=== PATIENT | male | born 1965 | race Hispanic/Latino ===

== ENCOUNTER 2016-12-08 10:55 | Inpatient (IN) | payer OTHER ==
[2016-12-08] MEDS ORDERED: Albuterol-Ipratrop 3 mg / 0.5 (3 ml) UD ONE (11:01)
[2016-12-08] MEDS ORDERED: Albuterol-Ipratrop 3 mg / 0.5 (3 ml) UD IH STA (11:03)
[2016-12-08] MEDS ORDERED: cefTRIAXone 1 gm 100 ML IV STA (11:04)
[2016-12-08] MEDS ORDERED: Azithromycin 500MG/NS 250ml 250 ML IV STA (11:04)
--- NOTE | 2016-12-08 11:08 | ED PDOC ---
Arrival/HPI - General Chief Complaint: Shortness Of Breath Time Seen by Provider: 12/08/16 10:56 Historian: Patient - History of Present Illness Narrative History of Present Illness (Text): 12/08/16 11:07 51 year old male with a past medical history that includes COPD, atrial fibrillation on Coumadin, sleep apnea, and obesity presents to the emergency department with fevers, chills, and cough since . Denies chest pain, nausea, vomiting, or other complaints. Time/Duration: < week Symptom Onset: Gradual Symptom Course: Unchanged Modifying Factors (Text): None Associated Symptoms (Text): None Past Medical History - Provider Review Nursing Documentation Reviewed: Yes - Past History Past History: No Previous - Infectious Disease Hx of Infectious Diseases: None - Tetanus Immunization Tetanus Immunization: Unknown - Past Medical History Past Medical History: No Previous - Cardiac Hx Atrial Fibrillation: Yes Hx Congestive Heart Failure: Yes Hx Hypertension: Yes - Pulmonary Hx Respiratory Disorders: Yes (SOB [id number]) Hx Bronchitis: Yes Hx Chronic Obstructive Pulmonary Disease (COPD): Yes Hx Pneumonia: Yes - Neurological HX Cerebrovascular Accident: No - HEENT Hx HEENT Disorder: No Hx Blind: No Hx Cataracts: No Hx Deafness: No Hx Difficulty Chewing: No Hx Epistaxis: No Hx Glaucoma: No Hx Macular Degeneration: No - Renal Hx Renal Failure: No - Endocrine/Metabolic Hx Diabetes Mellitus Type 2: Yes - Hematological/Oncological Hx Unexplained Bleeding: No - Integumentary Hx Dermatological Disorder: No Hx Basal Cell Carcinoma: No Hx Eczema: No Hx Melanoma: No Hx Psoriasis: No Hx Squamous Cell Carcinoma: No - Musculoskeletal/Rheumatological Hx Falls: No - Gastrointestinal Hx Gastrointestinal Disorders: Yes Other/Comment: umbilical hernia repair more then five years ago - Genitourinary/Gynecological Hx Hematuria: Yes Hx Urinary Tract Infection: Yes - Psychiatric Hx Anxiety: Yes Hx Substance Use: No - Surgical History Other/Comment: umbilical hernia sx - Anesthesia Hx Anesthesia Reactions: No Hx Malignant Hyperthermia: No - Suicidal Assessment Feels Threatened In Home Enviroment: No Family/Social History - Physician Review Nursing Documentation Reviewed: Yes Family/Social History: Unknown Family HX Smoking Status: Former Smoker Hx Alcohol Use: No Amount per day: 2 Hx Substance Use: No Hx Substance Use Treatment: No Allergies/Home Meds Allergies/Adverse Reactions: Allergies cat dander Allergy (Uncoded 12/08/16 11:01) SHORTNESS OF BREATH Home Medications: Home Meds Medication Instructions Recorded Confirmed Allopurinol [Zyloprim] 100 mg PO DAILY 01/01/16 05/22/16 Benzonatate 100 mg PO TID 01/01/16 05/22/16 Furosemide [Lasix] 40 mg PO DAILY 01/01/16 05/22/16 Albuterol HFA [Ventolin HFA 90 2 puff IH [id number] PRN 02/14/16 05/22/16 mcg/actuation (8 g)] Review of Systems - Physician Review All systems were reviewed & negative as marked: Yes Physical Exam - Physical Exam Narrative Physical Exam (Text): - Review of Systems Constitutional: Fevers, Chills. absent: Fatigue, Weight Change Eyes: Normal ENT: Normal Respiratory: Cough absent: Sputum Cardiovascular: Normal absent: Chest pain, Palpitations, Syncope Gastrointestinal: Normal absent: Abdominal pain, Diarrhea, Nausea, Vomiting Genitourinary: Normal. absent: Dysuria, Frequency, Hematuria Musculoskeletal: Normal. absent: Arthralgias, Back Pain, Neck Pain Skin: Normal Neurological: Normal absent: Focal Weakness Endocrine: Normal Hemo/Lymphatic: Normal Psychiatric: Normal - Physical exam Patient appears age appropriate, speaking full sentences without difficulty - Systems Exam Head: Present: Atraumatic, Normocephalic Pupils: Present: PERRL Extraocular Muscles: Present: EOMI Conjunctiva: Present: Normal Mouth: Present: Moist Mucous Membranes Neck: Present: Normal Range of Motion. No: MIDLINE TENDERNESS, Paraspinal Tenderness Respiratory/Chest: Present: Expiratory wheezing in all lung gilliam, Good Air Exchange. No: Respiratory Distress, Accessory Muscle Use, Tachypneic Cardiovascular: Present: Regular Rate and Rhythm, Normal S1, S2, Peripheral Pulses Present. No: Murmurs Abdomen: Present: Normal Bowel Sounds, No: Tenderness, Peritoneal Signs, Rebound, Guarding, Distention Back: Present: Normal Inspection. No: Midline Tenderness, Paraspinal Tenderness Upper Extremity: Present: Normal Inspection. No: Cyanosis, Edema Lower Extremity: Present: Normal Inspection. No: Edema Neurological: Present: GCS=15, Speech Normal, cranial nerves II through XII fully intact with no cerebellar abnormality, neuro-sensory fully intact. No focal neurological deficits. Skin: Present: Warm, Dry, Normal Color. No: Rashes Lymphatic: Present: OX3, NI, NC Psychiatric: Present: Alert, Oriented x 3, Normal Insight, Normal Concentration Medical Decision Making ED Course and Treatment: Impression: 51 year old male presents with fever, chills, and cough for the past two days. On physical exam, patient has expiratory wheeze in all lung gilliam. Differential Diagnosis include but are not limited to: COPD exacerbation, PNA Plan: -- EKG, Chest X-ray -- Aspirin, Duoneb, Solu-Medrol, Rocephin, Azithromycin, Magnesium Sulfate -- Labs -- Reassess and disposition Prior Visits: Notes and results from previous visits were reviewed. Patient was last discharged discharged on 05/25/16 for acute exacerbation of COPD. Patient has a history of atrial fibrillation on Coumadin, sleep apnea, obesity, and COPD. Progress Notes: EKG shows NSR at 75 BPM with frequent PVC's, no ST segment elevations. Interpreted by me. Chest X-ray Charter Coordinator: Jad Degroot MD IMPRESSION: No active disease 12/08/16 11:[address] Shell in detail, agrees with tele obs, Dr. Ratliff on consult pt states he feels much better, but is still symptomatic. Wheezing improved aware of and agrees with plan as well - Critical Care Critical Care Minutes: 30 minutes - Lab Interpretations Lab Results: 12/08/16 11:00 12/08/16 11:00 Lab Results 12/08/16 11:00: WBC 20.9 H, RBC 4.63, Hgb 14.8, Hct 45.0, MCV 97.2, MCH 32.0, MCHC 32.9, RDW 15.1 H, Plt Count 277, MPV 10.1, Gran % 84.6 H, Lymph % (Auto) 9.7 L, [place] % (Auto) 4.3, Eos % (Auto) 1.2 L, Baso % (Auto) 0.2, Gran # 17.67 H , Lymph # 2.0, [place] # 0.9 H, Eos # 0.2, Baso # 0.04, PT 23.8 H, INR 2.20 H, APTT 34.8 H, Sodium 137, Potassium 3.7, Chloride 86 L, Carbon Dioxide 44 H, Anion Gap 11, BUN 19, Creatinine 0.8, Est GFR ( Amer) > 60, Est GFR (Non- Af Amer) > 60, Random Glucose 153 H, Calcium 9.4, Phosphorus 3.6, Magnesium 1.4 L, Total Bilirubin 0.9, AST 32, ALT 45, Alkaline Phosphatase 65, Lactate Dehydrogenase 616, Total Creatine Kinase 104, Troponin I 0.03, NT-Pro-B Natriuret Pep 548 H, Total Protein 7.9, Albumin 4.0, Globulin 3.9, Albumin/ Globulin Ratio 1.0 L - RAD Interpretation Radiology Orders: 12/08/16 11:04 CHEST PORTABLE [RAD] Stat - EKG Interpretation Interpreted by ED Physician: Yes Type: 12 lead EKG - Medication Orders Current Medication Orders: Azithromycin (Zithromax 500mg In Ns) 250 mls @ 166.667 mls/hr IV STAT STA PRN Reason: Protocol Stop: 12/08/16 12:33 Magnesium Sulfate/Dextrose (Magnesium Sulfate 1 Gm/100 Ml D5w) 100 mls @ 100 mls/hr IVPB ONCE ONE Stop: 12/08/16 12:03 Last Admin: 12/08/16 11:35 Dose: 100 MLS/HR eMAR Start Stop Document 12/08/16 11:35 JOL (Rec: 12/08/16 11:36 JOL [id number]) Intravenous Solution Start Date 12/08/16 Start Time 11:35 End Date 12/08/16 End time 12:35 Total Infusion Time 60 Discontinued Medications Albuterol/Ipratropium (Duoneb 3 Mg/0.5 Mg (3 Ml) Ud) Confirm Administered Dose 9 ml .ROUTE .STK-MED ONE Stop: 12/08/16 11:02 Last Admin: 12/08/16 11:35 Dose: 9 ML Albuterol/Ipratropium (Duoneb 3 Mg/0.5 Mg (3 Ml) Ud) 3 ml IH STAT STA Stop: 12/08/16 11:04 Last Admin: 12/08/16 11:35 Dose: 3 ML Aspirin (Aspirin Chewable) 324 mg PO STAT STA Stop: 12/08/16 11:04 Last Admin: 12/08/16 11:35 Dose: 324 MG Ceftriaxone Sodium (Rocephin 1 Gram Ivpb) 100 mls @ 200 mls/hr IV STAT STA PRN Reason: Protocol Stop: 12/08/16 11:33 Methylprednisolone (Solu-Medrol) 125 mg IVP STAT STA Stop: 12/08/16 11:04 Last Admin: 12/08/16 11:35 Dose: 125 MG IVP Administration Document 12/08/16 11:35 MAGGIE (Rec: 12/08/16 11:35 MAGGIE [id number]) Charges for Administration # of IVP Administrations 1 - Scribe Statement The provider has reviewed the documentation as recorded by the Petrona Keller Provider Scribe Attestation: All medical record entries made by the Elishaibe were at my direction and personally dictated by me. I have reviewed the chart and agree that the record accurately reflects my personal performance of the history, physical exam, medical decision making, and the department course for this patient. I have also personally directed, reviewed, and agree with the discharge instructions and disposition. Disposition/Present on Arrival - Present on Arrival Any Indicators Present on Arrival: No History of DVT/PE: No History of Uncontrolled Diabetes: No Urinary Catheter: No History of Decub. Ulcer: No History Surgical Site Infection Following: None - Disposition Have Diagnosis and Disposition been Completed?: Yes Diagnosis: Acute exacerbation of chronic obstructive pulmonary disease (COPD) Disposition: HOSPITALIZED Disposition Time: 11:56 Patient Plan: Observation Patient Problems: Current Active Problems Problem Status Diagnosed Acute exacerbation of chronic obstructive pulmonary disease (COPD) Acute Bradycardia Acute Condition: FAIR
[2016-12-08 11:12] LABS: ADD MANUAL DIFF? NO
[2016-12-08 11:14] LABS: BASO # 0.04 K/mm3 (0.0-2.0); BASO % 0.2 % (0.0-3.0); EOS # 0.2 (0.0-0.7); EOS % 1.2 % (1.5-5.0); GRAN # 17.67 (1.4-6.5); GRAN % 84.6 % (50.0-68.0); LYMPH % 9.7 % (22.0-35.0); MEAN CELL VOLUME 97.2 fL (80.0-105.0); MEAN CORPUSCULAR HGB CONC 32.9 g/dl (31.0-37.0); MEAN PLATELET VOLUME 10.1 fl (7.0-11.0); MONO # 0.9 (0.1-0.6); MONO % 4.3 % (1.0-6.0); PLATELET COUNT 277 10^3/uL (120.0-450.0); RED CELL DISTRIBUTION WIDTH 15.1 % (11.5-14.5); WHITE BLOOD COUNT 20.9 10^3/ul (4.5-11.0)
[2016-12-08 11:25] LABS: INR 2.2 (0.93-1.08); PARTIAL THROMBOPLASTIN TIME 34.8 Seconds (23.7-30.8)
--- NOTE | 2016-12-08 11:25 | RAD ---
HISTORY: cough COMPARISON: No prior. FINDINGS: LUNGS: No active pulmonary disease. PLEURA: No significant pleural effusion identified, no pneumothorax apparent. CARDIOVASCULAR: Normal. OSSEOUS STRUCTURES: No significant abnormalities. VISUALIZED UPPER ABDOMEN: Normal. OTHER FINDINGS: None. IMPRESSION: No active disease.
[2016-12-08 11:27] LABS: ALKALINE PHOSPHATASE 65 U/L (38-133); ALT/SGPT 45 U/L (7-56); AST/SGOT 32 U/L (15-59); BILIRUBIN,TOTAL 0.9 mg/dL (0.2-1.3); BLOOD UREA NITROGEN 19 mg/dL (7-21); CALCIUM 9.4 mg/dL (8.4-10.5); CHLORIDE 86 mmol/L (98-107); GFR AFRICAN-AMERICAN > 60; GLUCOSE,RANDOM 153 mg/dL (70-110); MAGNESIUM 1.4 mg/dL (1.7-2.2); PHOSPHOROUS 3.6 mg/dL (2.5-4.5); POTASSIUM 3.7 mmol/L (3.6-5.0); SODIUM 137 mmol/L (132-148); TOTAL PROTEIN 7.9 g/dL (5.8-8.3)
[2016-12-08 11:37] LABS: CARBON DIOXIDE 44 mmol/L (21-33)
[2016-12-08 11:39] LABS: TROPONIN I 0.03 ng/mL
[2016-12-08] MEDS ORDERED: Albuterol 0.083% Inhal Sol (2.5 mg/3 mL) UD IH PRN (11:57)
[2016-12-08] MEDS ORDERED: Albuterol-Ipratrop 3 mg / 0.5 (3 ml) UD IH PRN (11:57)
[2016-12-08] MEDS: MethylPREDNISolone 40 mg Vial IVP SCH ×3 (12:46→23:28)
[2016-12-08] MEDS: Omega-3-Acid Ethyl Esters 1 GM Cap PO SCH ×2 (13:08→18:01)
[2016-12-08] MEDS: Pantoprazole 40 mg EC Tab PO SCH (13:08)
[2016-12-08] MEDS: Levalbuterol 0.63 MG/3 ML Inhal Soln UD IH SCH ×2 (14:44→19:08)
--- NOTE | 2016-12-08 14:44 | CARD ---
APPROVED REPORT EKG Measurement Heart [id number] <Conclusion> Sinus rhythm with occasional premature ventricular complexes Nonspecific ST and T wave abnormality Abnormal ECG
[2016-12-08] MEDS: Levalbuterol 0.63 MG/3 ML Inhal Soln UD IH PRN ×2 (15:03→23:30)
[2016-12-08 15:21] LABS: CHOLESTEROL 127 mg/dL (130-200)
[2016-12-08] MEDS: Digoxin 125 mcg (0.125 mg) Tab PO SCH (15:34)
[2016-12-08] MEDS: Magnesium Oxide 400 mg Tab UD PO SCH ×2 (15:35→18:02)
[2016-12-08 16:01] VITALS: BMI 34.4
[2016-12-08] MEDS ORDERED: Pneumococcal 23-Valent Vaccine IM ONE (16:02)
[2016-12-08] MEDS: Thiamine 100 mg/ml Inj IV SCH (16:40)
[2016-12-08 16:49] LABS: ARTERIAL BLOOD GAS HCO3 38.4 mmol/L (21-28); ARTERIAL BLOOD GAS O2 CAPACITY 19.2 mL/dl (16-24); ARTERIAL BLOOD GAS O2 CONTENT 18.7 ML/dl (15-23); ARTERIAL BLOOD HGB O2 SAT 93.7 % (95.0-98.0); CARBOXYHEMOGLOBIN 3.1 % (0.5-1.5); HHB 2.7 % (0-5); METHEMOGLOBIN 0.5 % (0.0-3.0)
[2016-12-08 17:04] LABS: TROPONIN I 0.03 ng/mL
--- NOTE | 2016-12-08 17:57 | HP ---
HISTORY OF PRESENT ILLNESS: The patient is a 51-year-old morbidly obese male with poor compliance came to the office with increasing shortness of breath, wheezing, difficulty with breathing and shortness of breath, dyspnea on exertion. The patient missed his last office appointment. The patient ____ that the symptoms are getting worse for the last 3 days. The patient came to the office, then the patient was sent to the Emergency Room because of respiratory compromise. The patient was brought to the Emergency Room by [facility] ambulance. The patient also complained of fever, chills, cough. A 13-system review was done. Pertinent positive and negative dictated above. CODE STATUS: Full code. ALLERGIES: CAT DANDER. Height is 5 feet 7 inches. WEIGHT: 220. BMI: 35. HOME MEDICATIONS: As per the office records reviewed. The patient is on DuoNeb nebulizer treatment, allopurinol 300 mg daily, Altace 2.5 mg daily which is stopped. The patient is on Amaryl 4 mg once or twice a day. The patient is ____ 62.5, 25. Coreg 12.5 mg twice a day, Coumadin 2 mg daily, Cymbalta 30 mg daily, digoxin 125 mcg daily, Drisdol 50,000 weekly, Folic acid 1 mg daily. Lasix 40 mg twice a day to either 3 times a day or q.i.d. p.r.n., Lipitor 60 mg daily, gemfibrozil or Lovaza, magnesium oxide 2 tablets twice a day 400. The patient is on MiraLax 3 times a day, prednisone 10, Protonix 40 mg, thiamine 100 mg, verapamil 40 mg 3 times a day, vitamin D3, 2000 units daily, Singulair 10 mg daily, Ultram 50 mg 3 times a day, Tessalon Perles 200 three times a day, Lasix 40 mg twice a day around the clock and t.i.d. and q.i.d. p.r.n., Lipitor 20 mg daily, Lovaza 2 capsules twice a day, Xopenex nebulizer. SOCIAL HISTORY: Positive for smoking. Positive for alcohol use. Denies communicable transmissible diseases. PAST MEDICAL AND SURGICAL HISTORY: End-stage chronic oxygen and steroid dependent chronic obstructive pulmonary disease, history of sleep apnea, history of morbid obesity, history of poor compliance, history of noninsulin- requiring diabetes mellitus, history of paroxysmal atrial fibrillation, history of dilated cardiomyopathy, history of systolic congestive heart failure, history of diabetic neuropathy, history of dyslipidemia, hyperlipidemia, hypertriglyceridemia, history of hypomagnesemia, history of hypercholesterolemia. The patient's past medical history is significant for multiple exacerbations of COPD with bronchospasm, history of severe advanced obstructive sleep apnea, respiratory failure, history ____, respiratory failure , history of morbid obesity, history of hypovitaminosis D, history of left bundle branch block, history of hypoxemia, metabolic alkalosis, history of systemic inflammatory response syndrome, history of noncompliance, history of acute on chronic systolic congestive heart failure. The patient's past medical history is also significant for congestive heart failure, atrial fibrillation, history of hyperuricemia, history of anxiety, history of pneumonia, history of umbilical hernia surgery, history of sleep apnea. PHYSICAL EXAMINATION: GENERAL: The patient is seen in stretcher #7 in the Emergency Room. VITAL SIGNS: T-max 98.4, heart rate 78-98, blood pressure 105/80. Respirations 24-26, O2 sat on nasal canula 95%. HEAD: Normocephalic, atraumatic. HEENT: Shows a short neck decreased oropharyngeal space. NECK: No neck rigidity. Questionable jugular venous distension. CHEST: Kyphosis. LUNGS: Shows decreased air entry. Positive wheezing, positive rhonchi. CARDIOVASCULAR: Shows S1, S2, regular rhythm. Questionable soft systolic murmur right second intercostal space, left sternal border, left second intercostal space. ABDOMEN: Morbidly obese, protuberant. GENITALIA: Male. RECTAL: Deferred. EXTREMITIES: surprisingly does not show pitting edema, trace swelling. No calf tenderness. No Homans sign. NEUROLOGIC: The patient is alert, awake, oriented x 3. Cranial nerves II-XII limited. Gait examination not tested. VASCULAR: Palpable pulses. MUSCULOSKELETAL: Shows a body mass index of greater than 34. DIAGNOSTICS: WBC 21,000, hemoglobin and hematocrit 14.8 and 45 platelet 277, granulocytes 85%. PT 23.8, INR 2.2. Sodium 137, potassium 3.7, chloride 86, CO2 of 24, anion gap 11, BUN 19, creatinine 0.8, GFR greater than 60, glucose 153, calcium 9.4, phosphorus 3.6, magnesium 1.4, troponin 0.03. BNP 548. Chest x-ray was done in the Emergency Room, shows some increased lung markings. EKG done in the Emergency Room shows sinus rhythm, baseline artifact. TREATMENT IN THE EMERGENCY ROOM: The patient was given Zithromax 500 IV, Solu- Medrol 125 was given. The patient was given magnesium sulfate 1 gram, DuoNeb nebulizer was given, aspirin 324 was given. The patient was advised to be admitted. Initially, the patient wanted to be discharged, but the patient then agreed to be admitted. Also noted to be mentioned that when patient came to the office today in the morning, the patient refused to go to the Emergency Room , but later on changed his mind and the patient's next of kin brought the patient to the Emergency Room by [email or web address] ambulance. IMPRESSION AND PLAN: 1. Acute exacerbation of chronic obstructive pulmonary disease with bronchospasm and respiratory insufficiency and Respiratory Failure with hypercarbia.. 2. Leukocytosis with granulocytosis. 3. Coumadin dependent atrial fibrillation. 4. Metabolic alkalosis. 5. Type 2 non-insulin requiring diabetes mellitus. 6. Hypomagnesemia. 7. History of acute on chronic recurrent systolic congestive heart failure. 8. Morbid obesity. 9. Poor compliance. 10. History of systolic congestive heart failure. 11. History of nicotine dependence. 12. History of hyperuricemia. 13. History of Coumadin dependent atrial fibrillation. 14. Hypovitaminosis D. 15. History of dyslipidemia, history of hypomagnesemia, history of constipation. PLAN: At this time, the patient is to be placed on telemetry observation. The patient has been ordered serial labs, serial cardiac enzymes. Blood cultures ordered. Pulmonary, cardiology consultations ordered. The patient has been ordered Calan 40 mg 3 times a day, Coreg 12.5 twice a day, Coumadin 2 mg daily, Cymbalta 30 mg daily. The patient is started on Diamox 250 twice a day, Vibramycin 100 mg IV q. 12. The patient received multiple DuoNeb treatments. The patient is on folic acid, Humalog high dose sliding scale coverage, digoxin 0.125 daily, Lipitor 20 mg daily, Lovaza 2 capsules twice a day, magnesium oxide 400 mg 3 times a day. The patient was given magnesium sulfate rider, Protonix 40 daily, Rocephin 1 gram IV daily. Solu-Medrol was given 125. The patient will be continued on Solu-Medrol 40 mg IV q. 6, Singulair 10 mg at bedtime, Tessalon Perles 100 mg 3 times a day, Ultram 50 mg b.i.d. p.r.n., thiamine 100 mg daily, Xopenex nebulizer 163 mg q. 6 hours, allopurinol 100 mg daily, Amaryl 4 mg at breakfast. The patient has a repeat EKG ordered. Consistent carbohydrate heart healthy diet ordered. The patient is to be continued on the above therapeutic intervention until further evaluation and recommendations by cardiology and pulmonary. All diagnostic data, therapeutic intervention reviewed. Orders reviewed. The patient's condition explained to the patient and the patient's girlfriend and the daughter ____ at length. I have explained to them that the patient's prognosis is guarded to poor because of noncompliance and because of his multiple complications with underlying comorbidity, which they acknowledged and understand. The patient's further management will be dependent on the patient's clinical condition, hemodynamic status, and as per patient response to therapeutic intervention, as per patient's diagnostic test results and as per recommendation by all physicians involved in the care of the patient. Dictated and electronically signed, not read. Cedrick Shell MD cc: [id number] TT: 12/08/2016 17:56:31 jn MTDD
[2016-12-08] MEDS: Insulin Lispro (HUMAlog) HIGH Coverage SC SCH ×2 (18:00→21:47)
--- NOTE | 2016-12-08 19:39 | CON ---
DATE: 12/08/2016 REFERRING PHYSICIAN: Dr. Shell. REASON FOR CONSULT: Exacerbation of chronic obstructive lung disease, respiratory failure, noncompli ant. HISTORY OF PRESENT ILLNESS: This is a 51-year-old gentleman with severe obstructive lung disease, hy poventilation syndrome, may have a sleep apnea syndrome, never had a sleep study done, noncompliant, history of atrial fibrillation, who comes into the Emergency Room with fever, chills, cough, shortnes s of breath. Received IV and inhaled bronchodilator with some benefit of persistent symptoms h im to be admitted. PAST MEDICAL HISTORY: Atrial fibrillation, diastolic heart failure, hypertension, chronic obstructiv e lung disease, history of pneumonia, history of diabetes. FAMILY HISTORY: No significant cardiopulmonary disease reported. SOCIAL HISTORY: Former smoker, denied any alcohol use. ALLERGIES: TO NO MEDICATION, BUT HE IS ALLERGIC TO CAT DANDER. MEDICATIONS: He is on Amaryl 4 mg ACB, Calan 40 mg 3 times a day, Coreg 12.5 mg twice a day, Coumadi n 2 mg daily, Cymbalta 30 mg daily, Diamox 250 mg twice a day, doxycycline 100 mg twice a day, folic acid 1 mg daily, insulin coverage, Klonopin 0.25 mg twice a day, digoxin 0.125 mg daily, Lipitor 20 m g daily, Lovaza 2 grams twice a day, mag oxide 400 mg 3 times a day, Nicoderm patch daily, Protonix 4 0 mg daily, Rocephin 1 gram daily, Singulair 10 mg daily, Solu-Medrol 40 mg q.6 hours, Tessalon Perle s 3 times a day, vitamin B 100 mg daily, Xopenex 0.63 q.2 hours p.r.n. and q.6 hours around the clock , allopurinol 100 mg daily. REVIEW OF SYSTEMS: No headache. Has some rhinitis, postnasal drip, cough and shortness of breath. No chest pain, no nausea, no vomiting, no diarrhea. No dysuria. or leg swelling. PHYSICAL EXAMINATION: GENERAL: Sitting side of the bed, [id number] distress secondary to cough and shortness of dequan th. VITAL SIGNS: Temp is 98, heart rate is 77, respiratory rate is 26, blood pressure 170/80, pulse ox i s 90% on nasal cannula. HEENT: Moist mucous membranes. Crowded airway. Mallampati score is 4. NECK: Supple. No JVD. LUNGS: Diffuse expiratory wheezing, poor airflow. HEART: S1, S2 tachycardic. ABDOMEN: Soft, nontender. No organomegaly. EXTREMITIES: Has trace edema. NEUROLOGIC: Awake, alert, follows simple commands. LABORATORY DATA: Shows hemoglobin 14.8, hematocrit 45.0, WBC 20.9, and platelet is 277. INR is 2.20 , PTT is 34. Blood gases shows pH 7.40, pCO2 62, O2 of 103; this is on 40% oxygen. Sodium 137, pota ssium 3.7, chloride 86, bicarbonate 44, BUN 19, creatinine 0.8, glucose 153, calcium , phosphoru s 3.6, magnesium 1.4, AST 32, ALT 45, alkaline phosphatase is 65. Troponin is less than 0.03, proBNP 548, albumin 4.0, triglycerides 146, HDL cholesterol is 40. IMPRESSION AND PLAN: Respiratory failure with CO2 retention and hypoxemia, chronic obstructive lung disease, history of atrial fibrillation, may have a sleep apnea syndrome, diabetes, hypertension. Ca se discussed with the nursing staff. The patient was placed on BiPAP 14/8 with 40% oxygen while slee ping and respiratory distress. Continue IV and inhaled bronchodilator. Gastric prophylaxis. Antico agulation. Deep venous thrombosis prophylaxis. Fall precaution. Avoid sedation. Thank you and will follow with you. Ron Ratliff MD cc: [id number] TT: 12/08/2016 19:38:56 Confirmation # [id number] Dictation # [id number] ulises
[2016-12-08 20:47] LABS: TROPONIN I 0.02 ng/mL
[2016-12-09] MEDS: Levalbuterol 0.63 MG/3 ML Inhal Soln UD IH SCH ×4 (02:25→20:09)
[2016-12-09] MEDS: MethylPREDNISolone 40 mg Vial IVP SCH ×3 (05:18→17:33)
[2016-12-09 07:24] LABS: INR 1.58 (0.93-1.08)
[2016-12-09 07:25] LABS: MEAN CELL VOLUME 96.9 fL (80.0-105.0); MEAN CORPUSCULAR HEMOGLOBIN 31.3 pg (25.0-35.0); MEAN CORPUSCULAR HGB CONC 32.3 g/dl (31.0-37.0); MEAN PLATELET VOLUME 10.2 fl (7.0-11.0); PLATELET COUNT 272 10^3/uL (120.0-450.0); RED CELL DISTRIBUTION WIDTH 15.2 % (11.5-14.5)
[2016-12-09 07:27] LABS: ADD MANUAL DIFF? YES; WHITE BLOOD COUNT 27.5 10^3/ul (4.5-11.0)
[2016-12-09 07:29] LABS: ALKALINE PHOSPHATASE 72 U/L (38-133); ALT/SGPT 42 U/L (7-56); AST/SGOT 30 U/L (15-59); BILIRUBIN,DIRECT 0.5 mg/dL (0.0-0.4); BILIRUBIN,TOTAL 0.6 mg/dL (0.2-1.3); BLOOD UREA NITROGEN 22 mg/dL (7-21); CALCIUM 9.6 mg/dL (8.4-10.5); CARBON DIOXIDE 38 mmol/L (21-33); CHLORIDE 92 mmol/L (98-107); GFR AFRICAN-AMERICAN > 60; GLUCOSE,RANDOM 167 mg/dL (70-110); SODIUM 139 mmol/L (132-148); TOTAL PROTEIN 8.2 g/dL (5.8-8.3)
[2016-12-09] MEDS: Insulin Lispro (HUMAlog) HIGH Coverage SC SCH ×4 (08:01→21:48)
[2016-12-09 08:37] LABS: BAND 1 % (0-2); NEUTROPHIL 94 % (50.0-70.0)
[2016-12-09] MEDS ORDERED: cefTRIAXone 1 gm 100 ML IVPB SCH (10:00)
[2016-12-09] MEDS: Magnesium Oxide 400 mg Tab UD PO SCH ×3 (10:18→17:30)
[2016-12-09] MEDS: Pantoprazole 40 mg EC Tab PO SCH (10:19)
[2016-12-09] MEDS: Thiamine 100 mg/ml Inj IV SCH (10:19)
[2016-12-09] MEDS: Omega-3-Acid Ethyl Esters 1 GM Cap PO SCH ×2 (10:25→17:30)
--- NOTE | 2016-12-09 11:47 | CP.PCM.CON ---
History of Present Illness - History of Present Illness History of Present Illness: 51 year old male with PMH of COPD with a history of heavy smoking, systolic CHF with Ejection fraction 10-15%, HTN, S/P umbilical hernia surgery, obesity with BMI 34 came in to [facility] complaining of cough associated with SOB and chills but denies fever, for the past 3 days. He denies chest pain, no clear phlegm, no headache or dizziness, no rhinorrhea, no sore throat, no body aches. He also denies nausea or vomiting, no abdominal pain, no diarrhea, no dysuria, no dysphagia. In the ED, the patient is noted to have leukocytosis and Infectious Diseases consult is requested to further evaluate and manage. The patient denies recent travel outside of [place] in the past 3 months, denies animal contacts, has not been hospitalized in the past 3 months. He does not recall being on antibiotics in the past 3 months but has been treated for COPD exacerbation in the past 3 months but not hospitalized. Review of Systems - Review of Systems All systems: reviewed and no additional remarkable complaints except (as per HPI ) Past Patient History - Infectious Disease Hx of Infectious Diseases: None - Tetanus Immunizations Tetanus Immunization: Unknown - Past Medical History & Family History Past Medical History?: Yes Past Family History: Reviewed and not pertinent - Past Social History Smoking Status: Heavy Smoker > 10 Cigarettes Daily Alcohol: Occasional Drugs: Denies Home Situation {Lives}: With Family - CARDIAC Hx Cardia Arrhythmia: Yes (a fib) Hx Congestive Heart Failure: Yes Hx Hypertension: Yes - PULMONARY Hx Respiratory Disorders: Yes (SOB [id number]/15) Hx Bronchitis: Yes Hx Chronic Obstructive Pulmonary Disease (COPD): Yes Hx Pneumonia: Yes Hx Sleep Apnea: Yes Other/Comment: has home o2 and nebulizer machine - NEUROLOGICAL HX Cerebrovascular Accident: No - HEENT Hx HEENT Problems: No Hx Blind: No Hx Cataracts: No Hx Deafness: No Hx Difficulty Chewing: No Hx Epistaxis: No Hx Glaucoma: No Hx Macular Degeneration: No - RENAL Hx Renal Failure: No - ENDOCRINE/METABOLIC Hx Diabetes Mellitus Type 2: Yes - HEMATOLOGICAL/ONCOLOGICAL Hx Unexplained Bleeding: No - INTEGUMENTARY Other/Comment: multiple skin discolorations to ble - MUSCULOSKELETAL/RHEUMATOLOGICAL Hx Falls: No - GASTROINTESTINAL Hx Gastrointestinal Disorders: Yes (obese) Other/Comment: umbilical hernia repair more then five years ago - GENITOURINARY/GYNECOLOGICAL Hx Hematuria: Yes Hx Urinary Tract Infection: Yes - PSYCHIATRIC Hx Substance Use: No - SURGICAL HISTORY Other/Comment: umbilical hernia sx - ANESTHESIA Hx Anesthesia Reactions: No Hx Malignant Hyperthermia: No Meds Allergies/Adverse Reactions: Allergies Allergy/AdvReac Type Severity Reaction Status Date / Time cat dander Allergy SHORTNESS Uncoded 12/08/16 11:01 OF BREATH - Medications Medications: Current Medications Acetazolamide (Diamox 250 Mg Tab) 250 mg PO BID [facility] Last Admin: 12/08/16 18:00 Dose: 250 mg Allopurinol (Zyloprim) 100 mg PO DAILY [facility] Last Admin: 12/08/16 13:08 Dose: 100 mg Atorvastatin Calcium (Lipitor) 20 mg PO DIN [facility] Last Admin: 12/08/16 18:01 Dose: 20 mg Benzonatate (Tessalon Perles) 100 mg PO TID [facility] Last Admin: 12/08/16 18:02 Dose: 100 mg Carvedilol (Coreg) 12.5 mg PO BID [facility] Last Admin: 12/08/16 18:00 Dose: 12.5 mg Clonazepam (Klonopin) 0.25 mg PO BID [facility] PRN Reason: Protocol Last Admin: 12/08/16 18:01 Dose: 0.25 mg Digoxin (Lanoxin) 0.125 mg PO 1400 [facility] Last Admin: 12/08/16 15:34 Dose: 0.125 mg Duloxetine HCl (Cymbalta) 30 mg PO DAILY [facility] Last Admin: 12/08/16 13:07 Dose: 30 mg Folic Acid (Folic Acid) 1 mg PO DAILY [facility] Last Admin: 12/08/16 13:07 Dose: 1 mg Glimepiride (Amaryl) 4 mg PO ACB [facility] Last Admin: 12/08/16 12:48 Dose: Not Given Ceftriaxone Sodium (Rocephin 1 Gram Ivpb) 100 mls @ 100 mls/hr IVPB DAILY [facility] PRN Reason: Protocol Stop: 12/18/16 10:59 Doxycycline Hyclate 100 mg/ (Sodium Chloride) 100 mls @ 100 mls/hr IVPB Q12 [facility] PRN Reason: Protocol Stop: 12/16/16 12:16 Insulin Human Lispro (Humalog High) 0 units SC ACHS [facility] Last Admin: 12/08/16 21:47 Dose: Not Given Levalbuterol HCl (Xopenex) 0.63 mg IH [id number] [facility] Last Admin: 12/08/16 19:08 Dose: 0.63 mg Levalbuterol HCl (Xopenex) 0.63 mg IH Q2H PRN PRN Reason: Shortness of Breath Last Admin: 12/08/16 15:03 Dose: 0.63 mg Magnesium Oxide (Mag-Ox) 400 mg PO TID [facility] Last Admin: 12/08/16 18:02 Dose: 400 mg Methylprednisolone (Solu-Medrol) 40 mg IVP Q6H [facility] Last Admin: 12/08/16 18:02 Dose: 40 mg Montelukast Sodium (Singulair) 10 mg PO HS [facility] Last Admin: 12/08/16 21:56 Dose: 10 mg Nicotine (Nicoderm Cq) 1 patch TD DAILY [facility] Last Admin: 12/08/16 18:27 Dose: Not Given [id number] Ethyl Esters (Lovaza) 2 gm PO BID [facility] Last Admin: 12/08/16 18:01 Dose: Not Given Pantoprazole Sodium (Protonix Ec Tab) 40 mg PO DAILY [facility] Last Admin: 12/08/16 13:08 Dose: 40 mg Thiamine HCl (Vitamin B1 Inj) 100 mg IV DAILY [facility] Stop: 12/11/16 16:30 Last Admin: 12/08/16 16:40 Dose: Not Given Tramadol HCl (Ultram) 50 mg PO TID PRN PRN Reason: Pain, moderate (4-7) Verapamil HCl (Calan Tab) 40 mg PO TID [facility] Last Admin: 12/08/16 17:59 Dose: 40 mg Warfarin Sodium (Coumadin) 2 mg PO 1800 [facility] PRN Reason: Protocol Last Admin: 12/08/16 18:00 Dose: 2 mg Physical Exam - Constitutional Appears: Non-toxic, No Acute Distress - Head Exam Head Exam: NORMAL INSPECTION - ENT Exam ENT Exam: Mucous Membranes Moist - Neck Exam Neck exam: Negative for: Lymphadenopathy, Meningismus - Respiratory Exam Respiratory Exam: Decreased Breath Sounds - Cardiovascular Exam Cardiovascular Exam: +S1, +S2 - GI/Abdominal Exam GI & Abdominal Exam: Soft. absent: Tenderness Results - Vital Signs Recent Vital Signs: Last Vital Signs Temp 98.1 F 12/08/16 18:00 Pulse 78 12/08/16 22:00 Resp 18 12/08/16 18:00 BP 133/71 12/08/16 18:00 Pulse Ox 95 12/08/16 11:58 - Labs Result Diagrams: 12/09/16 07:04 12/09/16 07:04 Labs: Laboratory Results - last 24 hr 12/08/16 12/08/16 12/08/16 16:10 16:40 18:35 pCO2 62 H pO2 103.0 H HCO3 38.4 H ABG pH 7.40 ABG Total CO2 40.3 H ABG O2 Saturation 97.2 ABG O2 Content 18.7 ABG Base Excess 10.9 H ABG Hemoglobin 14.1 ABG Carboxyhemoglobin 3.1 H POC ABG HHb (Measured) 2.7 ABG Methemoglobin 0.5 ABG O2 Capacity 19.2 Hgb O2 Saturation 93.7 L FiO2 40.0 POC Glucose (mg/dL) Total Creatine Kinase 96 Troponin I 0.03 Urine Opiates Screen Negative Urine Methadone Screen Negative Ur Barbiturates Screen Negative Ur Phencyclidine Scrn Negative Ur Amphetamines Screen Negative U Benzodiazepines Scrn Negative U Oth Cocaine Metabols Negative U Cannabinoids Screen Negative 12/08/16 12/08/16 20:00 21:35 pCO2 pO2 HCO3 ABG pH ABG Total CO2 ABG O2 Saturation ABG O2 Content ABG Base Excess ABG Hemoglobin ABG Carboxyhemoglobin POC ABG HHb (Measured) ABG Methemoglobin ABG O2 Capacity Hgb O2 Saturation FiO2 POC Glucose (mg/dL) 174 H Total Creatine Kinase 111 Troponin I 0.02 D Urine Opiates Screen Urine Methadone Screen Ur Barbiturates Screen Ur Phencyclidine Scrn Ur Amphetamines Screen U Benzodiazepines Scrn U Oth Cocaine Metabols U Cannabinoids Screen Assessment & Plan - Assessment and Plan (Free Text) Plan: Assessment Systemic Inflammatory Response Syndrome, R/O sepsis source to be determined; patient is presenting with acute exacerabtion of COPD history of Ventilator-dependent respiratory failure with shock - from HCAP history of ESBL E. coli HCAP in 2014 CHF with EF 25% COPD history of ESBL E. coli pneumonia in 04/2015 history of recent NSTEMI Afib DM history of alcohol abuse Plan started patient on Cefepime and Doxycycline pending blood, sputum cx, PCT; CXR reviewed which did not show infiltrates Will monitor clinically
[2016-12-09] MEDS: Cefepime 1gm in NS 100ml 100 ML IVPB SCH ×2 (12:11→21:46)
--- NOTE | 2016-12-09 12:14 | CARD ---
APPROVED REPORT EKG Measurement Heart [id number] <Conclusion> Normal sinus rhythm Nonspecific intraventricular block Abnormal ECG
[2016-12-09] MEDS: Digoxin 125 mcg (0.125 mg) Tab PO SCH (14:06)
--- NOTE | 2016-12-09 15:51 | PN ---
DATE: 12/09/2016 The patient is seen sitting up in the bed in room 261, bed 1. The patient states that his breathing is significantly better. The patient does not complain of any chest pain or shortness of breath today. The patient stated that his breathing is significantly better, almost back to normal. PHYSICAL EXAMINATION: VITAL SIGNS: T-max 98.3, pulse 78, blood pressure 135/75-124/77, respirations 20, O2 sat is 99%. Intake/output noted. HEAD: Normocephalic, atraumatic. HEENT: Shows pink conjunctivae, anicteric sclerae. No oropharyngeal lesion. NECK: No neck rigidity. CHEST: Kyphosis. LUNGS: Shows decreased breath sounds. Positive rhonchi. CARDIOVASCULAR: S1, S2, regular rhythm. ABDOMEN: Protuberant, obese. GENITALIA: Male. RECTAL: Deferred. EXTREMITIES: Shows no pitting edema, no calf tenderness, no Homans signs. ABDOMEN: Protuberant, obese. MUSCULOSKELETAL: Shows a body mass index of 35. NEUROLOGIC: Cranial nerves II-XII limited. GAIT: Not tested. VASCULAR: Palpable pulses. PSYCHIATRIC: Negative. DIAGNOSTICS: WBCs 27.5, granulocytes 94%. PT 17.1. Chemistry: Chloride 92, CO2 is down to 38 from 48, BUN 22 from 19. Fingerstick blood sugar 147, 182, 167, 164. Magnesium 2.0. LFTs are normal. Troponin is negative. Procalcitonin level is 0.12. Cholesterol is 127, LDL 53, HDL 40. Urine drug screen is negative. Blood cultures no growth. EKG done today shows sinus rhythm, questionable left axis deviation. IMPRESSION AND PLAN: 1. Respiratory failure with hypercarbia and hypoxemia. 2. Systemic inflammatory response syndrome. 3. Hypertension. 4. History of Coumadin dependent atrial fibrillation. 5. Leukocytosis with granulocytosis. 6. Coumadin-dependent atrial fibrillation. 7. Hypercarbia. 8. Metabolic alkalosis. 9. Hypomagnesemia. 10. Noninsulin requiring diabetes mellitus. 11. Hypochloremic metabolic alkalosis. 12. Hypomagnesemia. 13. Questionable left axis deviation. 14. Acute exacerbation of chronic obstructive pulmonary disease with bronchospasm and respiratory failure. 15. Morbid obesity with elevated body mass index of 35. 16. Morbid obesity. 17. Hypertension. 18. Leukocytosis with granulocytosis. 19. Diabetic neuropathy. 20. History of systolic congestive heart failure. 21. Hypomagnesemia. 22. History of nicotine and alcohol abuse. 23. History of hyperuricemia. 1. Acute exacerbation of chronic obstructive pulmonary disease with bronchospasm and respiratory insufficiency and Respiratory Failure with hypercarbia.. 2. Leukocytosis with granulocytosis. 3. Coumadin dependent atrial fibrillation. 4. Metabolic alkalosis. 5. Type 2 non-insulin requiring diabetes mellitus. 6. Hypomagnesemia. 7. History of acute on chronic recurrent systolic congestive heart failure. 8. Morbid obesity. 9. Poor compliance. 10. History of systolic congestive heart failure. 11. History of nicotine dependence. 12. History of hyperuricemia. 13. History of Coumadin dependent atrial fibrillation. 14. Hypovitaminosis D. 15. History of dyslipidemia, history of hypomagnesemia, history of constipation. PLAN: At this time, patient is to be continued on therapeutic interventions as per the MAR with serial labs. CURRENT CONSULTATIONS: 1. Cardiology. 2. Infectious disease. 3. Pulmonary. CURRENT MEDICATIONS: 1. Calan 40 mg 3 times a day. 2. Coreg 12.5 twice a day. 3. Coumadin 2 mg daily. 4. Cymbalta 30 mg daily. 5. Diamox 250 twice a day. 6. Vibramycin 100 mg IV q. 12. 7. Folic acid 1 mg daily. 8. Humalog high dose sliding scale coverage before meals and at bedtime. 9. Klonopin 0.25 twice a day, which was started yesterday for upper extremity tremors. 10. Digoxin 0.125 11. Lasix 40 mg p.o. daily ordered by cardiology. 12. Lipitor 20 mg daily. 13. Lovaza 2 grams twice a day. 14. Magnesium oxide 400 mg 3 times a day. 15. Cefepime 1 g IV q. 8. 16. Nicotine patch 21 mg daily. 17. Protonix 40 mg daily. 18. Solu-Medrol 40 mg IV q. 6. 19. Singulair 10 mg at bedtime. 20. Tessalon Perles 100 three times a day. 21. Ultram 50 mg t.i.d. p.r.n. 22. Thiamine 100 mg IV daily. 23. Xopenex 0.63 mg q. 2 hours p.r.n. and q. 6 hours around the clock. 24. Allopurinol 300 mg daily. 25. Amaryl 4 mg with breakfast. The patient is also ordered BiPAP setting /, FiO2 40%. The patient has been ordered out of bed. The patient will be continued on the above therapeutic intervention. The patient updated about his condition. The patient was counseled about cessation of smoking and alcohol. The patient was counseled about weight loss, etc. All details discussed and explained to the patient at length and all questions and concerns answered. Dictated and electronically signed, not read. Cedrick Shell MD cc: [id number] TT: 12/09/2016 15:50:11 Confirmation # [id number] Dictation # [id number] en MTDD
--- NOTE | 2016-12-09 16:43 | PN ---
DATE: 12/09/2016 REFERRING PHYSICIAN: Dr. Shell SUBJECTIVE: He is lying in the bed, feels better, tolerated noninvasive ventilation in the last nigh t, still coughing, shortness of breath and wheezing. No nausea, no vomiting, no diarrhea. Decreased leg swelling. OBJECTIVE: GENERAL: No acute distress. VITAL SIGNS: Temperature is 98, heart rate is 78, respiratory rate is 20, blood pressure 135/75, pul se ox 94% on BiPAP. HEENT: Moist mucous membrane. Crowded airway. Mallampati score is 4. NECK: Supple. No JVD. LUNGS: Has a prolonged expiratory phase with wheezing. HEART: S1, S2. ABDOMEN: Soft, nontender. No organomegaly. EXTREMITIES: No edema. NEUROLOGIC: Sleepy, arousable, follows simple command. MEDICATIONS: He is on Amaryl 4 mg, 40 mg 3 times a day, Coreg 12.5 mg twice a day, Coumadin is 4 mg that will be given tonight, Cymbalta 30 mg daily, Diamox 250 mg twice a day, doxycycline 100 mg twice a day, folic acid 1 mg daily, insulin coverage, Klonopin 0.25 mg twice a day, digoxin 0.125 mg daily, Lasix 40 mg daily, Lipitor 20 mg daily, Lovaza 2 g q. 12 hours, magnesium oxide 400 mg 3 time s a day, cefepime 1 g q. 8 hours, Nicoderm patch daily, Protonix 40 mg daily, Singulair 10 mg daily, Solu-Medrol 40 mg IV q. 6 hours, Tessalon Perles 100 mg 3 times a day, Ultram 50 mg 3 times a day p.r .n., vitamin B 100 mg daily, Xopenex inhaled q. 12 hours p.r.n. and q. 6 hours around the clock, al lopurinol 100 mg daily. LABORATORY DATA: Shows hemoglobin 14.2, hematocrit 44.0, WBC 28,000, and platelet is 272. INR 1.58. Sodium 139, potassium 4.0, chloride 92, bicarbonate 38, BUN 22, creatinine 0.8, glucose 147, calciu m is 9.6, magnesium 2.0. AST 30, ALT 42, alkaline phosphatase is 72, albumin is 4.1. Procalcitonin 0.12. MICROBIOLOGY: Blood culture has been negative. IMPRESSION AND PLAN: Respiratory failure with CO2 retention and hypoxemia requiring noninvasive vent ilation, chronic obstructive lung disease, atrial fibrillation, may have a sleep apnea syndrome, diab etes, hypertension, a little improved since yesterday. We will continue to encourage BiPAP use at ni ghttime, and daytime if he is sleepy, tired and short of breath. Continue bronchodilator, anti biotics as per infectious diseases. Gastric prophylaxis, anticoagulation. The patient will need out patient sleep study. We will follow with you. Ron Ratliff MD cc: [id number] TT: 12/09/2016 16:43:17 Confirmation # [id number] Dictation # [id number] ln
[2016-12-10] MEDS: MethylPREDNISolone 40 mg Vial IVP SCH ×4 (00:29→18:34)
[2016-12-10] MEDS: Levalbuterol 0.63 MG/3 ML Inhal Soln UD IH SCH ×4 (02:50→19:43)
[2016-12-10] MEDS: Cefepime 1gm in NS 100ml 100 ML IVPB SCH ×2 (05:22→22:00)
[2016-12-10 06:58] LABS: ADD MANUAL DIFF? NO
[2016-12-10 07:11] LABS: INR 1.68 (0.93-1.08)
[2016-12-10 07:15] LABS: BASO # 0.01 K/mm3 (0.0-2.0); GRAN # 22.39 (1.4-6.5); GRAN % 93.4 % (50.0-68.0); HEMATOCRIT 42.2 % (42.0-52.0); LYMPH # 0.8 (1.2-3.4); LYMPH % 3.3 % (22.0-35.0); MEAN CELL VOLUME 96.8 fL (80.0-105.0); MEAN PLATELET VOLUME 10.2 fl (7.0-11.0); MONO # 0.8 (0.1-0.6); MONO % 3.3 % (1.0-6.0); PLATELET COUNT 264 10^3/uL (120.0-450.0); RED CELL DISTRIBUTION WIDTH 15.1 % (11.5-14.5)
[2016-12-10 07:39] LABS: ALKALINE PHOSPHATASE 60 U/L (38-133); ALT/SGPT 38 U/L (7-56); AST/SGOT 31 U/L (15-59); BILIRUBIN,DIRECT 0.7 mg/dL (0.0-0.4); BILIRUBIN,TOTAL 0.7 mg/dL (0.2-1.3); BLOOD UREA NITROGEN 33 mg/dL (7-21); CALCIUM 9.5 mg/dL (8.4-10.5); CARBON DIOXIDE 34 mmol/L (21-33); CHLORIDE 96 mmol/L (98-107); GFR AFRICAN-AMERICAN > 60; GLUCOSE,RANDOM 161 mg/dL (70-110); SODIUM 139 mmol/L (132-148); TOTAL PROTEIN 7.8 g/dL (5.8-8.3)
[2016-12-10 07:51] LABS: POTASSIUM 3.8 mmol/L (3.6-5.0)
--- NOTE | 2016-12-10 08:56 | CON ---
DATE: 12/09/2016 CONSULT SERVICE: Cardiology. REASON FOR CONSULTATION AND FOLLOWUP: Shortness of breath, possible acute exacerbation of chronic ob structive pulmonary disease, paroxysmal atrial fibrillation, nonobstructive coronary artery disease. BRIEF CLINICAL HISTORY: This is a 51-year-old obese male with a past medical history significant for obesity, body mass index 33.7 kg/m2, admitted with cough, shortness of breath on CPAP. Denies any c hest pain, shortness of breath or any palpitations. PAST MEDICAL HISTORY: Significant for alcohol abuse, tobacco abuse, nonischemic cardiomyopathy, paro xysmal atrial fibrillation, status post cardiac catheterization, normal coronaries, morbid obesity, h ypertension, hyperlipidemia. PREVIOUS CARDIAC WORKUP: As follows: The patient had a cardiac catheterization 05/23/2015 that show s nonobstructive coronary artery disease . There is no focal stenosis. Ejection fraction 30%. EDP was in the range of 30. Repeat echo was done that shows 4-chamber dilatation, moderate global h ypokinesis, moderate tricuspid regurgitation, mild mitral regurgitation. When compared from 04/18/20 14 no significant change in echo noted. Last echo as mentioned dated 06/05/2015 shows 4-chamber dila tation, global hypokinesis and moderate TR, mild MR, no changes from before 04/18/2015, history of pa roxysmal atrial fibrillation. SOCIAL HISTORY: Active tobacco abuse, active alcohol abuse. CURRENT MEDICATIONS: The patient is at home taking tramadol, warfarin, prednisone, verapamil, thiami ne, glyburide, gemfibrozil, folic acid, digoxin, carvedilol. REVIEW OF SYSTEMS: As per HPI. PHYSICAL EXAMINATION: VITAL SIGNS: Temperature afebrile, heart rate 70, blood pressure 135/75. HEENT: PERRLA. Extraocular muscles intact. NECK: Supple. No carotid bruits. No thyromegaly. CHEST: Clear to auscultation. HEART: S1, S2 regular. ABDOMEN: Soft. EXTREMITIES: Clubbing and cyanosis negative. LABORATORY DATA: Blood workup as follows: WBC 27.5, hemoglobin , hematocrit 44.0, platelet cou nt 272. Chemistry shows sodium 130, potassium 4, chloride 90, carbon dioxide 38, anion gap of 13, BU N 22, creatinine 0.8. IMPRESSION: Acute exacerbation of chronic obstructive pulmonary disease, obesity, body mass index 35 kg/m2, diabetes, hypertension, hyperlipidemia, noncompliance with medication, active tobacco abuse, active alcohol abuse. He is status post cardiac catheterization, normal coronaries, decreased left v entricular function. Last echo 08/11/2015 shows a decreased 4-chamber dilatation, decreased left blayne tricular function, mild mitral regurgitation, mild tricuspid regurgitation. When compared to previou s, no significant change noted. RECOMMENDATION: Continue aggressive treatment of COPD. Continue diuretics. Continue Coreg. Contin ue Coumadin. Continue carvedilol. Continue digoxin. Antibiotic is started. We will get gentle diu retics. Keep negative fluid balance and monitor electrolytes. Will repeat echo to assess LV functio n. INR is 1.58 today. The patient is 2 mg of Coumadin at home, and verapamil 40. Will try to resume to prevent going into atrial fibrillation with a rapid ventricular rate. Admitting EKG normal sinus an d also an electrocardiogram today dated 12/09/2016, showed normal sinus. We will follow with you. Thank you, Dr. Shell, for providing us the opportunity in taking care of your patient. Ron Lawler MD cc: [id number] TT: 12/09/2016 18:46:38 Confirmation # [id number] Dictation # [id number] ulises
[2016-12-10] MEDS: Pantoprazole 40 mg EC Tab PO SCH (09:31)
[2016-12-10] MEDS: Omega-3-Acid Ethyl Esters 1 GM Cap PO SCH (09:31)
[2016-12-10] MEDS: Magnesium Oxide 400 mg Tab UD PO SCH ×3 (09:33→18:30)
[2016-12-10] MEDS: Insulin Lispro (HUMAlog) HIGH Coverage SC SCH ×4 (09:34→22:44)
[2016-12-10] MEDS: Thiamine 100 mg/ml Inj IV SCH (09:35)
--- NOTE | 2016-12-10 10:00 | CARD ---
APPROVED REPORT EKG Measurement Heart [id number] <Conclusion> Sinus bradycardia Nonspecific intraventricular conduction delay PRWP Leftward axis NSSTW changes No change
--- NOTE | 2016-12-10 11:42 | PN ---
DATE: 12/10/2016 The patient is seen in room 261, bed 1. The patient is sitting up in the bed. The patient stated that he is feeling much better. The patient denies shortness of breath. REVIEW OF SYSTEMS: A 13-system review was done. Pertinent positives and negatives dictated above. Telemetry shows sinus rhythm. The patient is seen sitting up in the bed. The patient is alert, awake, responsive. Telemetry shows sinus rhythm. PHYSICAL EXAMINATION: VITAL SIGNS: T-max is 98.5. Telemetry: Sinus rhythm. Heart rate 60s, 70s, and 80s. Blood pressure 132/60, 131/69, respirations 18, O2 sat 95%. INTAKE/OUTPUT: Output is 600. HEENT: Normocephalic, atraumatic. Shows pink conjunctivae, anicteric sclerae. No oropharyngeal lesion. NECK: No neck rigidity. CHEST: Kyphosis. LUNGS: Show rhonchi, but no wheezing. Decreased breath sounds. CARDIOVASCULAR: Shows S1, S2, regular rhythm. Questionable soft systolic murmur, right second intercostal space, left sternal border. ABDOMEN: Protuberant, obese. GENITALIA: Male. RECTAL: Deferred. EXTREMITIES: Shows no pitting edema, no calf tenderness, no Homans' sign. MUSCULOSKELETAL: Shows a body mass index of greater than 35. NEUROLOGIC: Cranial nerves II-XII intact. GAIT: Not tested. VASCULAR: Palpable pulses. PSYCHIATRIC: Positive for anxiety. DIAGNOSTICS: 12/10, WBC down to 24,000, hemoglobin and hematocrit 13.5 and 42.2 , platelet 264. PT 18.1. Sodium 139, potassium 3.8, chloride 96, CO2 of 34, anion gap 13, BUN 33, creatinine 0.9. GFR greater than 60. Glucose 161, fingerstick blood sugar 192, 173, 147. Magnesium 2.0. LFTs are normal. Microbiology: Blood cultures no growth. Sputum cultures pending. EKG shows sinus rhythm, sinus bradycardia from today, intraventricular conduction delay, left axis deviation. EKG from yesterday shows sinus rhythm, nonspecific intraventricular conduction delay, and left bundle branch block. IMPRESSION AND PLAN: 1. Respiratory insufficiency with respiratory failure with hypercarbia, hypoxemia. 2. Systemic inflammatory response syndrome. 3. Acute exacerbation of chronic obstructive pulmonary disease with bronchospasm and respiratory insufficiency. 4. Hypertension. 5. Morbid obesity with elevated body mass index of greater than 35. 6. Leukocytosis with granulocytosis. 7. Coumadin-dependent atrial fibrillation. 8. Hypercarbic respiratory failure. 9. Metabolic alkalosis. 10. Noninsulin-requiring type 2 diabetes mellitus. 11. History of dyslipidemia. 12. Active nicotine addiction and dependence. 13. Sinus bradycardia with possible and questionable left bundle-branch block versus nonspecific intraventricular conduction delay. 14. Left axis deviation. 15. Sinus bradycardia. 16. Left axis deviation. 17. Questionable left bundle-branch block versus intraventricular conduction delay. 18. History of sleep apnea. 19. Morbid obesity. 20. Possible intention tremors versus anxiety. 21. History of hyperuricemia. 22. History of type 2 diabetes mellitus. 23. History of nicotine and alcohol dependence. 24. History of diabetic neuropathy. 25. Hypomagnesemia. 26. Morbid obesity with deconditioning. 1. Respiratory failure with hypercarbia and hypoxemia. 2. Systemic inflammatory response syndrome. 3. Hypertension. 4. History of Coumadin dependent atrial fibrillation. 5. Leukocytosis with granulocytosis. 6. Coumadin-dependent atrial fibrillation. 7. Hypercarbia. 8. Metabolic alkalosis. 9. Hypomagnesemia. 10. Noninsulin requiring diabetes mellitus. 11. Hypochloremic metabolic alkalosis. 12. Hypomagnesemia. 13. Questionable left axis deviation. 14. Acute exacerbation of chronic obstructive pulmonary disease with bronchospasm and respiratory failure. 15. Morbid obesity with elevated body mass index of 35. 16. Morbid obesity. 17. Hypertension. 18. Leukocytosis with granulocytosis. 19. Diabetic neuropathy. 20. History of systolic congestive heart failure. 21. Hypomagnesemia. 22. History of nicotine and alcohol abuse. 23. History of hyperuricemia. 1. Acute exacerbation of chronic obstructive pulmonary disease with bronchospasm and respiratory insufficiency and Respiratory Failure with hypercarbia.. 2. Leukocytosis with granulocytosis. 3. Coumadin dependent atrial fibrillation. 4. Metabolic alkalosis. 5. Type 2 non-insulin requiring diabetes mellitus. 6. Hypomagnesemia. 7. History of acute on chronic recurrent systolic congestive heart failure. 8. Morbid obesity. 9. Poor compliance. 10. History of systolic congestive heart failure. 11. History of nicotine dependence. 12. History of hyperuricemia. 13. History of Coumadin dependent atrial fibrillation. 14. Hypovitaminosis D. 15. History of dyslipidemia, history of hypomagnesemia, history of constipation. PLAN: 1. At this time, serial labs are ordered. We are awaiting sputum cultures. 2. Consultation cardiology. 3. Infectious disease. 4. Pulmonary. 5. The patient's Lovaza will be discontinued because the patient's triglyceride is very much within normal limits. We will recheck digoxin levels today and daily. CURRENT MEDICATIONS: 1. The patient is on Calan 40 mg 3 times a day. The patient's Coreg is adjusted to 6.25 mg twice a day secondary to bradycardia. The patient is on Coumadin 2 mg daily, Cymbalta 30 mg daily, Diamox 250 mg twice a day, Vibramycin 100 mg IV q. 12. folic acid 1 mg daily, Humalog high-dose sliding scale coverage, Klonopin 0.25 mg twice a day, digoxin 0.125 daily, Lasix 40 mg p.o. daily. 2. Lipitor 20 mg daily, Lovaza 2 g twice a day. 3. Magnesium oxide 400 mg 3 times a day, cefepime 1 g IV q. 8, Nicotine patch 21 mg daily, Protonix 40 mg daily. The patient's Solu-Medrol is decreased to 30 mg IV q. 6. Singulair 10 mg daily, Tessalon Perles 200 mg 3 times a day. 4. Ultram 50 mg 3 times a day. 5. Thiamine 100 mg IV daily, Xopenex nebulizer 0.63 mg q. 6 hours, Zyloprim 100 mg daily, Amaryl 4 mg a.c. breakfast. The patient has been updated about his condition. The patient has been updated about continuation of IV antibiotic, IV steroids. The patient was updated about the recommendation from all physicians involved in the care of the patient. The patient was updated for need to continue IV antibiotics, IV steroids with IV steroid tapering, which the patient acknowledges and understands. Dictated and electronically signed, not read. Cedrick Shell MD cc: [id number] TT: 12/10/2016 11:41:49 Confirmation # [id number] Dictation # [id number] josephine VEGA
--- NOTE | 2016-12-10 13:56 | PN ---
DATE: 12/10/2016 The patient is admitted. The patient is seen earlier in 261, bed 1. No fevers, no chills, no nausea , no vomiting. PHYSICAL EXAMINATION: VITAL SIGNS: Temperature is 97, blood pressure is 140/80, respiratory rate of 18. HEENT: Unremarkable. NECK: Supple. LUNGS: Have decreased breath sounds. HEART: Normal S1, S2. ABDOMEN: Soft, nontender. LABORATORY EXAMINATION: Reveals a white count of 24,000, hemoglobin of 13, platelets of 264. Chemis tries reveals a BUN of 33, creatinine of 0.9. Toxicology is noted. Microbiology reveals the blood c ultures are negative. Urine cultures are pending. Sputum cultures are pending. Review of orders reveals the patient to be on doxycycline IV and the patient is also on cefepime. Th e patient is also on Solu-Medrol. ASSESSMENT AND PLAN: A 51-year-old male with end-stage chronic obstructive pulmonary disease, heavy smoker, systolic congestive heart failure with a reduced ejection fraction of 10%-15%, hypertension, who is with chronic obstructive pulmonary disease and a history of congestive heart failure, ejection fraction is 25%, who was admitted with systemic inflammatory response syndrome with negative blood c ultures. Awaiting for urine and sputum culture currently with a procalcitonin of 0.12 and urinalysis and urine culture will be ordered again. We will also order p.o. doxycycline and discontinue the IV doxycycline and will review the chest x-ray. We will make further recommendations. Sukhjinder Bah MD cc: [id number] TT: 12/10/2016 13:45:54 Confirmation # [id number] Dictation # [id number] en
[2016-12-10] MEDS: Digoxin 125 mcg (0.125 mg) Tab PO SCH (14:31)
[2016-12-10 14:32] VITALS: PULSE 1
--- NOTE | 2016-12-10 15:18 | PN ---
DATE: 12/10/2016 REASON FOR CONSULTATION AND FOLLOWUP: Shortness of breath, acute exacerbation of COPD as well as dec ompensated congestive heart failure, paroxysmal atrial fibrillation, nonobstructive coronary disease. BRIEF CLINICAL HISTORY: This is a 51-year-old obese male with a past medical history significant for obesity, body mass index 33.7 kg/meters squared cough, shortness of breath, COPD exacerbation. Denies any chest pain or palpitation. PHYSICAL EXAMINATION: VITAL SIGNS: Temperature afebrile, heart rate , blood pressure 130/75. HEENT: PERRLA. Extraocular muscles intact. NECK: Supple. No carotid bruit, no thyromegaly. CHEST: Clear to auscultation. HEART: S1, S2 regular. ABDOMEN: Soft. EXTREMITIES: Clubbing, cyanosis negative. BLOOD WORKUP: WBC 24.0, hemoglobin , hematocrit 42.2, platelet count 264. Chemistries show sod ium , potassium 3.7, chloride 86, carbon dioxide 44, anion gap of 11, BUN 19, creatinine 0.8. T roponin 0.02. IMPRESSION: Decompensated congestive heart failure, acute on chronic, secondary to systolic dysfunct ion, obesity, body mass index 35.2 kg per meter squared, chronic obstructive pulmonary disease, obstr uctive sleep apnea, acute exacerbation of chronic obstructive pulmonary disease, diabetes, hypertensi on, hyperlipidemia, paroxysmal atrial fibrillation, noncompliance with medication, alcohol abuse, tob acco abuse in the past. RECOMMENDATION: Aggressive treatment for chronic obstructive pulmonary disease. We will get echo to assess left ventricular function. Continue verapamil. Continue Coreg. Continue anticoagulation. Goal is to keep INR between 2-2.5 and now the INR is subtherapeutic, but is on the way up. As a brid ge, we will use Lovenox. Since the patient is in normal sinus, we will wait until the Coumadin gets to the therapeutic level. We will not give the bridge. We will give 4 mg of Coumadin today again an d 2 mg from tomorrow. We will follow with you. Thank you, Dr. Shell, for providing us the opportunity in taking care of the patient. Ron Lawler MD cc: [facility] TT: 12/10/2016 15:18:24 Confirmation # [id number] Dictation # [id number] en
--- NOTE | 2016-12-10 17:57 | CARD ---
APPROVED REPORT EXAM: Two-dimensional and M-mode echocardiogram with Doppler and color Doppler. INDICATION Cardiomyopathy M-Mode DIMENSIONS Aortic Root2.40 (2.2-3.7cm)Aortic Cusp Exc.1.40 (1.5-2.0cm) Aortic Valve AoV Peak Szysnzwf481.0cm/Whitney Peak GR.8mmHg Mitral Valve E/A ratio0.0 TDI E/Lateral E'0.0E/Medial E'0.0 Pulmonary Valve PV Peak Knjfljdx97.0cm/sPV Peak Grad.1mmHg Tricuspid Valve TR Peak [id number]/sRAP [id number] Peak Gr.12mmHg [id number] LEFT VENTRICLE The Left Ventricle is moderately dilated. There is normal left ventricular wall thickness. The systolic function is severely impaired.EF-15-20% There is normal LV segmental wall motion. Transmitral Doppler flow pattern is Grade II-pseudonormal filling dynamics. No left ventricle thrombus noted on this study. There is no ventricular septal defect visualized. There is no left ventricular aneurysm. There is no mass noted in the left ventricle. RIGHT VENTRICLE The right ventricle is moderately to severely dilated. There is normal right ventricular wall thickness. Systolic function is moderately to severely reduced. ATRIA The left atrium is moderately dilated. The right atrium is moderately dilated. The interatrial septum is intact with no evidence for an atrial septal defect. AORTIC VALVE The aortic valve is thickened but opens well. No aortic regurgitation is present. There is no aortic valvular stenosis. There is no aortic valvular vegetation. MITRAL VALVE The mitral valve is thickened but opens well. Mitral regurgitation is trace to mild. There is no mitral valve stenosis. There is no evidence of mitral valve prolapse. TRICUSPID VALVE The tricuspid valve leaflets are thickened , but open well. There is trace to mild tricuspid regurgitation.RVSP-22 mmof Hg. There is no tricuspid valve stenosis. There is no tricuspid valve prolapse or vegetation. PULMONIC VALVE The pulmonic valve is not well visualized. GREAT VESSELS The aortic root is normal in size. The ascending aorta is normal in size. The pulmonary artery is normal. The IVC is dilated. PERICARDIAL EFFUSION There is no pleural effusion. There is no pericardial effusion. <Conclusion> Four chamber dilatation,C/W CMP. EF-15-20%. Trace to Mild MR/TR.RVSP-22 mmof Hg. TDS: Suggest MUGA Scan.
[2016-12-10 19:55] LABS: URINE BILIRUBIN NEGATIVE (NEGATIVE); URINE BLOOD NEGATIVE (NEGATIVE); URINE GLUCOSE (UA) NEGATIVE (NEGATIVE); URINE KETONE NEGATIVE (NEGATIVE); URINE LEUKOCYTE ESTERASE NEGATIVE Leu/uL (NEGATIVE); URINE PROTEIN NEGATIVE mg/dL (<30 mg/dL); URINE UROBILINOGEN 0.2 E.U./dL (<1 E.U./dL)
[2016-12-10 20:00] LABS: URINE APPEARANCE CLEAR (CLEAR); URINE COLOR YELLOW (YELLOW)
--- NOTE | 2016-12-10 20:24 | PN ---
DATE: 12/10/2016 REFERRING PHYSICIAN: Dr. Shell. SUBJECTIVE: The patient is seen and examined in echo room. Night was unremarkable. Tolerated BiPAP well. Still having cough and shortness of breath, audible wheezing, but overall feels better. No n ausea, no vomiting or diarrhea. No leg pain or leg swelling. OBJECTIVE: GENERAL: No acute distress. VITAL SIGNS: Temperature is 98, heart rate is 58, respiratory rate is 20, blood pressure 146/94, pul se ox 96% on nasal cannula. HEENT: Moist mucous membrane. Small oral cavity. Crowded airway. NECK: Short, thick neck. LUNGS: Bilateral expiratory wheezing. HEART: S1, S2. ABDOMEN: Soft, nontender. No organomegaly. EXTREMITIES: There is not much edema. NEUROLOGIC: Awake, alert, follows simple commands. MEDICATIONS: He is on Amaryl 4 mg ACB, Calan 40 mg 3 times a day, Coreg 6.25 mg twice a day, Coumadi n 2 mg daily basis has been given, Cymbalta 30 mg daily, Diamox 250 mg twice a day, doxycycline 100 m g twice a day, folic acid 1 mg daily, insulin coverage, Klonopin 0.25 mg twice a day, digoxin 0.125 m g daily, Lasix 40 mg daily, Lipitor 20 mg daily, mag oxide 400 mg twice a day, cefepime 1 g IV q. 8 h ours, Nicoderm patch daily, Protonix 40 mg daily, Singulair 10 mg daily, Solu-Medrol 30 mg q. 6 hours , Tessalon Perles 100 mg 3 times a day, Ultram 50 mg 3 times a day, vitamin B 100 mg IV daily, Xopene x inhaled q. 2 hours p.r.n. and q. 6 hours around the clock. LABORATORY DATA: Shows hemoglobin 13.5, hematocrit 42.2, WBC 24,000, platelet is 264. INR 1.68. So dium 139, potassium 3.8, chloride 96, bicarbonate 34, BUN 33, creatinine 0.9, glucose 161, calcium is 9.5, magnesium 2.0. AST 31, ALT 38, alkaline phosphatase is 60, albumin is 3.8. MICROBIOLOGY: Blood culture and sputum culture: There is no growth. IMPRESSION AND PLAN: Respiratory failure with carbon dioxide retention and hypoxemic requiring nonin vasive ventilation, chronic obstructive lung disease, atrial fibrillation, pulmonary hypertension, hi story of cor pulmonale, diabetes, hypertension. Will continue BiPAP while sleeping and while short o f breath. IV and inhaled bronchodilator. Gastric prophylaxis. DVT prophylaxis. Anticoagulation. Diuretics. Follow up labs in the morning. Thank you, and will follow with you. Ron Ratliff MD cc: [id number] TT: 12/10/2016 20:23:15 Confirmation # [id number] Dictation # [id number] mn
[2016-12-11] MEDS: MethylPREDNISolone 40 mg Vial IVP SCH ×2 (00:37→07:14)
[2016-12-11] MEDS: Levalbuterol 0.63 MG/3 ML Inhal Soln UD IH SCH ×2 (01:45→08:35)
[2016-12-11] MEDS: Cefepime 1gm in NS 100ml 100 ML IVPB SCH (05:21)
[2016-12-11 08:00] LABS: INR 2.92 (0.93-1.08)
[2016-12-11 08:03] LABS: BASO # 0.01 K/mm3 (0.0-2.0); GRAN % 94.3 % (50.0-68.0); HEMATOCRIT 43.3 % (42.0-52.0); LYMPH # 0.6 (1.2-3.4); LYMPH % 2.7 % (22.0-35.0); MEAN CELL VOLUME 96.4 fL (80.0-105.0); MEAN CORPUSCULAR HEMOGLOBIN 31.2 pg (25.0-35.0); MEAN CORPUSCULAR HGB CONC 32.3 g/dl (31.0-37.0); MEAN PLATELET VOLUME 10.2 fl (7.0-11.0); MONO # 0.7 (0.1-0.6); PLATELET COUNT 280 10^3/uL (120.0-450.0); RED CELL DISTRIBUTION WIDTH 15.2 % (11.5-14.5); WHITE BLOOD COUNT 21.7 10^3/ul (4.5-11.0)
[2016-12-11 08:05] LABS: ADD MANUAL DIFF? NO
[2016-12-11 08:23] LABS: ALKALINE PHOSPHATASE 65 U/L (38-133); ALT/SGPT 36 U/L (7-56); AST/SGOT 31 U/L (15-59); BILIRUBIN,DIRECT 0.5 mg/dL (0.0-0.4); BILIRUBIN,TOTAL 0.5 mg/dL (0.2-1.3); BLOOD UREA NITROGEN 34 mg/dL (7-21); CALCIUM 9.5 mg/dL (8.4-10.5); CARBON DIOXIDE 35 mmol/L (21-33); CHLORIDE 95 mmol/L (98-107); GFR AFRICAN-AMERICAN > 60; GLUCOSE,RANDOM 175 mg/dL (70-110); MAGNESIUM 1.9 mg/dL (1.7-2.2); SODIUM 139 mmol/L (132-148); TOTAL PROTEIN 7.9 g/dL (5.8-8.3)
[2016-12-11] MEDS: Insulin Lispro (HUMAlog) HIGH Coverage SC SCH (08:25)
--- NOTE | 2016-12-11 09:43 | CARD ---
APPROVED REPORT EKG Measurement Heart [id number] <Conclusion> Sinus rhythm with marked sinus arrhythmia PRWP LAD IVCD STTW changes c/w ischemia
[2016-12-11 09:57] VITALS: BP 120/75; PULSE 80; RESP 18; TEMP 96.5; O2SAT 95
[2016-12-11] MEDS: Magnesium Oxide 400 mg Tab UD PO SCH (10:13)
[2016-12-11] MEDS: Pantoprazole 40 mg EC Tab PO SCH (10:14)
[2016-12-11] MEDS: Thiamine 100 mg/ml Inj IV SCH (10:14)
--- NOTE | 2016-12-11 11:34 | DS ---
The patient signed out against medical advice on 12/11. The patient was seen in room 375, bed 2. The patient was found walking around on the floor. According to the patient's nurses on the floor, the patient was found to be smoking in the bathroom. The patient wants to be discharged today, but I told the patient that he is not medically ready for discharge because of his cardiopulmonary status. The patient...According to the patient's nurse, Cindy, the patient was found last night smoking in the bathroom. I have counseled the patient against smoking in the healthcare facility, and the patient is requesting to be discharged to go home because he is feeling good. The patient signed out against medical advice. AMA form...AMA prerequisite and were...and forms were completed; witnessed by me...the patient...and completed by me. The patient and the nurse witnessed. VITAL SIGNS: T-max 96...97.8, pulse 80, blood 127/75...120/75, respirations 18 , O2 sat 95%. O2 sat 95%. Intake/output...Output is 750 mL. HEAD EXAMINATION: Normocephalic, atraumatic. HENT EXAMINATION: Shows pink conjunctivae, anicteric sclerae. No oropharyngeal lesion. No neck rigidity. CHEST EXAMINATION: Kyphosis. LUNG EXAMINATION: Shows occasional wheezing, positive rhonchi, decreased breath sounds, decreased air entry bilaterally. CARDIOVASCULAR EXAMINATION: S1, S2, regular rhythm. Positive systolic murmur right 2nd intercostal space, left sternal border, left second intercostal space. ABDOMEN: Morbidly obese, protuberant. GENITALIA: Male. RECTAL EXAMINATION: Deferred. EXTREMITIES: Shows no pitting edema, no calf tenderness, no Homans' sign. NEUROLOGICALLY: The patient is alert, awake, oriented x 3. Cranial nerves II- XII intact. MUSCULOSKELETAL EXAMINATION: Shows a body mass index of greater than 35. PSYCHIATRIC EXAMINATION: Negative for anxiety, negative for depression. Negative for auditory or visual hallucination. Negative for suicidal or homicidal ideation. DIAGNOSTICS 12/11: WBC count is down to 21,700, hemoglobin and hematocrit 14 and 43, platelet 280. Granulocytes 94%. PT is 31.5, INR 2.9. Sodium 139, potassium 4.0, chloride 95, CO2 of 35, anion gap 13, BUN 34, creatinine 1.0, GFR greater than 60, glucose 175. Point of contact glucose 243, 245, 239, 161. Uric acid 6.0. LFTs are normal. Digoxin level 0.6. Urine drug screen negative. BLOOD AND SPUTUM CULTURES: Blood cultures no growth. Sputum cultures pending. The patient's EKG from today shows normal sinus rhythm with PACs, left axis deviation, questionable left bundle branch block versus intraventricular conduction delay with...with ST-T changes. FINAL IMPRESSION, PLAN, AND DISCHARGE DIAGNOSES: FINAL IMPRESSION, PLAN, AND DISCHARGE DIAGNOSES: 1. Hypercarbic respiratory failure with CO2 retention and hypercarbia. 2. Acute exacerbation of chronic obstructive pulmonary disease. 3. Active nicotine addiction. 4. Atrial fibrillation. 5. Episodic transient bradycardia. 6. Hypertension. 7. Noncompliance. 8. Morbid obesity with elevated body mass index of 35. 9. Leukocytosis with granulocytosis. 10. Coumadin-dependent atrial fibrillation. 11. Metabolic alkalosis. 12. Noninsulin requiring type 2 diabetes mellitus. 13. Left axis deviation. 14. Possible incomplete left bundle branch block versus intraventricular conduction delay. 15. Dilated cardiomyopathy with left ventricular ejection fraction of 15-20%. 16. Severely impaired left ventricular systolic function with ejection fraction of 15-20%. 17. Severely dilated right ventricle with severely reduced right ventricular systolic function. 18. Moderately dilated left atrium and moderately dilated right atrium. 19. Thickened aortic valve. 20. Thickened mitral valve with mild mitral regurgitation. 21. Mild tricuspid regurgitation. 22. Severe cardiomyopathy with ejection fraction of 15-20%. 23. Poor compliance. 24. Active nicotine addiction and dependence. 25. Decompensated systolic congestive heart failure and acute on chronic systolic heart failure. 26. History of obstructive sleep apnea. 27. Type 2 non-insulin requiring diabetes mellitus. 28. Diabetic neuropathy. 29. Questionable essential versus intention tremors of the upper extremity ( resolved). 30. Dyslipidemia. 31. Hypomagnesemia. 32. Bronchospasm. 33. Hyperuricemia. 34. Nicotine withdrawal. 1. Respiratory insufficiency with respiratory failure with hypercarbia, hypoxemia. 2. Systemic inflammatory response syndrome. 3. Acute exacerbation of chronic obstructive pulmonary disease with bronchospasm and respiratory insufficiency. 4. Hypertension. 5. Morbid obesity with elevated body mass index of greater than 35. 6. Leukocytosis with granulocytosis. 7. Coumadin-dependent atrial fibrillation. 8. Hypercarbic respiratory failure. 9. Metabolic alkalosis. 10. Noninsulin-requiring type 2 diabetes mellitus. 11. History of dyslipidemia. 12. Active nicotine addiction and dependence. 13. Sinus bradycardia with possible and questionable left bundle-branch block versus nonspecific intraventricular conduction delay. 14. Left axis deviation. 15. Sinus bradycardia. 16. Left axis deviation. 17. Questionable left bundle-branch block versus intraventricular conduction delay. 18. History of sleep apnea. 19. Morbid obesity. 20. Possible intention tremors versus anxiety. 21. History of hyperuricemia. 22. History of type 2 diabetes mellitus. 23. History of nicotine and alcohol dependence. 24. History of diabetic neuropathy. 25. Hypomagnesemia. 26. Morbid obesity with deconditioning. 1. Respiratory failure with hypercarbia and hypoxemia. 2. Systemic inflammatory response syndrome. 3. Hypertension. 4. History of Coumadin dependent atrial fibrillation. 5. Leukocytosis with granulocytosis. 6. Coumadin-dependent atrial fibrillation. 7. Hypercarbia. 8. Metabolic alkalosis. 9. Hypomagnesemia. 10. Noninsulin requiring diabetes mellitus. 11. Hypochloremic metabolic alkalosis. 12. Hypomagnesemia. 13. Questionable left axis deviation. 14. Acute exacerbation of chronic obstructive pulmonary disease with bronchospasm and respiratory failure. 15. Morbid obesity with elevated body mass index of 35. 16. Morbid obesity. 17. Hypertension. 18. Leukocytosis with granulocytosis. 19. Diabetic neuropathy. 20. History of systolic congestive heart failure. 21. Hypomagnesemia. 22. History of nicotine and alcohol abuse. 23. History of hyperuricemia. 1. Acute exacerbation of chronic obstructive pulmonary disease with bronchospasm and respiratory insufficiency and Respiratory Failure with hypercarbia.. 2. Leukocytosis with granulocytosis. 3. Coumadin dependent atrial fibrillation. 4. Metabolic alkalosis. 5. Type 2 non-insulin requiring diabetes mellitus. 6. Hypomagnesemia. 7. History of acute on chronic recurrent systolic congestive heart failure. 8. Morbid obesity. 9. Poor compliance. 10. History of systolic congestive heart failure. 11. History of nicotine dependence. 12. History of hyperuricemia. 13. History of Coumadin dependent atrial fibrillation. 14. Hypovitaminosis D. 15. History of dyslipidemia, history of hypomagnesemia, history of constipation. THE PATIENT'S CURRENT MEDICATIONS ARE: 1. Amaryl 4 mg once a day. 2. Verapamil or Calan 40 mg 3 times a day. 3. Coreg is decreased to 6.25 twice a day. 4. Coumadin 2 mg daily. 5. Cymbalta 30 mg daily. 6. Diamox 250 mg twice a day. 7. Doxycycline 100 mg p.o. q. 12. 8. Folic acid 1 mg daily. 9. Humalog high dose sliding scale coverage a.c. and at bedtime. 10. Klonopin 0.25 mg twice a day. 11. Digoxin 0.125 mg daily. 12. Lasix 40 mg p.o. daily. 13. Lipitor 20 mg daily. 14. Magnesium oxide 400 mg 3 times a day. 15. Cefepime 1 g IV q. 8. 16. Nicotine patch 21 mg daily. 17. Protonix 40 mg daily. 18. Singulair 10 mg at bedtime. 19. Solu-Medrol 30 mg IV q. 6. 20. Tessalon Perles 200 mg...100 mg 3 times a day. 21. Tramadol 50 mg t.i.d. p.r.n. 22. Thiamine 100 mg p.o. or IV daily. 23. Xopenex nebulizer 0.63 mg q. 2 hours p.r.n. and q. 6 hours around the clock. 24. Allopurinol 100 mg daily. The patient has signed out against medical advice. The patient is advised to follow up in the office as soon as possible at his convenience. The patient is advised to resume all medications...home medications at home, including the nebulizer medications and p.o. prednisone, and the patient was advised to contact the office for antibiotic prescription. The patient was also counseled about cessation of smoking. The patient was also counseled about compliance with diet, medications, activity, weight loss. TIME SPENT IN THE ENTIRE PROCESS AND COMPLETING THE AMA FORMALITIES: More than 45 minutes. Dictated and electronically signed, not read. Dictated and electronically signed, not read. Cedrick Shell MD cc: [id number] TT: 12/11/2016 11:33:21 [email or web address] VEGA
--- NOTE | 2016-12-11 13:09 | PN ---
DATE: 12/11/2016 REASON FOR CONSULTATION AND FOLLOWUP: Shortness of breath, acute exacerbation of COPD, decompensated congestive heart failure, acute on chronic systolic dysfunction, paroxysmal atrial fibrillation, non obstructive coronary artery disease. BRIEF CLINICAL HISTORY: This is a 51-year-old male with past medical history significant for morbid obesity, increased body mass 33.7 kg/m2, admitted with cough, COPD exacerbation. The patient was lance ated with noninvasive ventilator, improved. The patient underwent echocardiogram that shows signific antly decreased LV function. PHYSICAL EXAMINATION: VITAL SIGNS: Temperature afebrile, heart rate 80, blood pressure 120/75. HEENT: PERRLA. Extraocular muscles intact. NECK: Supple. No carotid bruits. No thyromegaly. CHEST: Clear to auscultation. HEART: S1, S2 regular. ABDOMEN: Soft. EXTREMITIES: Clubbing and cyanosis negative. LABORATORY DATA: WBC 21.7, hemoglobin 14, hematocrit 43.3, platelet count 280. Chemistry shows sodi um 130, potassium 4, chloride 95, carbon dioxide 35, anion gap of 13, BUN 34, creatinine 1.0. The patient underwent echocardiography yesterday that revealed significantly decreased LV function, e jection fraction 15-20%, 4-chamber dilatation, trace to mild mitral regurgitation, trace to mild tric uspid regurgitation, RV systolic pressure of 22. Suggest a MUGA scan. IMPRESSION: Decompensated congestive heart failure, acute on chronic, secondary to systolic dysfunct ion; 4-chamber dilatation, trace to mild mitral regurgitation, trace to mild tricuspid regurgitation, morbid obesity, chronic obstructive pulmonary disease, pulmonary disease, status post nonobstructive coronary artery disease, noncompliance with medication. RECOMMENDATION: Aggressive medical treatment for chronic COPD. Suggest a MUGA scan to assess LV fun ction. Continue Coumadin. Goal is to keep INR between 2 to 2.5 for paroxysmal atrial fibrillation. Continue atorvastatin. Continue diuretic. Continue Coreg. Digoxin 0.125 mg. Will follow with you . Continue verapamil 40 mg 3 times a day to keep him from going into AFib. Continue diuretics. Thank you, Dr. Shell, for providing this opportunity in taking care of the patient. Will follow with you. Ron Lawler MD cc: [id number] TT: 12/11/2016 13:08:27 Confirmation # [id number] Dictation # [id number] mn
--- NOTE | 2016-12-11 13:25 | PN ---
DATE: 12/11/2016 The patient seen earlier this morning in room 375, bed 2. No fevers, no chills. No nausea, no vomit ing. PHYSICAL EXAMINATION: VITAL SIGNS: Temperature is 96, blood pressure is 120/70, respiratory rate 16. HEENT: Unremarkable. NECK: Supple. LUNGS: Decreased breath sounds. HEART: Normal S1, S2. ABDOMEN: Soft, nontender. LABORATORY EXAMINATION: Reveals a white count of 21,000; hemoglobin of 14, platelets of 280. Chemis tries reveal the BUN of 34, creatinine of 1.0 and procalcitonin of 0.12. Urinalysis is noted. Micro biology is noted. Blood cultures are negative. Sputum cultures are normal christopher. ASSESSMENT AND PLAN: A 51-year-old male seen earlier this morning with end-stage chronic obstructive lung disease, heavy smoker, systolic congestive heart failure, reduced ejection fraction, hypertensi on with chronic obstructive lung disease, history of congestive heart failure, ejection of 25%, admit nasir with systemic inflammatory response syndrome with cultures negative, normal procalcitonin and com plete with p.o. doxycycline. The patient requesting to be discharged today. Sukhjinder Bah MD cc: [id number] TT: 12/11/2016 13:25:08 Confirmation # [id number] Dictation # [id number]
== END 2016-12-11 10:28 | disposition left against medical advice (07) | DRG 541 ==
LOC: ED 10:55 → ERH 12:04 → 2RNO 14:49 → OBSVTOIN 12-09 09:00 → 3RSO 12-10 13:56
PROVIDERS: ADMIT Internal Medicine; ATTEND Internal Medicine
PROC: 5A09457 Assistance with Respiratory Ventilation, 24-96 Consecutive Hours, Continuous Positive Airway Pressure (ICD-10-PCS; principal; 2016-12-08)
DX: J44.1 Chronic obstructive pulmonary disease with (acute) exacerbation (principal); J96.91 Respiratory failure, unspecified with hypoxia; R65.10 Systemic inflammatory response syndrome (SIRS) of non-infectious origin without acute organ dysfunction; I50.23 Acute on chronic systolic (congestive) heart failure; I11.0 Hypertensive heart disease with heart failure; E87.4 Mixed disorder of acid-base balance; I42.0 Dilated cardiomyopathy; E11.40 Type 2 diabetes mellitus with diabetic neuropathy, unspecified; I08.1 Rheumatic disorders of both mitral and tricuspid valves; F17.203 Nicotine dependence unspecified, with withdrawal; E83.42 Hypomagnesemia; I48.0 Paroxysmal atrial fibrillation; I44.7 Left bundle-branch block, unspecified; G47.33 Obstructive sleep apnea (adult) (pediatric); E78.5 Hyperlipidemia, unspecified; E66.01 Morbid (severe) obesity due to excess calories; E55.9 Vitamin D deficiency, unspecified; K59.00 Constipation, unspecified; I25.10 Atherosclerotic heart disease of native coronary artery without angina pectoris; Z99.81 Dependence on supplemental oxygen; Z91.14 Patient's other noncompliance with medication regimen; Z68.35 Body mass index [BMI] 35.0-35.9, adult; Z91.19 Patient's noncompliance with other medical treatment and regimen; Z79.84 Long term (current) use of oral hypoglycemic drugs; Z79.52 Long term (current) use of systemic steroids; Z79.01 Long term (current) use of anticoagulants

== ENCOUNTER 2017-02-21 13:40 | Emergency (ER) | payer OTHER ==
[2017-02-21 13:41] VITALS: PULSE 1; BMI 34.4
[2017-02-21 14:26] VITALS: TEMP 98.9
--- NOTE | 2017-02-21 15:24 | ED PDOC ---
Arrival/HPI - General Chief Complaint: Abnormal Labs Time Seen by Provider: 02/21/17 14:42 Historian: Patient - History of Present Illness Narrative History of Present Illness (Text): 02/21/17 14:46 A 51 year old male, whose past medical history includes coronary artery disease , diabetes mellitus, hypertension, congestive heart failure and on Coumadin, who presents to the emergency department for evaluation of abnormal lab work. Patient PMD suggested patient come to the emergency department for further evaluation of an elevated INR count. Patient is asymptomatic and denies bloody stool, bloody urine, or any other symptoms at this time. PMD: Dr. Shell Time/Duration: Prior to Arrival Symptom Onset: Other Symptom Course: Unchanged Activities at Onset: Rest Context: Home Past Medical History - Provider Review Nursing Documentation Reviewed: Yes - Past History Past History: No Previous - Infectious Disease Hx of Infectious Diseases: None - Tetanus Immunization Tetanus Immunization: Unknown - Past Medical History Past Medical History: No Previous - Cardiac Hx Cardiac Arrhythmia: Yes (a fib) Hx Congestive Heart Failure: Yes Hx Hypertension: Yes - Pulmonary Hx Respiratory Disorders: Yes (SOB [id number]/15) Hx Bronchitis: Yes Hx Chronic Obstructive Pulmonary Disease (COPD): Yes Hx Pneumonia: Yes Hx Sleep Apnea: Yes - Neurological HX Cerebrovascular Accident: No - HEENT Hx HEENT Disorder: No Hx Blind: No Hx Cataracts: No Hx Deafness: No Hx Difficulty Chewing: No Hx Epistaxis: No Hx Glaucoma: No Hx Macular Degeneration: No - Renal Hx Renal Failure: No - Endocrine/Metabolic Hx Diabetes Mellitus Type 2: Yes - Hematological/Oncological Hx Unexplained Bleeding: No - Integumentary Other/Comment: multiple skin discolorations to ble - Musculoskeletal/Rheumatological Hx Falls: No - Gastrointestinal Hx Gastrointestinal Disorders: Yes (obese) Other/Comment: umbilical hernia repair - Genitourinary/Gynecological Hx Hematuria: Yes Hx Urinary Tract Infection: Yes - Psychiatric Hx Anxiety: Yes Hx Substance Use: No - Surgical History Other/Comment: umbilical hernia sx - Anesthesia Hx Anesthesia Reactions: No Hx Malignant Hyperthermia: No - Suicidal Assessment Feels Threatened In Home Enviroment: No Family/Social History - Physician Review Nursing Documentation Reviewed: Yes Family/Social History: Unknown Family HX Smoking Status: Heavy Smoker > 10 Cigarettes Daily Hx Alcohol Use: No Amount per day: 2 Hx Substance Use: No Hx Substance Use Treatment: No Allergies/Home Meds Allergies/Adverse Reactions: Allergies cat dander Allergy (Uncoded 12/08/16 11:01) SHORTNESS OF BREATH Home Medications: Home Meds Medication Instructions Recorded Confirmed Allopurinol [Zyloprim] 300 mg PO DAILY 01/01/16 02/21/17 Benzonatate 100 mg PO TID PRN 01/01/16 02/21/17 Furosemide [Lasix] 40 mg PO TID 01/01/16 02/21/17 Albuterol HFA [Ventolin HFA 90 2 puff IH [id number] PRN 02/14/16 02/21/17 mcg/actuation (8 g)] Albuterol 0.083% [Albuterol 1 vial IH QID 12/08/16 02/21/17 Sulfate 3 Ml] Cholecalciferol (Vitamin D3) 2,000 unit PO DAILY 12/08/16 02/21/17 [Vitamin D3] Gemfibrozil [Lopid] 600 mg PO BID 12/08/16 02/21/17 Magnesium Oxide [Magox 400] 2 tab PO BID 12/08/16 02/21/17 Umeclidinium Brm/Vilanterol Tr 1 puff IH DAILY 12/08/16 02/21/17 [Anoro Ellipta] predniSONE [Prednisone] 10 mg PO DAILY 12/08/16 02/21/17 Review of Systems - Physician Review All systems were reviewed & negative as marked: Yes - Review of Systems Constitutional: absent: Fevers Respiratory: absent: SOB Cardiovascular: absent: Chest Pain Gastrointestinal: absent: Other (Bloody stool) Genitourinary Male: absent: Other (urine in blood ) Physical Exam Vital Signs Reviewed: Yes Vital Signs Temp Pulse Resp BP Pulse Ox 02/21/17 16:41 63 18 108/63 99 02/21/17 14:20 98.9 F 66 21 112/63 91 L Temperature: Afebrile Blood Pressure: Normal Pulse: Regular Respiratory Rate: Normal Appearance: Positive for: Well-Appearing, Non-Toxic, Comfortable Pain Distress: None Mental Status: Positive for: Alert and Oriented X 3 - Systems Exam Head: Present: Atraumatic, Normocephalic Pupils: Present: PERRL Extroacular Muscles: Present: EOMI Conjunctiva: Present: Normal Mouth: Present: Moist Mucous Membranes Neck: Present: Normal Range of Motion Respiratory/Chest: Present: Clear to Auscultation, Good Air Exchange. No: Respiratory Distress, Accessory Muscle Use Cardiovascular: Present: Regular Rate and Rhythm, Normal S1, S2. No: Murmurs Abdomen: Present: Normal Bowel Sounds. No: Tenderness, Distention, Peritoneal Signs Upper Extremity: Present: Normal Inspection. No: Cyanosis, Edema Lower Extremity: Present: Normal Inspection. No: Edema Neurological: Present: GCS=15, CN II-XII Intact, Speech Normal, Motor Func Grossly Intact, Normal Sensory Function Skin: Present: Warm, Dry, Normal Color. No: Rashes Psychiatric: Present: Alert, Oriented x 3, Normal Insight, Normal Concentration Medical Decision Making ED Course and Treatment: 02/21/17 14:46 Impression: A 51 year old male with elevated INR. Differential Diagnosis included but are not limited to: elevated INR r/o Coumadin toxicity vs. lab error Plan: -- Labs -- Reassess and disposition Prior Visits: Notes and results from previous visits were reviewed. Patient was last seen in the Emergency department on 12/08/16 for fever/chills/ cough and was admitted to the hospital. Progress Notes: INR at 5. Dr. Shell notified. We agree to discontinue coumadin for 2 days and he will f/u with Dr. Shell for repeat INR. Patient denies any bleeding. No headache or any other concern on reevaluation. 02/21/17 16:36 On re-evaluation, the patient feels better and is in no acute distress. 99% on NC which he uses at home. 95% on RA. I have discussed the results and plan with the patient, who expresses understanding. Patient in agreement with plan to discharged home. Patient is stable for discharge. Patient was instructed to follow up with physician/clinic in 1-2 days or return if symptoms worsen or new concerning symptoms arise. - Lab Interpretations Lab Results: Lab Results 02/21/17 15:15: PT 59.6 H*, INR 5.52 H*, APTT 56.5 H I have reviewed the lab results: Yes - Scribe Statement The provider has reviewed the documentation as recorded by the Elishaibe Valdo Simmons Provider Scribe Attestation: All medical record entries made by the Scribe were at my direction and personally dictated by me. I have reviewed the chart and agree that the record accurately reflects my personal performance of the history, physical exam, medical decision making, and the department course for this patient. I have also personally directed, reviewed, and agree with the discharge instructions and disposition. Disposition/Present on Arrival - Present on Arrival Any Indicators Present on Arrival: No History of DVT/PE: No History of Uncontrolled Diabetes: No Urinary Catheter: No History of Decub. Ulcer: No History Surgical Site Infection Following: None - Disposition Have Diagnosis and Disposition been Completed?: Yes Diagnosis: Elevated INR Disposition: HOME/ ROUTINE Disposition Time: 16:36 Patient Plan: Discharge Condition: IMPROVED Discharge Instructions (ExitCare): Elevated INR (ED) Additional Instructions: Mr Vargas, thank you for letting us take care of you today. Your provider was Dr. Ramirez You were treated for Elevated INR. The emergency medical care you received today was directed at your acute symptoms. If you were prescribed any medication, please fill it and take as directed. It may take several days for your symptoms to resolve. Return to the Emergency Department if your symptoms worsen, do not improve, or if you have any other problems. Please contact your doctor or call one of the physicians/clinics you have been referred to that are listed on the Patient Visit Information form that is included in your discharge packet. Bring any paperwork you were given at discharge with you along with any medications you are taking to your follow up visit. Our treatment cannot replace ongoing medical care by a primary care provider (PCP) outside of the emergency department. Please stop taking coumadin for 2 days and follow up with Dr. Shell. Thank you for allowing the [facility] team to be part of your care today. If you had an X-Ray or CT scan: A Radiologist will review the ED reading if any change in treatment is needed we will contact you. If you had a blood, urine, or wound culture: It will take several days for the results, if any change in treatment is needed we will contact you. If you had an STI test: It will take 48 hours for the results. Please call after 1 week if you have not heard back. Referrals: Cedrick Shell MD [Primary Care Provider] - Follow up with primary Forms: [employer] (Slovenian)
[2017-02-21 15:57] LABS: PARTIAL THROMBOPLASTIN TIME 56.5 Seconds (23.7-30.8)
[2017-02-21 16:07] LABS: INR 5.52 (0.93-1.08)
[2017-02-21 16:41] VITALS: BP 108/63; PULSE 63; RESP 18; O2SAT 99
== END 2017-02-21 16:42 | disposition home or self-care (01) ==
LOC: ED 13:40
DX: R79.1 Abnormal coagulation profile (principal); I50.9 Heart failure, unspecified; Z79.01 Long term (current) use of anticoagulants; E11.9 Type 2 diabetes mellitus without complications; I10 Essential (primary) hypertension

== ENCOUNTER 2017-07-12 03:28 | Inpatient (IN) | payer OTHER ==
[2017-07-12] MEDS ORDERED: Succinylcholine 200 mg/10 ml Inj IV ONE (03:35)
[2017-07-12] MEDS ORDERED: Etomidate 20 mg/10ml Inj IVP STA (03:35)
[2017-07-12] MEDS ORDERED: Propofol 10 mg/ml 1,000 MG/100 ML VIAL IV PRN ×2 (03:50→05:34)
--- NOTE | 2017-07-12 03:52 | ED PDOC ---
Arrival/HPI - General Chief Complaint: Respiratory Distress Time Seen by Provider: 07/12/17 03:45 Historian: Patient - Critical Care Critical Care Minutes: 30 minutes - History of Present Illness Narrative History of Present Illness (Text): 07/12/17 03:45 Ross Vargas is a 52 year old male, whose past medical history includes COPD, CHF, A Fib (on coumadin), diabetes, and morbid obesity, who presents to the emergency department in respiratory distress which began prior to arrival. According to EMS, Patient called for severe difficulty breathing. Upon arrival , patient was speaking in full sentences. En route to the emergency department, patient continued to have difficulty breathing with low saturations and started speaking less. In Emergency department, patient is in acute respiratory distress , appears to be tiring out and is no longer verbal. PMD: Dr. Shell Time/Duration: Prior to Arrival Symptom Course: Unchanged Activities at Onset: Light Context: Home Past Medical History - Provider Review Nursing Documentation Reviewed: Yes - Past History Past History: No Previous - Infectious Disease Hx of Infectious Diseases: None - Tetanus Immunization Tetanus Immunization: Unknown - Past Medical History Past Medical History: No Previous - Cardiac Hx Cardiac Arrhythmia: Yes (a fib) Hx Congestive Heart Failure: Yes Hx Hypertension: Yes - Pulmonary Hx Respiratory Disorders: Yes (SOB [id number]) Hx Bronchitis: Yes Hx Chronic Obstructive Pulmonary Disease (COPD): Yes Hx Pneumonia: Yes Hx Sleep Apnea: Yes - Neurological HX Cerebrovascular Accident: No - HEENT Hx HEENT Disorder: No Hx Blind: No Hx Cataracts: No Hx Deafness: No Hx Difficulty Chewing: No Hx Epistaxis: No Hx Glaucoma: No Hx Macular Degeneration: No - Renal Hx Renal Failure: No - Endocrine/Metabolic Hx Diabetes Mellitus Type 2: Yes - Hematological/Oncological Hx Unexplained Bleeding: No - Integumentary Other/Comment: multiple skin discolorations to ble - Musculoskeletal/Rheumatological Hx Falls: No - Gastrointestinal Hx Gastrointestinal Disorders: Yes (obese) Other/Comment: umbilical hernia repair - Genitourinary/Gynecological Hx Hematuria: Yes Hx Urinary Tract Infection: Yes - Psychiatric Hx Anxiety: Yes Hx Substance Use: No - Surgical History Other/Comment: umbilical hernia sx - Anesthesia Hx Anesthesia Reactions: No Hx Malignant Hyperthermia: No - Suicidal Assessment Feels Threatened In Home Enviroment: No Family/Social History - Physician Review Nursing Documentation Reviewed: Yes Family/Social History: No Known Family HX Smoking Status: Heavy Smoker > 10 Cigarettes Daily Hx Alcohol Use: No Amount per day: 2 Hx Substance Use: No Hx Substance Use Treatment: No Allergies/Home Meds Allergies/Adverse Reactions: Allergies cat dander Allergy (Uncoded 07/12/17 04:25) SHORTNESS OF BREATH Home Medications: Home Meds Medication Instructions Recorded Confirmed Allopurinol [Zyloprim] 300 mg PO DAILY 01/01/16 07/12/17 Furosemide [Lasix] 40 mg PO TID 01/01/16 07/12/17 Albuterol HFA [Ventolin HFA 90 2 puff IH [id number] PRN 02/14/16 07/12/17 mcg/actuation (8 g)] Albuterol 0.083% [Albuterol 1 vial IH QID 12/08/16 07/12/17 Sulfate 3 Ml] Cholecalciferol (Vitamin D3) 2,000 unit PO DAILY 12/08/16 07/12/17 [Vitamin D3] Gemfibrozil [Lopid] 600 mg PO BID 12/08/16 07/12/17 Magnesium Oxide [Magox 400] 2 tab PO BID 12/08/16 07/12/17 predniSONE [Prednisone] 10 mg PO DAILY 12/08/16 07/12/17 Glimepiride [Amaryl] 2 mg PO ACB 07/12/17 07/12/17 Warfarin [Coumadin] 2 mg PO QOTHERDAY 07/12/17 07/12/17 Review of Systems - Review of Systems Systems not reviewed;Unavailable: Acuity of Condition Respiratory: SOB Physical Exam Vital Signs Reviewed: Yes Vital Signs Temp Pulse Resp BP Pulse Ox 07/12/17 05:35 82 20 126/83 07/12/17 04:23 99.5 F 07/12/17 03:52 111 H 18 157/93 H 99 07/12/17 03:44 100 H 30 H 143/82 100 07/12/17 03:40 108/91 H 07/12/17 03:34 110 H 32 H 91 L 07/12/17 03:30 32 H 91 L Temperature: Afebrile Blood Pressure: Normal Pulse: Tachycardic Respiratory Rate: Tachypneic Appearance: Positive for: Ill-Appearing, Other (morbidly obese; pt in respiratory distress) Pain Distress: None Mental Status: Positive for: other (Patient tiring out and becoming confused and not answering questions) - Systems Exam Head: Present: Atraumatic, Normocephalic Pupils: Present: PERRL Conjunctiva: Present: Normal Mouth: Present: Moist Mucous Membranes Pharnyx: Present: Normal. No: ERYTHEMA, EXUDATE Neck: Present: Normal Range of Motion Respiratory/Chest: Present: Respiratory Distress, Decreased Breath Sounds, Rhonchi, Other (bilateral crackles R>L with prolonged expiratory phase) Cardiovascular: Present: Normal S1, S2, Tachycardic. No: Murmurs Abdomen: Present: Normal Bowel Sounds, Other (obese, mildly distended) Back: Present: Normal Inspection Upper Extremity: Present: Normal Inspection. No: Cyanosis, Edema Lower Extremity: Present: Normal Inspection. No: Edema Skin: Present: Warm, Dry, Normal Color. No: Rashes Medical Decision Making ED Course and Treatment: 07/12/17 04:47 Impression: 52 year old male brought in by EMS presents with respiratory distress that began prior to arrival Differential Diagnosis included but are not limited to: COPD vs pneumonia vs CHF vs PE Plan: -- EKG -- Chest X-ray -- Urinalysis -- Blood Culture -- Urine Culture -- Labs -- Maxipime, Atrovent, Xopenex, Diprivan, and Vancomycin -- Reassess and disposition Prior Visits: Notes and results from previous visits were reviewed. Patient was last seen in the emergency department on 04/23/17 for evaluation of abnormal lab work. Patient was discharged home. Progress Notes: 07/12/17 03:35 Patient intubated via glide scope, one attempt vocal cords were visualized. 7.5 ET tube past through cords with stylete. ET tube was placed at 23 cm at the lip. There was color change by CO2 capnometer and breath sounds were equal bilaterally, post-intubation. CXR showing good ET tube position. Patient was given etomidate and succinyl choline prior intubation procedure. 07/12/17 05:49 Patient in noted respiratory distress, given solumedrol of 125mg in the field and nebs by EMS, brought in on NRB with O2 sats in the 80s. Patient here in the ED arrived in severe distress and unable to speak and tiring out, needing endotracheal intubation, done using [place] Scope as noted with good ET tube position. Labs with leukocytosis of 26K with CXR showing RUL infiltrate; started on IV antibiotics. Lactic acid is less than 2, not a code sepsis protocol. ABG showing hypercapnea. Case was discussed with Dr. Shell for admission to his service. Case was discussed with Dr. San, ICU attending for ICU admission. - Lab Interpretations Lab Results: 07/12/17 03:35 07/12/17 03:35 Lab Results 07/12/17 03:35: Alcohol, Quantitative < 10 07/12/17 03:35: Sodium 138, Potassium 4.2, Chloride 83 L, Carbon Dioxide 44 H D , Anion Gap 15, BUN 23 H, Creatinine 1.1, Est GFR ( Amer) > 60, Est GFR ( Non-Af Amer) > 60, Random Glucose 275 H, Calcium 11.4 H, Phosphorus 6.9 H, Magnesium 3.0 H, Total Bilirubin 0.9, Direct Bilirubin 0.5 H, AST 39, ALT 29, Alkaline Phosphatase 122, Lactate Dehydrogenase 555, Total Creatine Kinase 74, Troponin I 0.04 D, NT-Pro-B Natriuret Pep 392, Total Protein 9.3 H, Albumin 4.5 , Globulin 4.8, Albumin/Globulin Ratio 0.9 L, Lipase 158 07/12/17 03:35: PT 20.5 H, INR 1.86 H, APTT 38.3 H 07/12/17 03:35: WBC 26.5 H* D, RBC 5.17, Hgb 15.2, Hct 49.5, MCV 95.7, MCH 29.4 , MCHC 30.7 L, RDW 16.0 H, Plt Count 324, MPV 10.3, Gran % 72.0 H, Lymph % (Auto ) 16.4 L, [place] % (Auto) 10.0 H, Eos % (Auto) 1.2 L, Baso % (Auto) 0.4, Gran # 19.06 H, Lymph # 4.4 H, [place] # 2.7 H, Eos # 0.3, Baso # 0.11 I have reviewed the lab results: Yes - RAD Interpretation Radiology Orders: 07/12/17 03:38 CHEST PORTABLE [RAD] Stat - EKG Interpretation EKG Interpretation (Text): 07/12/17 05:54 NSR @ 89 with LBBB; QRS is 144 Interpreted by ED Physician: Yes Type: 12 lead EKG Comparison: Similar to previous EKG - Medication Orders Current Medication Orders: Albuterol/Ipratropium (Duoneb 3 Mg/0.5 Mg (3 Ml) Ud) 3 ml IH Q4H RENE Stop: 07/12/17 13:31 Atorvastatin Calcium (Lipitor) 20 mg PO DIN RENE Carvedilol (Coreg) 12.5 mg PO BID RENE Digoxin (Lanoxin) 0.125 mg PO 1400 RENE Duloxetine HCl (Cymbalta) 30 mg PO DAILY RENE Gemfibrozil (Lopid) 600 mg PO BID RENE Heparin Sodium (Porcine) (Heparin) 5,000 units SC Q8H RENE PRN Reason: Protocol Cefepime HCl (Maxipime 1gm) 1 gm in 100 mls @ 100 mls/hr IVPB Q12 RENE PRN Reason: Protocol Azithromycin (Zithromax 500mg In Ns) 500 mg in 250 mls @ 167 mls/hr IVPB STAT STA PRN Reason: Protocol Stop: 07/12/17 06:53 Azithromycin 250 mg/ Sodium (Chloride) 250 mls @ 167 mls/hr IVPB DAILY RENE PRN Reason: Protocol Stop: 07/17/17 10:01 Propofol (Diprivan) 1,000 mg in 100 mls @ 3.119 mls/hr IV .Q24H PRN; Protocol; 5 MCG/KG/MIN PRN Reason: TITRATE PER MD ORDER Methylprednisolone (Solu-Medrol) 40 mg IVP Q8 RENE Montelukast Sodium (Singulair) 10 mg PO DAILY RENE Pantoprazole Sodium (Protonix Ec Tab) 40 mg PO 0600 RENE Verapamil HCl ([place] Tab) 40 mg PO TID RENE Warfarin Sodium (Coumadin) 2 mg PO QOTHERDAY RENE PRN Reason: Protocol Discontinued Medications Propofol (Diprivan) 1,000 mg in 100 mls @ 3.119 mls/hr IV .Q24H PRN; Protocol; 5 MCG/KG/MIN PRN Reason: TITRATE PER MD ORDER Last Admin: 07/12/17 03:55 Dose: 5 mcg/kg/min, 3.119 mls/hr eMAR Start Stop Document 07/12/17 03:55 RD (Rec: 07/12/17 04:38 RD [id number]) Intravenous Solution Start Date 07/12/17 Start Time 04:38 Titration Intervention Document 07/12/17 03:55 RD (Rec: 07/12/17 04:38 RD [id number]) Titration Intake Waste Amount 0 Container Volume 100 Titration Dosing Titration Dose 5 IV Rate 3.119 Intake/Decrease Started Vancomycin HCl (Vancomycin 1gm) 1 gm in 250 mls @ 167 mls/hr IVPB STAT STA PRN Reason: Protocol Stop: 07/12/17 05:42 Cefepime HCl (Maxipime 1gm) 1 gm in 100 mls @ 100 mls/hr IVPB STAT STA Stop: 07/12/17 05:22 Last Admin: 07/12/17 04:36 Dose: 100 mls/hr eMAR Start Stop Document 07/12/17 04:36 RD (Rec: 07/12/17 04:36 RD [id number]) Intravenous Solution Start Date 07/12/17 Start Time 04:25 End Date 07/12/17 End time 05:25 Total Infusion Time 60 Ipratropium [place] (Atrovent) 0.5 mg IH STAT STA Stop: 07/12/17 04:05 Last Admin: 07/12/17 04:36 Dose: 0.5 mg Ipratropium [place] (Atrovent) 0.5 mg IH STAT STA Stop: 07/12/17 04:05 Last Admin: 07/12/17 05:09 Dose: 0.5 mg Levalbuterol HCl (Xopenex) 1.25 mg IH STAT STA Stop: 07/12/17 04:05 Last Admin: 07/12/17 04:36 Dose: 1.25 mg Levalbuterol HCl (Xopenex) 1.25 mg IH STAT STA Stop: 07/12/17 04:05 Last Admin: 07/12/17 05:09 Dose: 1.25 mg Midazolam HCl (Versed Inj) 2 mg IVP STAT STA Stop: 07/12/17 04:50 Last Admin: 07/12/17 04:53 Dose: 2 mg IVP Administration Document 07/12/17 04:53 RD (Rec: 07/12/17 04:53 RD [id number]) Charges for Administration # of IVP Administrations 1 - Scribe Statement The provider has reviewed the documentation as recorded by the Petrona Tripp Provider Scribe Attestation: All medical record entries made by the Scribe were at my direction and personally dictated by me. I have reviewed the chart and agree that the record accurately reflects my personal performance of the history, physical exam, medical decision making, and the department course for this patient. I have also personally directed, reviewed, and agree with the discharge instructions and disposition. Disposition/Present on Arrival - Present on Arrival Any Indicators Present on Arrival: No History of DVT/PE: No History of Uncontrolled Diabetes: No Urinary Catheter: No History of Decub. Ulcer: No History Surgical Site Infection Following: None - Disposition Have Diagnosis and Disposition been Completed?: Yes Diagnosis: Pneumonia, Respiratory distress, Leukocytosis Disposition: HOSPITALIZED Disposition Time: 03:50 Patient Plan: Admission, ICU Condition: CRITICAL
[2017-07-12 03:57] LABS: HEMATOCRIT 49.5 % (42.0-52.0); MEAN CELL VOLUME 95.7 fl (80.0-105.0); MEAN CORPUSCULAR HEMOGLOBIN 29.4 pg (25.0-35.0); MEAN CORPUSCULAR HGB CONC 30.7 g/dl (31.0-37.0); MEAN PLATELET VOLUME 10.3 fl (7.0-11.0)
[2017-07-12 03:58] LABS: BASO # 0.11 K/mm3 (0.0-2.0); BASO % 0.4 % (0.0-3.0); EOS # 0.3 (0.0-0.7); EOS % 1.2 % (1.5-5.0); GRAN # 19.06 (1.4-6.5); LYMPH # 4.4 (1.2-3.4); LYMPH % 16.4 % (22.0-35.0); MONO # 2.7 (0.1-0.6)
[2017-07-12 04:04] LABS: WHITE BLOOD COUNT 26.5 10^3/ul (4.5-11.0)
[2017-07-12] MEDS ORDERED: Ipratropium 0.02% Inhal Soln (0.5 mg/2.5 ml) UD IH STA ×2 (04:04)
[2017-07-12] MEDS ORDERED: Levalbuterol 1.25 MG/3 ML Inhal Soln UD IH STA ×2 (04:04)
[2017-07-12 04:07] LABS: ALB/GLOB RATIO 0.9 (1.1-1.8); ALKALINE PHOSPHATASE 122 U/L (38-126); ALT/SGPT 29 U/L (7-56); AST/SGOT 39 U/L (17-59); BILIRUBIN,DIRECT 0.5 mg/dL (0.0-0.4); BILIRUBIN,TOTAL 0.9 mg/dL (0.2-1.3); BLOOD UREA NITROGEN 23 mg/dL (7-21); CALCIUM 11.4 mg/dL (8.4-10.5); CHLORIDE 83 mmol/L (98-107); GFR AFRICAN-AMERICAN > 60; GLUCOSE,RANDOM 275 mg/dL (70-110); LIPASE 158 U/L (23-300); PHOSPHOROUS 6.9 mg/dL (2.5-4.5); POTASSIUM 4.2 mmol/L (3.6-5.0); SODIUM 138 mmol/L (132-148); TOTAL PROTEIN 9.3 g/dL (5.8-8.3)
[2017-07-12] MEDS ORDERED: Vancomycin 1gm in NS 250ml 1 GM/250 ML BAG IVPB STA (04:13)
[2017-07-12 04:15] LABS: INR 1.86 (0.93-1.08); PARTIAL THROMBOPLASTIN TIME 38.3 Seconds (25.1-36.5)
[2017-07-12] MEDS ORDERED: Cefepime (Maxipime) 1 g Inj IVPB STA (04:16)
[2017-07-12 04:19] LABS: TROPONIN I 0.04 ng/mL
[2017-07-12 04:22] LABS: ABG MECHANICAL RATE 16; ARTERIAL BLOOD GAS PH 7.31 (7.35-7.45); ATERIAL BLOOD GAS PEEP 5
[2017-07-12] MEDS ORDERED: Cefepime 1gm in NS 100ml 1 GM/100 ML BAG IVPB STA (04:23)
[2017-07-12 04:39] LABS: CARBON DIOXIDE 44 mmol/L (21-33)
[2017-07-12 04:41] LABS: ARTERIAL BLOOD GAS HCO3 41.8 mmol/L (21-28)
[2017-07-12] MEDS ORDERED: Midazolam 2 MG/2 ML VIAL IVP STA (04:49)
[2017-07-12] MEDS ORDERED: Midazolam 2 MG/2 ML VIAL ONE (04:51)
[2017-07-12] MEDS ORDERED: Azithromycin 500MG/NS 250ml 500 MG/250 ML BAG IVPB STA (05:24)
--- NOTE | 2017-07-12 05:27 | CP.PCM.HP ---
<Yeimi Carrasco - Last Filed: 07/12/17 06:56> History of Present Illness - History of Present Illness History of Present Illness: CC: "I can't breathe" HPI: Patient is a 52 year old male with past medical history of COPD, systolic CHF (EF 15-20%), Afib on coumadin, CAD, HTN, HLD, DM presents to the ED for shortness of breath and productive cough x 3 days. History was obtained from the girlfriend at the bedside as patient is currently intubated and sedated. States that patient has been feeling short of breath for a few days with cough and clear sputum production. At baseline patient uses 3L of O2 at home. Patient had been using nebulizer treatments with minimal improvement in respiratory status. Patient called EMS for severe difficulty breathing. While in the ambulance, patient was having low saturations. Was given duonebs, magnesium sulfate, solu-medrol. ROS obtained by girlfriend. Admits to chills, feeling clammy. Denies fevers, headaches, dizziness, cp, palpitations, abdominal pain, urinary symptoms, changes in bowel habits. ED course: Upon arrival patient was unable to speak in complete sentences, in acute respiratory distress, using accessory muscles, and was subsequently intubated for respiratory failure. PMD: Dr Shell Allergies: NKDA, Cat dander Medications: Lipitor 20mg, Albuterol, Singulair 10mg, Coumadin 2mg qod, Folic acid, cymbalta 30mg, Thiamine, Allopurinol 300mg, Digoxin 0.125mg, Vitamin D3, Verapamil 40mg TID, Protonix, Coreg 12.5mg BID, Lasix 40mg TID, Glimeperide 2mg , Gemfibrizol 600mg BID, Prednisone 10mg Medical Hx: COPD, CHF, Afib on coumadin, CAD, HTN, DM Surgical Hx: umbilical hernia repair Social Hx: Smokes 1/2-1ppd x 20 years, denies alcohol, drug use; lives with girlfriend Family Hx: Denies Present on Admission - Present on Admission Any Indicators Present on Admission: No Review of Systems - Review of Systems Systems not reviewed;Unavailable: Intubated (Intubated and sedated) Past Patient History - Infectious Disease Hx of Infectious Diseases: None - Tetanus Immunizations Tetanus Immunization: Unknown - Past Medical History & Family History Past Medical History?: Yes - Past Social History Smoking Status: Heavy Smoker > 10 Cigarettes Daily - CARDIAC Hx Cardia Arrhythmia: Yes (a fib) Hx Congestive Heart Failure: Yes Hx Hypertension: Yes - PULMONARY Hx Respiratory Disorders: Yes (SOB [id number]) Hx Bronchitis: Yes Hx Chronic Obstructive Pulmonary Disease (COPD): Yes Hx Pneumonia: Yes Hx Sleep Apnea: Yes - NEUROLOGICAL HX Cerebrovascular Accident: No - HEENT Hx HEENT Problems: No Hx Blind: No Hx Cataracts: No Hx Deafness: No Hx Difficulty Chewing: No Hx Epistaxis: No Hx Glaucoma: No Hx Macular Degeneration: No - RENAL Hx Renal Failure: No - ENDOCRINE/METABOLIC Hx Diabetes Mellitus Type 2: Yes - HEMATOLOGICAL/ONCOLOGICAL Hx Unexplained Bleeding: No - INTEGUMENTARY Other/Comment: multiple skin discolorations to ble - MUSCULOSKELETAL/RHEUMATOLOGICAL Hx Falls: No - GASTROINTESTINAL Hx Gastrointestinal Disorders: Yes (obese) Other/Comment: umbilical hernia repair - GENITOURINARY/GYNECOLOGICAL Hx Hematuria: Yes Hx Urinary Tract Infection: Yes - PSYCHIATRIC Hx Anxiety: Yes Hx Substance Use: No - SURGICAL HISTORY Other/Comment: umbilical hernia sx - ANESTHESIA Hx Anesthesia Reactions: No Hx Malignant Hyperthermia: No Meds Allergies/Adverse Reactions: Allergies Allergy/AdvReac Type Severity Reaction Status Date / Time cat dander Allergy SHORTNESS Uncoded 07/12/17 04:25 OF BREATH Physical Exam - Constitutional Additional comments: Intubated and sedated - Head Exam Head Exam: ATRAUMATIC, NORMAL INSPECTION - Eye Exam Eye Exam: Normal appearance, PERRL Pupil Exam: NORMAL ACCOMODATION - ENT Exam ENT Exam: Mucous Membranes Moist - Neck Exam Neck exam: Positive for: Full Rom - Respiratory Exam Respiratory Exam: Rhonchi, Wheezes Additional comments: +Ventilator breath sounds - Cardiovascular Exam Cardiovascular Exam: Tachycardia, +S1, +S2. absent: Systolic Murmur - GI/Abdominal Exam GI & Abdominal Exam: Distended, Normal Bowel Sounds, Soft. absent: Guarding, Rebound, Rigid, Tenderness - Extremities Exam Extremities exam: Positive for: normal inspection, pedal pulses present. Negative for: calf tenderness, pedal edema - Back Exam Back exam: NORMAL INSPECTION - Neurological Exam Additional comments: Intubated and sedated - Skin Skin Exam: Dry, Normal Color, Warm Results - Vital Signs Recent Vital Signs: Last Vital Signs Temp 99.5 F 07/12/17 04:23 Pulse 111 H 07/12/17 03:52 Resp 18 07/12/17 03:52 BP 157/93 H 07/12/17 03:52 Pulse Ox 99 07/12/17 03:52 - Labs Result Diagrams: 07/12/17 03:35 07/12/17 03:35 Labs: Laboratory Results - last 24 hr 07/12/17 07/12/17 04:20 04:30 pCO2 83 H* pO2 467.0 H HCO3 41.8 H* ABG pH 7.31 L ABG Total CO2 44.3 H ABG O2 Saturation 99.7 H ABG Base Excess 11.8 H ABG Potassium 3.8 Sodium 134.0 Chloride 92.0 L Glucose 271 H Lactate 1.5 Mechanical Rate 16 FiO2 100.0 Tidal Volume 500 PEEP 5 POC Glucose (mg/dL) 225 H Arterial Blood Potassium 3.8 Assessment & Plan - Assessment and Plan (Free Text) Assessment: 52 year old male with past medical history of COPD, CHF, Afib on coumadin, CAD, HTN, DM presents to the ED for shortness of breath and productive cough x 3 days. Patient was intubated and admitted to the ICU for respiratory failure 2/2 COPD exacerbation. Plan: Neurology -Intubated and sedated with propofol -Responds to verbal/tactile stimuli -UTOX negative Pulmonary -Admit to ICU for acute hypercapnic respiratory failure 2/2 COPD exacerbation -Currently intubated and sedated with propofol -Mechanical Vent settings: TV 450, FiO2 40, PEEP 5, RR 20 -F/U CXR official read -Soulmedrol 40mg Q8H -Duonebs q4H -Continue antibiotics: Azitromycin, Cefepime -Serial ABGs, CXRs -Daily SBT trails -Continue pulmonary toilet -HOB > 30 degrees Cardiovascular -Currently Hemodynamically stable -History of HTN, HLD, afib on coumadin, systolic CHF (EF 15-20%) -EKG showing sinus tachycardia with occasional PVC -INR 1.86 subtherapeutic -Continue Coreg 12.5mg BID, Verapamil 40mg TID -Continue Digoxin 0.125mg, f/u Dig level -Continue Coumadin 2mg QOD -Continue Lipitor 20mg, Gemfibrizol 600mg BID -Daily weights, Strict I/Os -Target MAP > 65 GI -Diet: NPO -GI ppx: Protonix 40mg Renal -Renal function stable at this time -Strict I/Os -Continue to monitor BUN/Cr -Supplement and replete electrolytes as needed Endocrine -History of DM on Glimeperide -Target blood sugars 140-180 -Low dose ISS -Accuchecks Infectious Disease -Sepsis, etiology unclear -No apparent source of infection at this time -Leukocytosis 26.5 on admission -F/U CXR official read -F/U blood culture, sputum cx, urine cx, procal -Abx: Cefepime 1gm Q12H, Azithromycin 250mg daily GI/DVT ppx -Protonix -Heparin 5000U Q8H Plan discussed with Dr San <Cristo San Q - Last Filed: 07/15/17 23:30> Results - Vital Signs Recent Vital Signs: Last Vital Signs Temp 98.3 F 07/15/17 17:51 Pulse 98 H 07/15/17 18:00 Resp 21 07/15/17 17:51 BP 116/66 07/15/17 17:51 Pulse Ox 99 07/15/17 06:00 - Labs Result Diagrams: 07/15/17 05:30 07/15/17 05:30 Labs: Laboratory Results - last 24 hr 07/15/17 07/15/17 07/15/17 02:18 05:30 05:30 WBC 13.8 H RBC 4.36 Hgb 12.6 L Hct 41.1 L MCV 94.3 MCH 28.9 MCHC 30.7 L RDW 15.6 H Plt Count 229 MPV 10.0 Gran % 91.1 H Lymph % (Auto) 4.1 L [place] % (Auto) 4.8 Eos % (Auto) 0.0 L Baso % (Auto) 0.0 Gran # 12.54 H Lymph # 0.6 L Tripp # 0.7 H Eos # 0.0 Baso # 0.00 PT INR APTT Sodium 141 Potassium 4.3 Chloride 95 L Carbon Dioxide 39 H Anion Gap 11 BUN 37 H Creatinine 0.7 L Est GFR ( Amer) > 60 Est GFR (Non-Af Amer) > 60 POC Glucose (mg/dL) 180 H Random Glucose 162 H Calcium 8.9 Magnesium 1.7 Total Bilirubin 0.5 Direct Bilirubin 0.5 H AST 35 ALT 40 Alkaline Phosphatase 63 Total Creatine Kinase 207 Troponin I 0.03 Total Protein 7.3 Albumin 3.7 Globulin 3.5 Albumin/Globulin Ratio 1.1 07/15/17 07/15/17 07/15/17 05:30 07:22 11:10 WBC RBC Hgb Hct MCV MCH MCHC RDW Plt Count MPV Gran % Lymph % (Auto) [place] % (Auto) Eos % (Auto) Baso % (Auto) Gran # Lymph # [place] # Eos # Baso # PT 28.4 H INR 2.53 H APTT 31.4 Sodium Potassium Chloride Carbon Dioxide Anion Gap BUN Creatinine Est GFR ( Amer) Est GFR (Non-Af Amer) POC Glucose (mg/dL) 173 H 177 H Random Glucose Calcium Magnesium Total Bilirubin Direct Bilirubin AST ALT Alkaline Phosphatase Total Creatine Kinase Troponin I Total Protein Albumin Globulin Albumin/Globulin Ratio 07/15/17 07/15/17 16:13 21:08 WBC RBC Hgb Hct MCV MCH MCHC RDW Plt Count MPV Gran % Lymph % (Auto) [place] % (Auto) Eos % (Auto) Baso % (Auto) Gran # Lymph # Tripp # Eos # Baso # PT INR APTT Sodium Potassium Chloride Carbon Dioxide Anion Gap BUN Creatinine Est GFR ( Amer) Est GFR (Non-Af Amer) POC Glucose (mg/dL) 232 H 208 H Random Glucose Calcium Magnesium Total Bilirubin Direct Bilirubin AST ALT Alkaline Phosphatase Total Creatine Kinase Troponin I Total Protein Albumin Globulin Albumin/Globulin Ratio Attending/Attestation - Attestation I have personally seen and examined this patient.: Yes I have fully participated in the care of the patient.: Yes I have reviewed all pertinent clinical information: Yes Notes (Text): 07/15/17 23:27 I agree with the above mentioned note and exam by the resident with the addition /exception of the followin y.o male with a PMHx as above, known to myself from a previous hospitalization in the ICU returned to the ED intubated by EMS due to difficulty breathing. Patient was admitted to the ICU for acute on chronic hypercapnic respiratory failure as a result of COPD exacerbation +/- Community acquired pneumonia. Patient was placed on IV steroids, nebulizer treatments as well as IV Antibiotics. all labs and images available to myself at the time of admission were reviewed personally Case discussed with Dr. Scarlet in the ED total time of care: 50 minutes
[2017-07-12] MEDS ORDERED: MethylPREDNISolone 40 mg Vial IVP SCH (06:00)
[2017-07-12] MEDS ORDERED: Pantoprazole 40 mg EC Tab PO SCH (06:00)
[2017-07-12 06:05] LABS: URINE BILIRUBIN NEGATIVE (NEGATIVE); URINE BLOOD MODERATE (NEGATIVE); URINE GLUCOSE (UA) NEGATIVE (NEGATIVE); URINE KETONE NEGATIVE (NEGATIVE); URINE LEUKOCYTE ESTERASE NEGATIVE Leu/uL (NEGATIVE); URINE PROTEIN 100 mg/dL (<30 mg/dL); URINE UROBILINOGEN 0.2 E.U./dL (<1 E.U./dL)
[2017-07-12 06:56] LABS: URINE APPEARANCE SL CLOUDY (CLEAR); URINE COLOR YELLOW (YELLOW)
[2017-07-12 06:58] LABS: URINE EPITHELIAL CELLS 0 - 2 /hpf (0-5); URINE WBC 0 - 2 /hpf (0-6)
[2017-07-12 06:59] LABS: URINE BACTERIA MOD (NEG)
[2017-07-12 07:35] VITALS: BMI 35.3
[2017-07-12] MEDS: Albuterol-Ipratrop 3 mg / 0.5 (3 ml) UD IH SCH ×3 (07:38→15:21)
[2017-07-12 08:20] LABS: ARTERIAL BLOOD GAS HCO3 40.1 mmol/L (21-28); ARTERIAL BLOOD GAS O2 CAPACITY 17.9 mL/dl (16-24); ARTERIAL BLOOD GAS O2 CONTENT 17.4 ML/dl (15-23); ARTERIAL BLOOD GAS PH 7.44 (7.35-7.45); ARTERIAL BLOOD HGB O2 SAT 94.1 % (95.0-98.0); CARBOXYHEMOGLOBIN 2.5 % (0.5-1.5); HHB 2.5 % (0-5)
--- NOTE | 2017-07-12 08:21 | RAD ---
HISTORY: Sepsis Patient COMPARISON: Chest x-ray performed 12/08/16 TECHNIQUE: Chest, one view. FINDINGS: Examination limited by habitus. Endotracheal tube terminates approximately 7.6 cm above the level the [place]. LUNGS: Patchy infiltrates within the right greater than left upper lobes. Prominent interstitial markings are noted. Please note that chest x-ray has limited sensitivity for the detection of pulmonary masses. PLEURA: No significant pleural effusion identified. No definite pneumothorax . CARDIOVASCULAR: Cardiomegaly. OSSEOUS STRUCTURES: No acute osseous abnormality identified. VISUALIZED UPPER ABDOMEN: Unremarkable. OTHER FINDINGS: None. IMPRESSION: Endotracheal tube terminates approximately 7.6 cm above the level the [place]. Cardiomegaly. Patchy infiltrates within the right greater than left upper lobes. Prominent interstitial markings are noted. Study has been marked for PA review.
[2017-07-12] MEDS ORDERED: Morphine 2 mg/ml ISec IVP STA (08:40)
[2017-07-12] MEDS: Insulin Lispro (humaLOG) LOW Coverage SC SCH ×4 (08:45→22:45)
[2017-07-12] MEDS ORDERED: Sodium Chloride 0.9% 1,000 ML IV SCH (09:45)
--- NOTE | 2017-07-12 10:05 | CP.PCM.CON ---
History of Present Illness - History of Present Illness History of Present Illness: 52 year old male with PMH of COPD with a history of heavy smoking, systolic CHF with Ejection fraction 10-15%, HTN, S/P umbilical hernia surgery, obesity with BMI 35, atrial fibrillation on anticoagulation came in [place] [facility] because of difficulty breathing associated with non-productive cough, dyspnea on exertion and chills for the past 2-3 days which worsened yesterday. He was not able to measure his temperature at home. In the ED he was found to be very hypoxic and had to be intubated. He is currently comfortable and awake and alert on the ventilator. He denies headache or dizziness, no nausea or vomiting, no chest pain or palpitations, no dysphagia prior to admission, no rhinorrhea, no abdominal pain, no diarrhea, no dysuria. CXR done in the ED is showing some infiltrates in the upper lobes. Infectious Diseases consult is requested to further evaluate and manage. Review of Systems - Review of Systems All systems: reviewed and no additional remarkable complaints except (as per HPI ) Past Patient History - Infectious Disease Hx of Infectious Diseases: None - Tetanus Immunizations Tetanus Immunization: Unknown - Past Medical History & Family History Past Medical History?: Yes - Past Social History Smoking Status: Heavy Smoker > 10 Cigarettes Daily - CARDIAC Hx Cardia Arrhythmia: Yes (a fib) Hx Congestive Heart Failure: Yes Hx Hypertension: Yes - PULMONARY Hx Respiratory Disorders: Yes (SOB [id number]) Hx Bronchitis: Yes Hx Chronic Obstructive Pulmonary Disease (COPD): Yes Hx Pneumonia: Yes Hx Sleep Apnea: Yes - NEUROLOGICAL HX Cerebrovascular Accident: No - HEENT Hx HEENT Problems: No Hx Blind: No Hx Cataracts: No Hx Deafness: No Hx Difficulty Chewing: No Hx Epistaxis: No Hx Glaucoma: No Hx Macular Degeneration: No - RENAL Hx Renal Failure: No - ENDOCRINE/METABOLIC Hx Diabetes Mellitus Type 2: Yes - HEMATOLOGICAL/ONCOLOGICAL Hx Unexplained Bleeding: No - INTEGUMENTARY Other/Comment: multiple skin discolorations to ble - MUSCULOSKELETAL/RHEUMATOLOGICAL Hx Falls: No - GASTROINTESTINAL Hx Gastrointestinal Disorders: Yes (obese) Other/Comment: umbilical hernia repair - GENITOURINARY/GYNECOLOGICAL Hx Hematuria: Yes Hx Urinary Tract Infection: Yes - PSYCHIATRIC Hx Anxiety: Yes Hx Substance Use: No - SURGICAL HISTORY Other/Comment: umbilical hernia sx - ANESTHESIA Hx Anesthesia Reactions: No Hx Malignant Hyperthermia: No Meds Allergies/Adverse Reactions: Allergies Allergy/AdvReac Type Severity Reaction Status Date / Time cat dander Allergy SHORTNESS Uncoded 07/12/17 04:25 OF BREATH - Medications Medications: Current Medications Albuterol/Ipratropium (Duoneb 3 Mg/0.5 Mg (3 Ml) Ud) 3 ml Q4H [facility] Stop: 07/12/17 13:31 Last Admin: 07/12/17 07:38 Dose: 3 ml Atorvastatin Calcium (Lipitor) 20 mg PO DIN [facility] Azithromycin (Zithromax) 500 mg PO DAILY [facility] PRN Reason: Protocol Carvedilol (Coreg) 12.5 mg PO BID [facility] Digoxin (Lanoxin) 0.125 mg PO 1400 [facility] Duloxetine HCl (Cymbalta) 30 mg PO DAILY [facility] Gemfibrozil (Lopid) 600 mg PO BID [facility] Heparin Sodium (Porcine) (Heparin) 5,000 units SC Q8H [facility] PRN Reason: Protocol Cefepime HCl (Maxipime 1gm) 1 gm in 100 mls @ 100 mls/hr IVPB Q12 [facility] PRN Reason: Protocol Azithromycin 250 mg/ Sodium (Chloride) 250 mls @ 167 mls/hr IVPB DAILY [facility] PRN Reason: Protocol Stop: 07/17/17 10:01 Propofol (Diprivan) 1,000 mg in 100 mls @ 3.119 mls/hr IV .Q24H PRN; Protocol; 5 MCG/KG/MIN PRN Reason: TITRATE PER MD ORDER Last Titration: 07/12/17 06:30 Dose: 48.2 mcg/kg/min, 30.066 mls/hr Insulin Human Lispro (Humalog Low) 0 units SC ACHS [facility] PRN Reason: Protocol Methylprednisolone (Solu-Medrol) 40 mg IVP Q8 [facility] Montelukast Sodium (Singulair) 10 mg PO DAILY [facility] Pantoprazole Sodium (Protonix Inj) 40 mg IVP DAILY [facility] Verapamil HCl (Calan Tab) 40 mg PO TID [facility] Warfarin Sodium (Coumadin) 2 mg PO QOTHERDAY [facility] PRN Reason: Protocol Physical Exam - Constitutional Appears: Other (on the ventilator, awake, alert, comfortable) - Head Exam Head Exam: NORMAL INSPECTION - ENT Exam Additional comments: ET tube in place - Neck Exam Neck exam: Negative for: Lymphadenopathy, Meningismus - Respiratory Exam Respiratory Exam: Decreased Breath Sounds, Wheezes (scattered) - Cardiovascular Exam Cardiovascular Exam: +S1, +S2 - GI/Abdominal Exam GI & Abdominal Exam: Soft. absent: Tenderness Results - Vital Signs Recent Vital Signs: Last Vital Signs Temp 98.8 F 07/12/17 06:44 Pulse 78 07/12/17 06:44 Resp 20 07/12/17 06:44 BP 116/74 07/12/17 06:44 Pulse Ox 93 L 07/12/17 06:39 - Labs Result Diagrams: 07/12/17 03:35 07/12/17 03:35 Labs: Laboratory Results - last 24 hr 07/12/17 07/12/17 07/12/17 04:20 04:30 05:31 pCO2 83 H* pO2 467.0 H HCO3 41.8 H* ABG pH 7.31 L ABG Total CO2 44.3 H ABG O2 Saturation 99.7 H ABG O2 Content ABG Base Excess 11.8 H ABG Hemoglobin ABG Carboxyhemoglobin POC ABG HHb (Measured) ABG Methemoglobin ABG O2 Capacity ABG Potassium 3.8 Hgb O2 Saturation Sodium 134.0 Chloride 92.0 L Glucose 271 H Lactate 1.5 Mechanical Rate 16 FiO2 100.0 Tidal Volume 500 PEEP 5 POC Glucose (mg/dL) 225 H Arterial Blood Potassium 3.8 Urine Color Yellow Urine Appearance Sl cloudy Urine pH 6.0 Ur Specific [place] >= 1.030 Urine Protein 100 H Urine Glucose (UA) Negative Urine Ketones Negative Urine Blood Moderate H Urine Nitrate Negative Urine Bilirubin Negative Urine Urobilinogen 0.2 Ur Leukocyte Esterase Negative Urine RBC 2 - 5 Urine WBC 0 - 2 Ur Epithelial Cells 0 - 2 Urine Bacteria Mod Urine Opiates Screen Urine Methadone Screen Ur Barbiturates Screen Ur Phencyclidine Scrn Ur Amphetamines Screen U Benzodiazepines Scrn U Oth Cocaine Metabols U Cannabinoids Screen 07/12/17 07/12/17 05:31 08:10 pCO2 59 H pO2 79.0 L HCO3 40.1 H* ABG pH 7.44 ABG Total CO2 41.9 H ABG O2 Saturation 97.4 ABG O2 Content 17.4 ABG Base Excess 13.4 H ABG Hemoglobin 13.1 ABG Carboxyhemoglobin 2.5 H POC ABG HHb (Measured) 2.5 ABG Methemoglobin 1.0 ABG O2 Capacity 17.9 ABG Potassium Hgb O2 Saturation 94.1 L Sodium Chloride Glucose Lactate Mechanical Rate FiO2 40.0 Tidal Volume PEEP POC Glucose (mg/dL) Arterial Blood Potassium Urine Color Urine Appearance Urine pH Ur Specific [place] Urine Protein Urine Glucose (UA) Urine Ketones Urine Blood Urine Nitrate Urine Bilirubin Urine Urobilinogen Ur Leukocyte Esterase Urine RBC Urine WBC Ur Epithelial Cells Urine Bacteria Urine Opiates Screen Negative Urine Methadone Screen Negative Ur Barbiturates Screen Negative Ur Phencyclidine Scrn Negative Ur Amphetamines Screen Negative U Benzodiazepines Scrn Negative U Oth Cocaine Metabols Negative U Cannabinoids Screen Negative Assessment & Plan - Assessment and Plan (Free Text) Plan: Assessment Consider severe sepsis with ventilator-dependent respiratory failure probably due to severe upper lobe pneumonia on top of COPD exacerbation and CHF history of ESBL E. coli HCAP in 2014 CHF with EF 25% COPD history of ESBL E. coli pneumonia in 04/2015 history of recent NSTEMI atrial fibrillation on anticoagulation DM history of alcohol abuse Plan started patient on Cefepime, IV Vancomycin and Doxycycline pending blood, sputum cx, PCT; CXR reviewed which showed upper lobe infiltrates Will monitor clinically discussed with Dr. Shell
[2017-07-12 12:23] LABS: TROPONIN I 0.05 ng/mL
--- NOTE | 2017-07-12 12:26 | CON ---
DATE: 07/12/2017 HISTORY OF PRESENT ILLNESS: The patient is a 52-year-old gentleman who has been recently in the hospital for COPD exacerbation and whose past medical history includes COPD, CHF, atrial fibrillation, diabetes, and morbid obesity, who presented at this time with shortness of breath, respiratory distress and subacute increase in his dyspnea on exertion, which began about one day prior to arrival to [facility] and culminated by his inability to maintain ventilation. The patient was intubated prior to arrival and was in emergency room already intubated. It appears that the patient also dropped his oxygen saturation and that was point at which decision to intubate him was made. No fever. No chills. No sweats. No nausea. No vomiting. No diarrhea. No constipation. PAST MEDICAL HISTORY: COPD, CHF, AFib, diabetes mellitus type 2, morbid obesity. SOCIAL HISTORY: The patient is active smoker. He smokes more than 10 cigarettes a day. No alcohol or illicit drug abuse. ALLERGIES: NKDA, HOWEVER, ALLERGIC TO CATS. MEDICATIONS AT HOME: Allopurinol, Lasix, gemfibrozil, prednisone 10 mg p.o. daily, Amaryl, warfarin. MEDICATION IN THE HOSPITAL: Include DuoNeb every 4, Lipitor, azithromycin, Coreg, cefepime, digoxin, Cymbalta, gemfibrozil, heparin subcutaneous, regular insulin sliding scale low protocol, cefepime, Solu-Medrol 40 mg IV q.8, Singulair, Protonix, vancomycin, verapamil, warfarin, azithromycin. REVIEW OF SYSTEMS: Review of 12-organ system other than mentioned in history of present illness is negative. PHYSICAL EXAMINATION: VITAL SIGNS: The patient is on pressure support 5/5 with an FIO2 of 40% on vent setting, his rapid shallow breathing index is 73. The patient is comfortable. Blood pressure 116/74, temperature 98.8, heart rate 78, oxygen saturation 95%. ENT: Head and neck atraumatic. Mucosae dry LUNGS: Decreased breath sounds bilaterally. No wheezing. No crackles. HEART: Regular rate and rhythm. S1 and S2 distant. ABDOMEN: Soft, nontender, nondistended. MUSCULOSKELETAL: Trace bilateral pedal and ankle edema. NEURO: The patient moves all extremities spontaneously. SKIN: dry. 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 Able to lift up his head more than 10 cm above the pillow. LABORATORY DATA: WBC 26.5, hemoglobin 15.2, platelet count 324. Sodium 138, potassium 4.2, chloride 83, carbon dioxide 44, BUN 23, creatinine 1.1, lactic acid 1.6, glucose 225, AST 39, ALT 29. Troponin 0.04, total protein 9.3, albumin 4.5. Chest x-ray showed infiltrates within the right greater than left upper lobes, prominent interstitial markings are noted. ASSESSMENT AND PLAN: This is a 52-year-old gentleman who presented with chronic obstructive pulmonary disease exacerbation with acute respiratory acidosis in the setting of possible community-acquired pneumonia (based on chest x-ray finding atypical pathogens are likely). The patient is on bronchodilators, steroid taper, antibiotics at present time. He tolerated pressure support trial well and will be extubated to BiPAP. His mucosa are dry. His skin is dry and he does have hypochloremia. It appears that the patient is likely hypovolemic, and I will start him on normal saline 100 mL per hour to avoid contraction alkalosis (the patient has bicarb at level of 40 and hypochloremia). I will hold diuretics. I will continue to target euvolemia, euglycemia, normothermia, and oxygen saturation more than 90%. I will continue with deep venous thrombosis and gastrointestinal prophylaxis. ccm time 40 min Darren Rodas MD MTDIsma
--- NOTE | 2017-07-12 12:33 | CARD ---
APPROVED REPORT EKG Measurement Heart [id number] <Conclusion> Sinus rhythm with occasional premature ventricular complexes Left bundle branch block Abnormal ECG
[2017-07-12] MEDS: Digoxin 125 mcg (0.125 mg) Tab PO SCH (13:53)
[2017-07-12] MEDS ORDERED: Cefepime 1gm in NS 100ml 1 GM/100 ML BAG IVPB SCH (14:00)
[2017-07-12] MEDS: Cefepime IV 2 gm in NS 2 GM/100 ML BAG IVPB SCH ×2 (16:12→21:18)
[2017-07-12] MEDS: Vancomycin 1gm in NS 250ml 1 GM/250 ML BAG IVPB SCH (16:30)
[2017-07-12] MEDS: MethylPREDNISolone 40 mg Vial IVP SCH (17:14)
--- NOTE | 2017-07-12 22:34 | HP ---
HISTORY OF PRESENT ILLNESS: The patient is a 52-year-old morbidly obese male who has been extremely noncompliant with medications, diet, came to the emergency room by [facility] in [facility]. The patient was brought in complaining of increasing shortness of breath and wheezing. The patient was given DuoNeb, magnesium sulfate 2 g and IV and Solu-Medrol 125 was given. The patient was found to be in significant respiratory distress in the emergency room. The patient was intubated by the emergency room physician. According to the ER physician's evaluation, the patient presented with severe shortness of breath. The patient deteriorated while the patient was in the emergency room with decreasing pulse ox and decreasing communication. The patient was found to be in respiratory distress. The patient was intubated. CODE STATUS: Full code. LIVING WILL ADVANCE DIRECTIVE: None. Height is 5 feet 6 inches. Weight is 225 pounds. BMI is 35. ALLERGIES: CAT DANDER. HOME MEDICATIONS: 1. Allopurinol 300 mg daily. 2. Vitamin D3 2000 units daily. 3. Thiamine 100 mg daily. 4. Ventolin HFA inhaler. 5. Singulair 10 mg daily. 6. Protonix 40 mg daily. 7. Prednisone 5 or 10 mg daily. 8. Magnesium oxide 400 mg four times a day. 9. Gemfibrozil and Lopid 600 mg twice a day. 10. Lipitor 20 mg daily. 11. Lasix 40 mg two to three times a day. 12. Digoxin 0.125 mg daily. 13. Folic acid 1 mg daily. 14. Cymbalta 30 mg daily. 15. Coumadin 2 mg four days a week. 16. Coreg 12.5 mg twice a day. 17. Verapamil 40 mg three times a day. 18. Amaryl 2 mg once a day. 19. DuoNeb nebulizer or Xopenex nebulizer. SOCIAL HISTORY: Positive for smoking. Positive for former alcohol use. OCCUPATIONAL HISTORY: The patient still works and does odd jobs. FAMILY HISTORY: Positive for hypertension, diabetes. PAST MEDICAL AND SURGICAL HISTORY: History of severe noncompliance, history of signing out against medical advise, history of multiple ventilator-dependent respiratory failure, history of multiple acute exacerbation of COPD, history of advanced oxygen and steroid dependent chronic obstructive pulmonary disease, history of type 2 diabetes mellitus, history of cardiomyopathy, history of hyperuricemia, history of hypovitaminosis D, history of hypomagnesemia, history of dyslipidemia with hyperlipidemia, hypertriglyceridemia, history of congestive heart failure, history of diabetic neuropathy, history of atrial fibrillation. The patient's past medical history is significant for hypercarbic respiratory failure with hypercarbia, CO2 retention, history of exacerbation of COPD, history of atrial fibrillation, history of noncompliance, history of obesity with elevated body mass index, history of Coumadin-dependent atrial fibrillation, history of incomplete left bundle-branch block, history of dilated cardiomyopathy with ejection fraction of 15-20%, history of dilated and severely impaired right and left ventricular systolic function, history of decompensated systolic congestive heart failure, history of obstructive sleep apnea, history of essential versus intention tremors of the upper extremity, history of ventilator-dependent respiratory failure, history of hyperuricemia, history of multiple exacerbation of chronic obstructive pulmonary disease, history of noncompliance, history of obstructive sleep apnea, history of end-stage oxygen and steroid-dependent chronic obstructive pulmonary disease, history of active nicotine dependence, history of diabetic neuropathy, history of multiple acute on chronic recurrent systolic congestive heart failure, history of umbilical hernia surgery, history of morbid obesity, history of history of hypertension, history of degenerative joint disease of the spine, history of gait dysfunction, history of respiratory failure, and history of hernia surgery. The patient was seen in the emergency room by the ER physician. The patient deteriorated and the patient was intubated in the emergency room. The patient was then admitted to ICU. PHYSICAL EXAMINATION: VITAL SIGNS: T-max 99.5, down to 98.8; heart rate 110, 100, 111, down to 84; blood pressure 163/91, 157/93, 116/74, 112/70; respirations 20; O2 sat 91% initially, then the patient was intubated. HEAD: Normocephalic, atraumatic. HEENT: Shows positive ET tube. Pinkish conjunctivae. Anicteric sclerae. NECK: Soft and supple. CHEST: Kyphosis. Positive rhonchi, positive crackles, rales, wheezing bilaterally. Decreased air entry also noted. CARDIOVASCULAR: Shows S1, S2. Positive systolic murmur, right second intercostal space left sternal border. ABDOMEN: Protuberant, obese. GENITALIA: Male. RECTAL: Deferred. EXTREMITIES: Shows no pitting edema. No calf tenderness. No Homans sign. MUSCULOSKELETAL: Shows a body mass index of greater than 35. NEUROLOGIC: Neurologically, the patient is alert, awake, responsive, is unable to communicate clearly because of the ventilation support. VASCULAR: Palpate pulses. GAIT: Not tested. PSYCHIATRIC: Not applicable. DIAGNOSTICS: WBC 25.6, hemoglobin/hematocrit 15.2/49.5, platelet 324. Granulocytes 74%. PT/INR 20.5/1.86. Initial ABG on ventilator support with vent setting of 16, FIO2 100%, tidal volume 500, PEEP of 5. PH was 7.31, pCO2 of 83, pO2 of 467, bicarb 42, saturation of 99.7. Later on, the patient was put on 40%, pH of 7.44, pCO2 of 59, pO2 of 79, bicarb 40, O2 sat is 97.4%. The patient is in the planning of getting extubated sodium 138, potassium 4.2, chloride 83, CO2 of 44, anion gap 15, BUN 23, creatinine 1.1, GFR greater than 60, glucose 275, lactic acid was 1.6. Calcium is 11.4, phosphorus 6.9, magnesium 3.0. Troponin is 0.04. BNP is 392. Urine; pH 6.0, specific gravity 1.030, urine protein 100, blood moderate, moderate bacteria. Digoxin level 0.7. Urine drug screen, alcohol negative. Chest x-ray was done in the emergency room which shows bilateral upper lobe pneumonia, possibly aspiration pneumonia with cardiomegaly. ET tube is slightly above the antonietta. EKG shows sinus rhythm with PVCs and left bundle-branch block pattern. The patient was seen in the emergency room by Dr. Novak, ER physician and the medical device sales representative. IMPRESSION AND PLAN: 1. Acute ventilator-dependent respiratory failure. 2. Acute exacerbation of chronic obstructive pulmonary disease with bronchospasm. 3. Acute hypercarbic ventilator-dependent respiratory failure. 4. Tachycardia. 5. Hypertension. 6. Tachycardia. 7. Leukocytosis with granulocytosis. 8. Coumadin-dependent atrial fibrillation. 9. Respiratory acidosis with hypercarbia. 10. Hypercarbic hypoxic respiratory failure. 11. Metabolic alkalosis. 12. Prerenal kidney injury. 13. Hyperglycemia with diabetes mellitus. 14. Hypercalcemia. 15. Hyperphosphatemia. 16. Indeterminate troponin. 17. Proteinuria. 18. Microscope hematuria, bacteriuria. 19. Bilateral upper lobe healthcare-associated ventilator dependent pneumonia. 20. Left bundle-branch block. 21. Severe sepsis with ventilator-dependent respiratory failure secondary to bilateral upper lobe healthcare-associated questionable aspiration pneumonia. 22. Dyslipidemia. 23. Diabetic neuropathy. 24. Eza-alvjcqm-quijikpij diabetes mellitus. 25. Systolic congestive heart failure. Plan at this time, the patient is to be intubated. The patient has been ordered serial labs. The patient is to be maintained on vent support with early extubation expected. At present, the patient has been ordered blood cultures, sputum cultures, MRSA cultures. Cardiology consultation and Infectious Disease consultation ordered. Procalcitonin ordered. Lactic acid level ordered. Current medications: The patient will be resumed on Calan 40 mg three times a day, Coreg 12.5 twice a day, Coumadin 2 mg every other day, Cymbalta 30 mg daily. The patient started on doxycycline 100 mg IV q.12, DuoNeb nebulizer every 4 hours, heparin 5000 subcu q.8 would be discontinued upon once INR is subtherapeutic, Humalog low-dose sliding scale coverage, digoxin 0.125 daily, Lipitor 20 mg daily, Lopid 600 twice a day. The patient is on cefepime 2 g IV q.8. The patient is on Diprivan drip. The patient is on Protonix 40 IV daily. The patient is on Singulair 10 mg daily. The patient is on Solu-Medrol 40 mg IV q.8. The patient is on vancomycin 1 g IV q.12. The patient received Zithromax 500 in the ER. The patient has been ordered repeat EKG. The patient is presently on SCDs, STEPHANIE stockings. The patient once extubated will be resumed on all the p.o. medications. The patient will be closely monitored in ICU. The patient's further management will be dependent upon the patient's clinical condition, hemodynamic status and as per the patient response to therapeutic intervention as per the patient's clinical status. Time spent in the entire management more than 1 hour 55 minutes. Dictated and electronically signed, not read. Signing off, Cedrick Shell MD [facility] # [id number]
[2017-07-13] MEDS: MethylPREDNISolone 40 mg Vial IVP SCH ×3 (03:05→17:14)
--- NOTE | 2017-07-13 04:32 | CON ---
DATE: 07/12/2017 REASON FOR CONSULTATION AND FOLLOWUP: History of paroxysmal atrial fibrillation, cardiomyopathy, CAD, admitted with respiratory distress status post intubated. HISTORY OF PRESENT ILLNESS: This is a 52-year-old lady with past medical history of COPD and history of tobacco abuse, very noncompliance with the medication, history of atrial fibrillation paroxysmal; hypertension; hyperlipidemia; diabetes, who came in with complaint of fever, chills, expectoration, respiratory distress, intubated, now successfully extubated. Information obtained from the patient who is in ICU 128, bed 5, extubated on BiPAP, complains that he was having difficulty breathing for a couple of days, coughing, fever and chills. When he came to the Emergency Room, got worse, so intubated but now successfully extubated. PAST MEDICAL HISTORY: Significant for COPD, morbid obesity, nonischemic cardiomyopathy, paroxysmal atrial fibrillation, status post cardiac catheterization, normal coronaries, morbid obesity, hypertension, hyperlipidemia. PREVIOUS CARDIAC WORKUP: As follows: The patient had a cardiac cath on 05/23/2015 that shows nonobstructive coronary artery disease, essentially normal, no focal deficits, noted ejection fraction 30%. EDP was in the range of 30. Repeat echo was done that shows four-chamber dilatation, moderate global hypokinesis, moderate tricuspid regurgitation, mild mitral regurgitation. When compared from 04/18/2014, no significant change in echo. Last echo was dated 06/05/2015, that showed four-chamber dilatation. The patient's repeat echo done on 12/10/2016, that showed four-chamber dilatation consistent with cardiomyopathy, ejection fraction 15% to 20%, trace to mild MR, TR, RV systolic pressure 22, dated 12/10/2016. SOCIAL HISTORY: Active tobacco abuse, ex-alcohol abuse, used to drink heavy, claims that he quit more than two years ago. CURRENT MEDICATIONS: The patient at home was taking prednisone, Coumadin, verapamil, thiamine, , magnesium, glyburide, gemfibrozil, folic acid, digoxin, Cymbalta, cholecalciferol, Coreg, atorvastatin, allopurinol, albuterol, metered dose inhaler. ALLERGIES: CAT DANDER. REVIEW OF SYSTEMS: The patient claimed that he has shortness of breath for one week and with fever, chills, cough for three to four days. Further as per HPI. PHYSICAL EXAMINATION: VITAL SIGNS: Temperature afebrile, heart rate 70, normal sinus, blood pressure 118/60. HEENT: PERRLA. Extraocular muscles intact. NECK: Supple. No carotid bruits or thyromegaly. CHEST: Clear to auscultation. HEART: S1 and S2 regular. ABDOMEN: Soft. EXTREMITIES: Clubbing and cyanosis negative. LABORATORY DATA: Blood workup as follows: WBC 26.5, hemoglobin 15.2, hematocrit 49.2, platelet count 324. Chemistry showed sodium 130, potassium 4.2, chloride 83, carbon dioxide 44, anion gap of 15, BUN 23, creatinine of 1.1, and troponin 0.04. Chest x-ray looks like chronic interstitial changes as well as changes consistent with CHF also. BNP is elevated. Probably chronic interstitial changes. IMPRESSION: A 52-year-old male with history of active tobacco abuse, diabetes, hypertension, hyperlipidemia, paroxysmal atrial fibrillation, noncompliance with the medication, respiratory distress requiring intubation, successfully extubated, severe cardiomyopathy, decreased left ventricular function, last echo with ejection fraction 15% to 20%, four-chamber dilatation, mitral regurgitation and tricuspid regurgitation. RECOMMENDATIONS: The patient is successfully extubated. Recommended to continue CPAP, continue broad-spectrum antibiotics. The patient has fever, chills for couple of days. Continue antibiotics. Continue verapamil. Continue Coreg. We will continue gentle diuretics to keep the negative fluid balance. Though BNP is negative, but chest x-ray may have some element of fluid overload. We will try to keep negative fluid balance, prerenal azotemic for better oxygenation. Continue anticoagulation; goal is to keep INR within 2. We will follow with you. We will do the MUGA scan. We will follow with you. Thank you Dr. Shell for providing me the opportunity in taking care of the patient, Ross Vargas. Ron Lawler MD
[2017-07-13] MEDS: Vancomycin 1gm in NS 250ml 1 GM/250 ML BAG IVPB SCH ×2 (05:00→17:15)
[2017-07-13 05:41] LABS: ARTERIAL BLOOD GAS HCO3 42.6 mmol/L (21-28); ARTERIAL BLOOD GAS O2 CONTENT 17.8 ML/dl (15-23); ARTERIAL BLOOD GAS PH 7.38 (7.35-7.45); ARTERIAL BLOOD HGB O2 SAT 96.7 % (95.0-98.0); CARBOXYHEMOGLOBIN 1.6 % (0.5-1.5); METHEMOGLOBIN 0.7 % (0.0-3.0)
[2017-07-13 06:14] LABS: ALKALINE PHOSPHATASE 87 U/L (38-126); ALT/SGPT 33 U/L (7-56); AST/SGOT 59 U/L (17-59); BILIRUBIN,DIRECT 0.6 mg/dL (0.0-0.4); BILIRUBIN,TOTAL 0.6 mg/dL (0.2-1.3); BLOOD UREA NITROGEN 31 mg/dL (7-21); CALCIUM 9.7 mg/dL (8.4-10.5); CHLORIDE 90 mmol/L (98-107); GFR AFRICAN-AMERICAN > 60; GLUCOSE,RANDOM 166 mg/dL (70-110); MAGNESIUM 1.8 mg/dL (1.7-2.2); POTASSIUM 4.7 mmol/L (3.6-5.0); SODIUM 141 mmol/L (132-148); TOTAL PROTEIN 7.9 g/dL (5.8-8.3)
[2017-07-13 06:21] LABS: CARBON DIOXIDE 44 mmol/L (21-33); TROPONIN I 0.04 ng/mL
[2017-07-13 06:24] LABS: INR 2.76 (0.93-1.08); PARTIAL THROMBOPLASTIN TIME 32.6 Seconds (25.1-36.5)
[2017-07-13 06:41] LABS: GRAN # 16.79 (1.4-6.5); GRAN % 93.1 % (50.0-68.0); HEMATOCRIT 40.8 % (42.0-52.0); LYMPH # 0.6 (1.2-3.4); LYMPH % 3.5 % (22.0-35.0); MEAN CELL VOLUME 94.4 fl (80.0-105.0); MEAN CORPUSCULAR HEMOGLOBIN 29.6 pg (25.0-35.0); MEAN CORPUSCULAR HGB CONC 31.4 g/dl (31.0-37.0); MEAN PLATELET VOLUME 9.7 fl (7.0-11.0); MONO # 0.6 (0.1-0.6); MONO % 3.4 % (1.0-6.0); PLATELET COUNT 237 10^3/uL (120.0-450.0); RED CELL DISTRIBUTION WIDTH 15.5 % (11.5-14.5)
[2017-07-13] MEDS: Cefepime IV 2 gm in NS 2 GM/100 ML BAG IVPB SCH ×3 (06:45→21:25)
[2017-07-13] MEDS: Albuterol-Ipratrop 3 mg / 0.5 (3 ml) UD IH SCH ×4 (07:29→20:00)
[2017-07-13] MEDS: Insulin Lispro (humaLOG) LOW Coverage SC SCH ×4 (07:34→22:00)
[2017-07-13 08:35] LABS: ANISOCYTOSIS SLIGHT; BAND 4 % (0-2); NEUTROPHIL 90 % (50.0-70.0); PLATELET ESTIMATE NORMAL (NORMAL)
--- NOTE | 2017-07-13 08:45 | PN ---
DATE: 07/13/2017 SUBJECTIVE: The patient is in 120, ICU CCU bed 5. The patient's overnight and last 24 hours events noted. The patient was extubated yesterday afternoon. The patient was placed on BiPAP. The patient during the night desaturated. The patient has been placed on BiPAP 14/6 with a FiO2 of 40%.. No other adverse events were documented in the nursing notes or physician notes. The patient is in room 120, ICU CCU bed 5. PHYSICAL EXAMINATION: VITAL SIGNS: T-max 98.9. Telemetry shows sinus rhythm, heart rate 84, 96, 92, and 101. The patient's blood pressure 124/87, 130/90, and 114/82; respirations 18-20; O2 sat is high 90s to 100% on BiPAP. HEENT AND NECK: Head: Normocephalic, atraumatic. HEENT examination shows short neck. [place] conjunctivae. Anicteric sclerae. No oropharyngeal lesion. No neck rigidity. CHEST: Kyphosis. Lung examination shows decreased breath sounds. Positive wheezing and rhonchi, which has crackles and rales, which are slightly less than yesterday. CARDIOVASCULAR: Shows S1 and S2, regular rhythm. Positive systolic murmur left sternal border, right second intercostal space. ABDOMEN: Obese, protuberant. GENITALIA: Male. Positive Adler catheter. EXTREMITIES: Shows no pitting edema, no calf tenderness, no Homans' sign. NEUROLOGIC: The patient is alert, awake, and oriented x3. He is able to move upper and lower extremities without assistance. Gait examination is not tested. VASCULAR: Palpable pulses. PSYCHIATRIC: Negative for anxiety or depression. Negative for suicidal or homicidal ideation. Negative for auditory or visual hallucinations. DIAGNOSTIC STUDIES: On 07/13/2017, WBC 18.0, hemoglobin/hematocrit 13.8 and 41, and platelets 237. PT is 31 and INR is 2.76. The patient has been placed on BiPAP setting 14/6, 40% FiO2. The patient's morning ABG on 40% FiO2, pH of 7.38, pCO2 of 72, pO2 of 134, bicarb of 43, and saturation of 99. Sodium 141, potassium 4.7, chloride 90, CO2 is 44, which is elevated, BUN 31, creatinine 0.9, and glucose 166. CPK has gone up to 799. Troponin is 0.04. Hemoglobin A1c is 7.8.... EKG is pending. Chest x-ray is pending. DIAGNOSES: 1. Acute hypercarbic respiratory failure. 2. Status post ventilator dependent acute hypercarbic respiratory failure. 3. Acute exacerbation of chronic obstructive pulmonary disease. 4. Hypoxemia. 5. Systemic inflammatory response syndrome versus possible sepsis. 6. Bilateral multilobar healthcare-associated versus community-acquired pneumonia. 7. Coumadin-dependent atrial fibrillation. 8. Respiratory acidosis and hypercarbia. 9. Metabolic alkalosis. 10. Questionable rhabdomyolysis with elevated CPK. 11. Uncontrolled type 2 diabetes mellitus with hemoglobin A1c of 7.8. 12. Indeterminate troponin. 13. Morbid obesity. 14. Active nicotine addiction and dependence with history of alcohol abuse and dependence. 15. Dilated cardiomyopathy with ejection fraction under 30%. 16. History of noncompliance and signing out against medical advice. 17. Diabetic neuropathy. 18. Dyslipidemia with hypercholesteremia and hypertriglyceridemia. 19. History of sleep apnea. 1. Acute ventilator-dependent respiratory failure. 2. Acute exacerbation of chronic obstructive pulmonary disease with bronchospasm. 3. Acute hypercarbic ventilator-dependent respiratory failure. 4. Tachycardia. 5. Hypertension. 6. Tachycardia. 7. Leukocytosis with granulocytosis. 8. Coumadin-dependent atrial fibrillation. 9. Respiratory acidosis with hypercarbia. 10. Hypercarbic hypoxic respiratory failure. 11. Metabolic alkalosis. 12. Prerenal kidney injury. 13. Hyperglycemia with diabetes mellitus. 14. Hypercalcemia. 15. Hyperphosphatemia. 16. Indeterminate troponin. 17. Proteinuria. 18. Microscope hematuria, bacteriuria. 19. Bilateral upper lobe healthcare-associated ventilator dependent pneumonia. 20. Left bundle-branch block. 21. Severe sepsis with ventilator-dependent respiratory failure secondary to bilateral upper lobe healthcare-associated questionable aspiration pneumonia. 22. Dyslipidemia. 23. Diabetic neuropathy. 24. Dzj-alklahw-liuxbblwv diabetes mellitus. 25. Systolic congestive heart failure. PLAN: At this time, the patient will be continued on serial labs, serial cardiac enzymes ordered. CURRENT MEDICATIONS: 1. Verapamil 40 mg three times a day. 2. Coreg 12.5 mg twice a day. 3. Coumadin 2 mg Saturday, , Saturday, and Saturday. 4. Cymbalta 30 mg at bedtime. 5. The patient is on doxycycline 100 mg IV q. 12 hours. 6. The patient is on DuoNeb nebulizer every 4 hours. 7. The patient is on Humalog sliding scale coverage a.c. and at bedtime. 8. Digoxin 0.125 daily. 9. Lipitor 20 mg daily. 10. Lopid 600 mg twice a day. 11. Cefepime increased to 2 g IV q. 8 hours by infectious disease. 12. Protonix 40 mg IV daily. 13. Singulair 10 mg daily. 14. Solu Medrol 40 mg IV q. 8 hours. 15. Vancomycin 1 g IV q. 12 hours. If the patient stays stable, the patient will be possibly considered for transfer out of the ICU through telemetry if the patient's respiratory and pulmonary status stays stable. Time spent in the entire management is more than 35 minutes. Dictated and electronically signed, not read. Cedrick Shell MD MTDD
--- NOTE | 2017-07-13 09:21 | PN ---
DATE: 07/13/2017 SKIING TEACHER PROGRESS NOTE SUBJECTIVE: The patient is a awake and alert using BiPAP and O2 support. No complaints of respiratory distress. He continues to have some wheezing and as stated above no distress and no chest pain. No fever or chills. No nausea or vomiting. No diarrhea. No abdominal pain. PHYSICAL EXAMINATION: VITAL SIGNS: His temperature is 97.5, pulse is 83, respirations are 20, and BP is 120/70. SKIN: Warm and dry. HEENT: HEAD: Atraumatic and normocephalic. Eyes: Reactive to light. Ears, nose, and throat: Seemed to be within normal limits. NECK: Supple. No JVD. No thyroid enlargement. No lymph nodes. CARDIOVASCULAR: Heart has regular rate and rhythm. Normal S1 and S2. LUNGS: Reveal bilateral wheezing with occasional rhonchi. GASTROINTESTINAL: Abdomen is soft. Decreased bowel sounds, but obese. GENITALIA: Deferred. RECTAL: Deferred. MUSCULOSKELETAL: No joint deformities. EXTREMITIES: Reveal trace lower extremity edema. NEUROLOGICAL: He seemed to be grossly intact. LABORATORY DATA: As far as his laboratories, his white count is 18.0, hemoglobin is 12.8, and hematocrit is 40.8 with platelets of 237,000. The patient's arterial blood gas reveals a pH of 7.38, pCO2 of 72, and pO2 of 134. Sodium is 141, potassium is 4.7, chloride is 90, CO2 of 44 with BUN of 31, creatinine of 0.9, and glucose of 166. IMPRESSION: This patient has acute exacerbation of his chronic obstructive pulmonary disease with hypercapnia and hypoxia. The patient has a history of atrial fibrillation, diabetes, and obesity. There may be a component of obesity hypoventilation syndrome. PLAN: He will continue with BiPAP and O2 support. The patient will get arterial blood gas and chest x-rays daily. He will continue with aggressive pulmonary toilet and he is on doxycycline and cefepime as antibiotics. The patient is getting vancomycin as well. He is on Solu-Medrol as well as Singulair and is getting DuoNeb with bronchodilator. We will continue with aggressive pulmonary toilet, continue to follow closely and treat aggressively along with the other consultants and the primary care doctor. Cristo Pabon MD
[2017-07-13] MEDS ORDERED: Azithromycin 250 MG in Sodium Chloride 0.9% 250 ML IVPB SCH (10:00)
--- NOTE | 2017-07-13 10:11 | CARD ---
APPROVED REPORT EKG Measurement Heart [id number] <Conclusion> Sinus rhythm with occasional premature ventricular complexes Base line artefact Poor RR progression Abnormal ECG Please Repeat
--- NOTE | 2017-07-13 11:47 | PN ---
DATE: 07/13/2017 REASON FOR CONSULTATION AND FOLLOWUP: History of paroxysmal atrial fibrillation, cardiomyopathy, CAD, admitted with respiratory distress, status post intubated, and successfully extubated. SUBJECTIVE: The patient is lying on the easy chair, in ICU 128, bed 5. Denies any chest pain, shortness of breath, or any palpitation. OBJECTIVE: GENERAL: Not in apparent distress, on CPAP. VITAL SIGNS: As follows: Temperature afebrile, heart rate 75, and blood pressure 141/75. HEENT: PERRLA. Extraocular muscles intact. NECK: Supple. No carotid bruits or thyromegaly. CHEST: Clear to auscultation. HEART: S1 and S2 regular. ABDOMEN: Soft. EXTREMITIES: Clubbing and cyanosis negative. LABORATORY DATA: Blood workup as follows: WBC 18, hemoglobin 12.8, hematocrit of 40.8, and platelet count 237. Chemistry shows sodium 141, potassium 4.7, chloride 90, carbon dioxide 44, anion gap of 12, BUN 31, and creatinine 0.7. IMPRESSION: Respiratory failure; respiratory distress; status post intubated and successfully extubated; so far no evidence of acute coronary syndrome; active tobacco abuse; history of alcohol abuse; history of cardiac catheterization; normal coronaries; and decreased left ventricular function. Most recent echo shows ejection fraction 15% to 20% dated 12/10/2016, prior to that echo shows around 30% to 35% ejection fraction. RECOMMENDATIONS: Aggressively treat COPD. Continue gentle diuretics. Continue anticoagulation because the patient has a history of going back into AFib, though the patient is currently in normal sinus. INR is 2.76 today. We will hold Coumadin if the INR goes above 3. We will check INR tomorrow. We will get the MUGA scan to assess LV function. Continue digoxin. Continue atorvastatin. Continue verapamil p.r.n. and gentle diuretics. We will follow with you. We will give one dose of Lasix IV and then put Lasix 40 from tomorrow. Ron Lawler MD
--- NOTE | 2017-07-13 13:09 | CP.PCM.PN ---
Subjective - Date & Time of Evaluation Date of Evaluation: 07/13/17 Time of Evaluation: 07:30 - Subjective Subjective: Patient is comfortable on a BiPA, now extubated, no fevers overnight, breathing a little better today. Objective - Vital Signs/Intake and Output Vital Signs (last 24 hours): Temp Pulse Resp BP Pulse Ox 97.5 F L 74 35 H 149/83 98 07/13/17 04:00 07/13/17 05:44 07/13/17 05:10 07/13/17 05:05 07/13/17 05:10 Intake and Output: 07/12/17 07/13/17 18:59 06:59 Intake Total 395 Output Total 550 Balance -155 - Medications Medications: Current Medications Atorvastatin Calcium (Lipitor) 20 mg PO DIN [facility] Last Admin: 07/12/17 16:30 Dose: 20 mg Carvedilol (Coreg) 12.5 mg PO BID [facility] Last Admin: 07/12/17 17:13 Dose: 12.5 mg Digoxin (Lanoxin) 0.125 mg PO 1400 [facility] Last Admin: 07/12/17 13:53 Dose: 0.125 mg Duloxetine HCl (Cymbalta) 30 mg PO DAILY [facility] Last Admin: 07/12/17 09:45 Dose: 30 mg Gemfibrozil (Lopid) 600 mg PO BID [facility] Last Admin: 07/12/17 17:14 Dose: 600 mg Heparin Sodium (Porcine) (Heparin) 5,000 units SC Q8H [facility] PRN Reason: Protocol Last Admin: 07/13/17 05:46 Dose: 5,000 units Propofol (Diprivan) 1,000 mg in 100 mls @ 3.119 mls/hr IV .Q24H PRN; Protocol; 5 MCG/KG/MIN PRN Reason: TITRATE PER MD ORDER Last Titration: 07/12/17 08:00 Dose: 0 mcg/kg/min, 0 mls/hr Cefepime HCl (Maxipime 2gm) 2 gm in 100 mls @ 100 mls/hr IVPB Q8 [facility] PRN Reason: Protocol Stop: 07/17/17 14:01 Last Admin: 07/12/17 21:18 Dose: 100 mls/hr Doxycycline Hyclate 100 mg/ (Sodium Chloride) 100 mls @ 100 mls/hr IVPB Q12 [facility] PRN Reason: Protocol Last Admin: 07/12/17 22:54 Dose: 100 mls/hr Vancomycin HCl (Vancomycin 1gm) 1 gm in 250 mls @ 167 mls/hr IVPB Q12H [facility] PRN Reason: Protocol Last Admin: 07/13/17 05:00 Dose: 167 mls/hr Insulin Human Lispro (Humalog Low) 0 units SC ACHS [facility] PRN Reason: Protocol Last Admin: 07/12/17 22:45 Dose: Not Given Methylprednisolone (Solu-Medrol) 40 mg IVP Q8H [facility] Last Admin: 07/13/17 03:05 Dose: 40 mg Montelukast Sodium (Singulair) 10 mg PO DAILY [facility] Last Admin: 07/12/17 09:45 Dose: 10 mg Pantoprazole Sodium (Protonix Inj) 40 mg IVP DAILY [facility] Last Admin: 07/12/17 09:45 Dose: 40 mg Verapamil HCl (Calan Tab) 40 mg PO TID [facility] Last Admin: 07/12/17 17:08 Dose: 40 mg Warfarin Sodium (Coumadin) 2 mg PO QOTHERDAY [facility] PRN Reason: Protocol Last Admin: 07/12/17 17:13 Dose: 2 mg - Labs Labs: PT 20.5 SECONDS (9.4-12.5) H 07/12/17 03:35 INR 1.86 (0.93-1.08) H 07/12/17 03:35 APTT 38.3 Seconds (25.1-36.5) H 07/12/17 03:35 - Constitutional Appears: Other (on BIPAP) - Head Exam Head Exam: NORMAL INSPECTION - ENT Exam ENT Exam: Mucous Membranes Moist - Neck Exam Neck Exam: absent: Meningismus - Respiratory Exam Respiratory Exam: Decreased Breath Sounds. absent: Wheezes - Cardiovascular Exam Cardiovascular Exam: +S1, +S2 Assessment and Plan - Assessment and Plan (Free Text) Plan: Assessment Consider severe sepsis with ventilator-dependent respiratory failure probably due to severe upper lobe pneumonia on top of COPD exacerbation and CHF, now extubatred history of ESBL E. coli HCAP in 2014 CHF with EF 25% COPD history of ESBL E. coli pneumonia in 04/2015 history of recent NSTEMI atrial fibrillation on anticoagulation DM history of alcohol abuse Plan continue Cefepime, IV Vancomycin and Doxycycline day pending final blood, sputum cx, PCT; CXR reviewed which showed upper lobe infiltrates Will continue to monitor clinically discussed with Dr. Shell previously
[2017-07-13] MEDS: Digoxin 125 mcg (0.125 mg) Tab PO SCH (14:07)
[2017-07-14] MEDS: Albuterol-Ipratrop 3 mg / 0.5 (3 ml) UD IH SCH ×6 (00:05→19:53)
[2017-07-14] MEDS: MethylPREDNISolone 40 mg Vial IVP SCH ×3 (02:39→17:10)
[2017-07-14] MEDS: Vancomycin 1gm in NS 250ml 1 GM/250 ML BAG IVPB SCH ×2 (05:45→17:12)
[2017-07-14 05:59] LABS: GRAN # 14.47 (1.4-6.5); GRAN % 91.7 % (50.0-68.0); HEMATOCRIT 40.7 % (42.0-52.0); LYMPH # 0.6 (1.2-3.4); LYMPH % 3.9 % (22.0-35.0); MEAN CORPUSCULAR HEMOGLOBIN 29.6 pg (25.0-35.0); MEAN CORPUSCULAR HGB CONC 31.4 g/dl (31.0-37.0); MEAN PLATELET VOLUME 10.1 fl (7.0-11.0); MONO # 0.7 (0.1-0.6); MONO % 4.4 % (1.0-6.0); RED CELL DISTRIBUTION WIDTH 15.3 % (11.5-14.5); WHITE BLOOD COUNT 15.8 10^3/ul (4.5-11.0)
[2017-07-14 06:08] LABS: ALB/GLOB RATIO 1.1 (1.1-1.8); ALKALINE PHOSPHATASE 77 U/L (38-126); ALT/SGPT 34 U/L (7-56); AST/SGOT 52 U/L (17-59); BILIRUBIN,DIRECT 0.6 mg/dL (0.0-0.4); BILIRUBIN,TOTAL 0.7 mg/dL (0.2-1.3); BLOOD UREA NITROGEN 43 mg/dL (7-21); CALCIUM 9.6 mg/dL (8.4-10.5); CHLORIDE 89 mmol/L (98-107); GFR AFRICAN-AMERICAN > 60; GLUCOSE,RANDOM 160 mg/dL (70-110); MAGNESIUM 1.7 mg/dL (1.7-2.2); POTASSIUM 4.4 mmol/L (3.6-5.0); SODIUM 137 mmol/L (132-148); TOTAL PROTEIN 7.8 g/dL (5.8-8.3)
[2017-07-14 06:11] LABS: INR 3.06 (0.93-1.08); PARTIAL THROMBOPLASTIN TIME 34.4 Seconds (25.1-36.5)
[2017-07-14 06:14] LABS: CARBON DIOXIDE 40 mmol/L (21-33)
[2017-07-14] MEDS: Pantoprazole 40 mg EC Tab PO SCH (06:18)
[2017-07-14 06:19] LABS: TROPONIN I 0.03 ng/mL
[2017-07-14 06:24] LABS: ARTERIAL BLOOD GAS HCO3 37.6 mmol/L (21-28); ARTERIAL BLOOD GAS O2 CAPACITY 18.1 mL/dl (16-24); ARTERIAL BLOOD GAS O2 CONTENT 16.8 ML/dl (15-23); ARTERIAL BLOOD GAS PH 7.42 (7.35-7.45); CARBOXYHEMOGLOBIN 2.3 % (0.5-1.5); HHB 7.1 % (0-5); METHEMOGLOBIN 0.7 % (0.0-3.0)
[2017-07-14] MEDS: Cefepime IV 2 gm in NS 2 GM/100 ML BAG IVPB SCH ×3 (06:27→22:06)
[2017-07-14] MEDS: Insulin Lispro (humaLOG) LOW Coverage SC SCH ×4 (08:09→22:06)
--- NOTE | 2017-07-14 11:18 | PN ---
DATE: 07/14/2017 REASON FOR CONSULTATION AND FOLLOWUP: History of paroxysmal atrial fibrillation, cardiomyopathy, CAD, admitted with respiratory distress, status post intubated, and successfully extubated. SUBJECTIVE: The patient is sitting at the bedside. Denies any chest pain, shortness of breath, or any palpitation. OBJECTIVE: GENERAL: Not in apparent distress. Off CPAP. VITAL SIGNS: As follows; temperature afebrile, heart rate 83, and blood pressure 114/73. HEENT: PERRLA intact. NECK: Supple. No carotid bruits or thyromegaly. CHEST: Clear to auscultation. HEART: S1 and S2 regular. ABDOMEN: Soft. EXTREMITIES: Clubbing and cyanosis negative. LABORATORY DATA: Blood workup as follows; WBC 15.2, hemoglobin 12.8, hematocrit 40.7, and platelet count 243. Chemistry shows sodium 137, potassium 4.4, chloride 97, carbon dioxide 40, anion gap of 12, BUN 43, and creatinine 1.0. Troponin 0.03. IMPRESSION: Obesity, nonischemic cardiomyopathy, status post cardiac catheterization, nonobstructive coronary artery disease, chronic obstructive pulmonary disease, status post intubated and successfully extubated. Last echo shows ejection 15% to 20%, noncompliance with medications. Active tobacco abuse. Prior echo shows ejection fraction 35%. RECOMMENDATIONS: I will treat COPD. Continue anticoagulation for paroxysmal atrial fibrillation, keep INR between 2 to 2.5. Today INR is 3.06 and hold Coumadin. Repeat INR tomorrow. Continue Coreg. Continue verapamil and p.r.n. diuretics. I will get the MUGA scan to assist LV function. We will follow with you. Thank you Dr. Weir for providing us the opportunity in taking care of Ross Vargas. Ron Lawler MD
[2017-07-14] MEDS: Digoxin 125 mcg (0.125 mg) Tab PO SCH (13:33)
--- NOTE | 2017-07-14 13:57 | CP.PCM.PN ---
Subjective - Date & Time of Evaluation Date of Evaluation: 07/14/17 Time of Evaluation: 09:50 - Subjective Subjective: Breathing a little better today, now of BiPAP, no fevers overnight, less cough, no vomiting, no diarrhea. Objective - Vital Signs/Intake and Output Vital Signs (last 24 hours): Temp Pulse Resp BP Pulse Ox 98.3 F 79 31 H 125/69 89 L 07/13/17 20:00 07/14/17 03:02 07/14/17 03:02 07/14/17 03:02 07/14/17 03:02 - Medications Medications: Current Medications Albuterol/Ipratropium (Duoneb 3 Mg/0.5 Mg (3 Ml) Ud) 3 ml IH [id number] [facility] Last Admin: 07/14/17 03:17 Dose: 3 ml Atorvastatin Calcium (Lipitor) 20 mg PO DIN [facility] Last Admin: 07/13/17 17:13 Dose: 20 mg Carvedilol (Coreg) 12.5 mg PO BID [facility] Last Admin: 07/13/17 17:16 Dose: 12.5 mg Digoxin (Lanoxin) 0.125 mg PO 1400 [facility] Last Admin: 07/13/17 14:07 Dose: 0.125 mg Duloxetine HCl (Cymbalta) 30 mg PO DAILY [facility] Last Admin: 07/13/17 09:17 Dose: 30 mg Furosemide (Lasix) 40 mg PO 0800,1400 [facility] Last Admin: 07/13/17 14:09 Dose: 40 mg Gemfibrozil (Lopid) 600 mg PO BID [facility] Last Admin: 07/13/17 17:13 Dose: 600 mg Propofol (Diprivan) 1,000 mg in 100 mls @ 3.119 mls/hr IV .Q24H PRN; Protocol; 5 MCG/KG/MIN PRN Reason: TITRATE PER MD ORDER Last Titration: 07/12/17 08:00 Dose: 0 mcg/kg/min, 0 mls/hr Cefepime HCl (Maxipime 2gm) 2 gm in 100 mls @ 100 mls/hr IVPB Q8 [facility] PRN Reason: Protocol Stop: 07/17/17 14:01 Last Admin: 07/14/17 06:27 Dose: 100 mls/hr Doxycycline Hyclate 100 mg/ (Sodium Chloride) 100 mls @ 100 mls/hr IVPB Q12 [facility] PRN Reason: Protocol Last Admin: 07/13/17 23:00 Dose: 100 mls/hr Vancomycin HCl (Vancomycin 1gm) 1 gm in 250 mls @ 167 mls/hr IVPB Q12H [facility] PRN Reason: Protocol Last Admin: 07/14/17 05:45 Dose: 167 mls/hr Insulin Human Lispro (Humalog Low) 0 units SC ACHS [facility] PRN Reason: Protocol Last Admin: 07/13/17 22:00 Dose: Not Given Methylprednisolone (Solu-Medrol) 40 mg IVP Q8H [facility] Last Admin: 07/14/17 02:39 Dose: 40 mg Montelukast Sodium (Singulair) 10 mg PO DAILY [facility] Last Admin: 07/13/17 09:17 Dose: 10 mg Pantoprazole Sodium (Protonix Ec Tab) 40 mg PO 0600 [facility] Last Admin: 07/14/17 06:18 Dose: 40 mg Verapamil HCl (Calan Tab) 40 mg PO TID [facility] Last Admin: 07/13/17 17:12 Dose: 40 mg Warfarin Sodium (Coumadin) 2 mg PO QOTHERDAY [facility] PRN Reason: Protocol Last Admin: 07/12/17 17:13 Dose: 2 mg - Labs Labs: 07/14/17 05:30 07/14/17 05:30 PT 34.4 SECONDS (9.4-12.5) H 07/14/17 05:30 INR 3.06 (0.93-1.08) H 07/14/17 05:30 APTT 34.4 Seconds (25.1-36.5) 07/14/17 05:30 - Constitutional Appears: Non-toxic - Head Exam Head Exam: NORMAL INSPECTION - ENT Exam ENT Exam: Mucous Membranes Moist - Neck Exam Neck Exam: absent: Lymphadenopathy, Meningismus - Respiratory Exam Respiratory Exam: Decreased Breath Sounds - Cardiovascular Exam Cardiovascular Exam: +S1, +S2 - GI/Abdominal Exam GI & Abdominal Exam: Soft. absent: Tenderness Assessment and Plan - Assessment and Plan (Free Text) Plan: Assessment Consider severe sepsis probably due to severe upper lobe pneumonia on top of COPD exacerbation and CHF, now extubatred history of ESBL E. coli HCAP in 2014 CHF with EF 25% COPD history of ESBL E. coli pneumonia in 04/2015 history of recent NSTEMI atrial fibrillation on anticoagulation DM history of alcohol abuse Plan continue Cefepime, IV Vancomycin and Doxycycline day 3 - should complete 4-7 days of therapy; CXR reviewed which showed upper lobe infiltrates Will continue to monitor clinically discussed with Dr. Shell previously
[2017-07-15] MEDS: Albuterol-Ipratrop 3 mg / 0.5 (3 ml) UD IH SCH ×3 (00:53→07:21)
[2017-07-15] MEDS: MethylPREDNISolone 40 mg Vial IVP SCH ×3 (01:40→17:32)
[2017-07-15] MEDS: Vancomycin 1gm in NS 250ml 1 GM/250 ML BAG IVPB SCH ×2 (04:56→17:32)
[2017-07-15] MEDS: Cefepime IV 2 gm in NS 2 GM/100 ML BAG IVPB SCH ×3 (05:02→22:17)
[2017-07-15] MEDS: Pantoprazole 40 mg EC Tab PO SCH (05:03)
[2017-07-15 06:33] LABS: GRAN # 12.54 (1.4-6.5); GRAN % 91.1 % (50.0-68.0); HEMATOCRIT 41.1 % (42.0-52.0); LYMPH # 0.6 (1.2-3.4); LYMPH % 4.1 % (22.0-35.0); MEAN CELL VOLUME 94.3 fl (80.0-105.0); MEAN CORPUSCULAR HEMOGLOBIN 28.9 pg (25.0-35.0); MEAN CORPUSCULAR HGB CONC 30.7 g/dl (31.0-37.0); MONO # 0.7 (0.1-0.6); MONO % 4.8 % (1.0-6.0); RED CELL DISTRIBUTION WIDTH 15.6 % (11.5-14.5); WHITE BLOOD COUNT 13.8 10^3/ul (4.5-11.0)
[2017-07-15 06:43] LABS: INR 2.53 (0.93-1.08); PARTIAL THROMBOPLASTIN TIME 31.4 Seconds (25.1-36.5)
[2017-07-15 06:47] LABS: ALB/GLOB RATIO 1.1 (1.1-1.8); ALKALINE PHOSPHATASE 63 U/L (38-126); ALT/SGPT 40 U/L (7-56); AST/SGOT 35 U/L (17-59); BILIRUBIN,DIRECT 0.5 mg/dL (0.0-0.4); BILIRUBIN,TOTAL 0.5 mg/dL (0.2-1.3); BLOOD UREA NITROGEN 37 mg/dL (7-21); CALCIUM 8.9 mg/dL (8.4-10.5); CARBON DIOXIDE 39 mmol/L (21-33); CHLORIDE 95 mmol/L (98-107); GFR AFRICAN-AMERICAN > 60; GLUCOSE,RANDOM 162 mg/dL (70-110); MAGNESIUM 1.7 mg/dL (1.7-2.2); POTASSIUM 4.3 mmol/L (3.6-5.0); SODIUM 141 mmol/L (132-148); TOTAL PROTEIN 7.3 g/dL (5.8-8.3)
[2017-07-15 06:57] LABS: TROPONIN I 0.03 ng/mL
[2017-07-15] MEDS: Insulin Lispro (humaLOG) LOW Coverage SC SCH ×3 (08:27→17:26)
--- NOTE | 2017-07-15 09:00 | CARD ---
APPROVED REPORT EKG Measurement Heart [id number] [place] [id number] [id number] <Conclusion> Sinus bradycardia with premature atrial complexes Incomplete left bundle branch block Borderline ECG
--- NOTE | 2017-07-15 09:13 | CP.PCM.PN ---
Subjective - Date & Time of Evaluation Date of Evaluation: 07/15/17 Time of Evaluation: 09:10 - Subjective Subjective: PGY-2 Progress note for Cassy Shell's service Patient seen and examined at bedside. No acute distress. Patient is getting breathing treatment during examination. Patient states that he is feeling better. He denies chest pain, fever, chills, cough and sob. Objective - Vital Signs/Intake and Output Vital Signs (last 24 hours): Temp Pulse Resp BP Pulse Ox 97.6 F 66 20 138/78 99 07/15/17 06:00 07/15/17 06:00 07/15/17 06:00 07/15/17 06:00 07/15/17 06:00 Intake and Output: 07/15/17 07/15/17 06:59 18:59 Intake Total 450 Output Total 650 Balance 450 -650 - Medications Medications: Current Medications Albuterol/Ipratropium (Duoneb 3 Mg/0.5 Mg (3 Ml) Ud) 3 ml IH [id number] [facility] Last Admin: 07/15/17 07:21 Dose: 3 ml Atorvastatin Calcium (Lipitor) 20 mg PO DIN [facility] Last Admin: 07/14/17 17:08 Dose: 20 mg Carvedilol (Coreg) 12.5 mg PO BID [facility] Last Admin: 07/14/17 17:08 Dose: 12.5 mg Digoxin (Lanoxin) 0.125 mg PO 1400 [facility] Last Admin: 07/14/17 13:33 Dose: 0.125 mg Duloxetine HCl (Cymbalta) 30 mg PO DAILY [facility] Last Admin: 07/14/17 09:39 Dose: 30 mg Furosemide (Lasix) 40 mg PO 0800,1400 [facility] Last Admin: 07/15/17 08:27 Dose: Not Given Gemfibrozil (Lopid) 600 mg PO BID [facility] Last Admin: 07/14/17 17:08 Dose: 600 mg Propofol (Diprivan) 1,000 mg in 100 mls @ 3.119 mls/hr IV .Q24H PRN; Protocol; 5 MCG/KG/MIN PRN Reason: TITRATE PER MD ORDER Last Titration: 07/12/17 08:00 Dose: 0 mcg/kg/min, 0 mls/hr Cefepime HCl (Maxipime 2gm) 2 gm in 100 mls @ 100 mls/hr IVPB Q8 [facility] PRN Reason: Protocol Stop: 07/17/17 14:01 Last Admin: 07/15/17 05:02 Dose: 100 mls/hr Doxycycline Hyclate 100 mg/ (Sodium Chloride) 100 mls @ 100 mls/hr IVPB Q12 [facility] PRN Reason: Protocol Last Admin: 07/14/17 22:07 Dose: 100 mls/hr Vancomycin HCl (Vancomycin 1gm) 1 gm in 250 mls @ 167 mls/hr IVPB Q12H [facility] PRN Reason: Protocol Last Admin: 07/15/17 04:56 Dose: 167 mls/hr Insulin Human Lispro (Humalog Low) 0 units SC ACHS [facility] PRN Reason: Protocol Last Admin: 07/15/17 08:27 Dose: Not Given Methylprednisolone (Solu-Medrol) 40 mg IVP Q8H [facility] Last Admin: 07/15/17 01:40 Dose: 40 mg Montelukast Sodium (Singulair) 10 mg PO DAILY [facility] Last Admin: 07/14/17 09:39 Dose: 10 mg Pantoprazole Sodium (Protonix Ec Tab) 40 mg PO 0600 [facility] Last Admin: 07/15/17 05:03 Dose: Not Given Verapamil HCl (Calan Tab) 40 mg PO TID [facility] Last Admin: 07/14/17 17:07 Dose: 40 mg Warfarin Sodium (Coumadin) 2 mg PO Q48H [facility] PRN Reason: Protocol - Labs Labs: 07/15/17 05:30 07/15/17 05:30 PT 28.4 SECONDS (9.4-12.5) H 07/15/17 05:30 INR 2.53 (0.93-1.08) H 07/15/17 05:30 APTT 31.4 Seconds (25.1-36.5) 07/15/17 05:30 - Constitutional Appears: Well, No Acute Distress - Head Exam Head Exam: ATRAUMATIC, NORMAL INSPECTION, NORMOCEPHALIC - Eye Exam Eye Exam: EOMI, Normal appearance - ENT Exam ENT Exam: Mucous Membranes Moist - Respiratory Exam Respiratory Exam: Wheezes, NORMAL BREATHING PATTERN. absent: Decreased Breath Sounds, Respiratory Distress - GI/Abdominal Exam GI & Abdominal Exam: Soft. absent: Distended, Firm, Tenderness - Extremities Exam Extremities Exam: Full ROM, Normal Inspection. absent: Pedal Edema - Back Exam Back Exam: NORMAL INSPECTION - Neurological Exam Neurological Exam: Alert, Awake, Oriented x3 - Skin Skin Exam: Dry, Intact, Normal Color, Warm Assessment and Plan - Assessment and Plan (Free Text) Assessment: 52 year old male with past medical history of COPD, CHF, Afib on coumadin, CAD, HTN, DM presents to the ED for shortness of breath and productive cough found to have respiratory failure due to COPD exacerbation. Patient required intubation. He has been extubated and transferred out of the ICU. Plan: 1. acute hypercapnic respiratory failure - due to COPD exacerbation and pna - improved, s/p extubated - cont soulmedrol 40mg Q8H - xopenex q4H - Continue antibiotics: vancomycin, Cefepime, doxycycline day 4 - ID following, recommend 4-7 days of therapy 2. Sepsis - etiology most likely PNA - afebrile, Leukocytosis improving - blood culture negative - sputum cx- negative - urine cx- negative - procal not elevated - Continue antibiotics: vancomycin, Cefepime, doxycycline day 4 - ID following 3. a. fib - heart rate controlled - INR 2.53, therapeutic - continue on coumadin 2mg q48 hours - continue digoxin, coreg 4. HTN, - controlled - Continue Coreg 12.5mg BID, Verapamil 40mg TID - Continue Digoxin 0.125mg 5. systolic CHF - Previous echo shows EF of 15-20% - MUGA scan pending - Continue Lipitor 20mg, Gemfibrizol 600mg BID - cardiology following 6. History of DM - on Glimeperide at home - ISS- low - Target blood sugars 140-180 - Accuchecks ACHS GI/DVT ppx -Protonix -Heparin
--- NOTE | 2017-07-15 10:11 | PN ---
DATE: 07/14/2017 SUBJECTIVE: The patient is now transferred to telemetry 261, bed 1. The patient was transferred out of the ICU this morning to telemetry. The patient is seen lying in the bed. The patient is comfortable watching TV, no distress noted. The patient complains of some questionable insomnia. The patient denies any chest pain, shortness of breath. Denies nausea, vomiting, diarrhea or constipation. Denies hemoptysis, hematemesis, or melena. Overnight nurse's notes were reviewed. PHYSICAL EXAMINATION: VITAL SIGNS: T-max 98; telemetry shows normal sinus rhythm, heart rate ranging between 67-87; blood pressure 117/75 to 114/73; respiratory rate 20-26 beats per minute; O2 sat was 94, 93, 97, 95, on BiPAP and nasal cannula supplement. HEENT: Head examination, normocephalic and atraumatic. HEENT examination shows pinkish conjunctivae. Anicteric sclerae. NECK: No neck rigidity. Neck is short and supple. CHEST: Kyphosis. LUNGS: Examination shows decreased air entry. Positive rhonchi. Decreased wheezing. Decreased crackles and rales. CARDIOVASCULAR: S1, S2, regular rhythm. Questionable soft systolic murmur, right second intercostal space, left second intercostal space, left sternal border. ABDOMEN: Obese, protuberant. Positive bowel sounds. GENITALIA: Male. RECTAL: Examination is deferred. EXTREMITIES: Shows trace swelling. No pitting edema. No calf tenderness. No Homans' sign. MUSCULOSKELETAL: Examination shows elevated body mass index of greater than 35. NEUROLOGIC: The patient is alert, awake, and oriented x3. Cranial nerves II-XII intact. Gait examination is not tested. VASCULAR: Palpable pulses. DIAGNOSTICS: 07/14/2017; WBC 15.8, hemoglobin/hematocrit 12.8/41, platelet 243. Granulocytes, 91% segs, 4 bands. Chemistry: Sodium 137, potassium 4.4, chloride 89, CO2 of 40, BUN 43, creatinine 1.0, glucose 160. PT is 34.4, INR 3.06. ABG on 32% FiO2; pH of 7.42, pCO2 of 55, pO2 of 56, bicarb 38, saturation of 93% on 32%. CPK is 515. Troponin, all three sets from yesterday 0.05, 0.04, and 0.03 which is the latest one. Blood cultures, urine cultures, MRSA cultures, and sputum cultures are all negative at this time. IMPRESSION: 1. Status post ventilator-dependent respiratory failure. 2. Status post hypercarbic hypoxic respiratory failure. 3. Respiratory acidosis with hypoxemia. 4. Questionable sepsis versus systemic inflammatory response syndrome with bilateral upper lobe questionable community-acquired versus healthcare-associated possible aspiration pneumonia. 5. Asymptomatic nonsustained ventricular tachycardia. 6. History of paroxysmal atrial fibrillation. 7. Hypoxemia. 8. Leukocytosis with granulocytosis and bandemia. 9. Normocytic anemia. 10. Hypochloremic metabolic alkalosis. 11. Prerenal kidney injury. 12. Cdi-euvlazl-mizfajeea diabetes mellitus. 13. Coumadin-dependent atrial fibrillation with mildly elevated PT and INR. 14. Hypercarbia. 15. Questionable mild rhabdomyolysis. 16. Indeterminate troponin. 17. Acute exacerbation of chronic obstructive pulmonary disease with bronchospasm, slowly resolving. 18. Active nicotine addiction and dependence. 19. Morbid obesity with elevated body mass index of 35. 20. History of noncompliance. 21. History of paroxysmal atrial fibrillation. 22. Hypovitaminosis D. 23. Diabetic neuropathy. 24. Dilated cardiomyopathy with ejection fraction of less than 20%. 25. Dyslipidemia with hyperlipidemia and hypertriglyceridemia. 1. Acute hypercarbic respiratory failure. 2. Status post ventilator dependent acute hypercarbic respiratory failure. 3. Acute exacerbation of chronic obstructive pulmonary disease. 4. Hypoxemia. 5. Systemic inflammatory response syndrome versus possible sepsis. 6. Bilateral multilobar healthcare-associated versus community-acquired pneumonia. 7. Coumadin-dependent atrial fibrillation. 8. Respiratory acidosis and hypercarbia. 9. Metabolic alkalosis. 10. Questionable rhabdomyolysis with elevated CPK. 11. Uncontrolled type 2 diabetes mellitus with hemoglobin A1c of 7.8. 12. Indeterminate troponin. 13. Morbid obesity. 14. Active nicotine addiction and dependence with history of alcohol abuse and dependence. 15. Dilated cardiomyopathy with ejection fraction under 30%. 16. History of noncompliance and signing out against medical advice. 17. Diabetic neuropathy. 18. Dyslipidemia with hypercholesteremia and hypertriglyceridemia. 19. History of sleep apnea. 1. Acute ventilator-dependent respiratory failure. 2. Acute exacerbation of chronic obstructive pulmonary disease with bronchospasm. 3. Acute hypercarbic ventilator-dependent respiratory failure. 4. Tachycardia. 5. Hypertension. 6. Tachycardia. 7. Leukocytosis with granulocytosis. 8. Coumadin-dependent atrial fibrillation. 9. Respiratory acidosis with hypercarbia. 10. Hypercarbic hypoxic respiratory failure. 11. Metabolic alkalosis. 12. Prerenal kidney injury. 13. Hyperglycemia with diabetes mellitus. 14. Hypercalcemia. 15. Hyperphosphatemia. 16. Indeterminate troponin. 17. Proteinuria. 18. Microscope hematuria, bacteriuria. 19. Bilateral upper lobe healthcare-associated ventilator dependent pneumonia. 20. Left bundle-branch block. 21. Severe sepsis with ventilator-dependent respiratory failure secondary to bilateral upper lobe healthcare-associated questionable aspiration pneumonia. 22. Dyslipidemia. 23. Diabetic neuropathy. 24. Sdk-ybbpyeg-neogjyfbm diabetes mellitus. 25. Systolic congestive heart failure. PLAN: At this time, the patient is to be continued on telemetry. The patient has been ordered Calan 40 mg 3 times a day; Coreg 12.5 mg twice a day; Coumadin 2 mg every 48 hours, today's dose has been held; and Cymbalta 30 mg at bedtime. The patient is on doxycycline 100 mg IV q. 12. The patient is on DuoNeb nebulizer every 6 hours sliding scale coverage, digoxin 0.125 mg p.o. daily, Lasix 40 mg p.o. twice a day, Lipitor 20 mg at bedtime, Lopid 600 mg twice a day, Maxipime 2 g IV q. 8, Protonix 40 mg daily for GI prophylaxis, Singulair 10 mg at bedtime, Solu-Medrol 40 mg IV q. 8,and vancomycin 1 g IV q. 12. The patient has been ordered out of bed to chair. The patient has been ordered and counseled about cessation of smoking. The patient has been advised cessation of smoking and weight loss. At present, the patient is seen in room 261, bed 1. The patient's further management will be dependent upon the patient's clinical condition, hemodynamic status and as per the patient response to therapeutic intervention, as per the patient's diagnostic test results, and as per recommendation by all the physicians involved in the care of the patient. Dictated and electronically signed, not read. Signing off; Cedrick Shell MD [facility]
[2017-07-15] MEDS: Acetylcysteine 20% Inhal Soln (4ml) IH SCH ×6 (11:03→22:28)
[2017-07-15] MEDS: Levalbuterol 0.63 MG/3 ML Inhal Soln UD IH SCH ×6 (11:03→22:28)
--- NOTE | 2017-07-15 11:16 | CARD ---
APPROVED REPORT EKG Measurement Heart [id number] <Conclusion> Sinus rhythm with occasional premature ventricular complexes Nonspecific intraventricular conduction delay Borderline ECG
--- NOTE | 2017-07-15 11:56 | CP.PCM.PN ---
Subjective - Date & Time of Evaluation Date of Evaluation: 07/15/17 Time of Evaluation: 08:40 - Subjective Subjective: Comfortable, breathing better, no fevers overnight. Objective - Vital Signs/Intake and Output Vital Signs (last 24 hours): Temp Pulse Resp BP Pulse Ox 97.6 F 66 20 138/78 99 07/15/17 06:00 07/15/17 06:00 07/15/17 06:00 07/15/17 06:00 07/15/17 06:00 Intake and Output: 07/15/17 07/15/17 06:59 18:59 Intake Total 450 Balance 450 - Medications Medications: Current Medications Albuterol/Ipratropium (Duoneb 3 Mg/0.5 Mg (3 Ml) Ud) 3 ml IH Q3ZZION [facility] Last Admin: 07/15/17 04:36 Dose: 3 ml Atorvastatin Calcium (Lipitor) 20 mg PO DIN [facility] Last Admin: 07/14/17 17:08 Dose: 20 mg Carvedilol (Coreg) 12.5 mg PO BID [facility] Last Admin: 07/14/17 17:08 Dose: 12.5 mg Digoxin (Lanoxin) 0.125 mg PO 1400 [facility] Last Admin: 07/14/17 13:33 Dose: 0.125 mg Duloxetine HCl (Cymbalta) 30 mg PO DAILY [facility] Last Admin: 07/14/17 09:39 Dose: 30 mg Furosemide (Lasix) 40 mg PO 0800,1400 [facility] Last Admin: 07/14/17 13:33 Dose: 40 mg Gemfibrozil (Lopid) 600 mg PO BID [facility] Last Admin: 07/14/17 17:08 Dose: 600 mg Propofol (Diprivan) 1,000 mg in 100 mls @ 3.119 mls/hr IV .Q24H PRN; Protocol; 5 MCG/KG/MIN PRN Reason: TITRATE PER MD ORDER Last Titration: 07/12/17 08:00 Dose: 0 mcg/kg/min, 0 mls/hr Cefepime HCl (Maxipime 2gm) 2 gm in 100 mls @ 100 mls/hr IVPB Q8 [facility] PRN Reason: Protocol Stop: 07/17/17 14:01 Last Admin: 07/15/17 05:02 Dose: 100 mls/hr Doxycycline Hyclate 100 mg/ (Sodium Chloride) 100 mls @ 100 mls/hr IVPB Q12 [facility] PRN Reason: Protocol Last Admin: 07/14/17 22:07 Dose: 100 mls/hr Vancomycin HCl (Vancomycin 1gm) 1 gm in 250 mls @ 167 mls/hr IVPB Q12H [facility] PRN Reason: Protocol Last Admin: 07/15/17 04:56 Dose: 167 mls/hr Insulin Human Lispro (Humalog Low) 0 units SC ACHS [facility] PRN Reason: Protocol Last Admin: 07/14/17 22:06 Dose: 2 units Methylprednisolone (Solu-Medrol) 40 mg IVP Q8H [facility] Last Admin: 07/15/17 01:40 Dose: 40 mg Montelukast Sodium (Singulair) 10 mg PO DAILY [facility] Last Admin: 07/14/17 09:39 Dose: 10 mg Pantoprazole Sodium (Protonix Ec Tab) 40 mg PO 0600 [facility] Last Admin: 07/15/17 05:03 Dose: Not Given Verapamil HCl (Calan Tab) 40 mg PO TID [facility] Last Admin: 07/14/17 17:07 Dose: 40 mg Warfarin Sodium (Coumadin) 2 mg PO Q48H [facility] PRN Reason: Protocol - Labs Labs: 07/15/17 05:30 07/15/17 05:30 PT 28.4 SECONDS (9.4-12.5) H 07/15/17 05:30 INR 2.53 (0.93-1.08) H 07/15/17 05:30 APTT 31.4 Seconds (25.1-36.5) 07/15/17 05:30 - Constitutional Appears: Non-toxic - Head Exam Head Exam: NORMAL INSPECTION - ENT Exam ENT Exam: Mucous Membranes Moist - Neck Exam Neck Exam: absent: Meningismus - Respiratory Exam Respiratory Exam: Decreased Breath Sounds - Cardiovascular Exam Cardiovascular Exam: +S1, +S2 - GI/Abdominal Exam GI & Abdominal Exam: Soft. absent: Tenderness Assessment and Plan - Assessment and Plan (Free Text) Plan: Assessment Consider severe sepsis probably due to severe upper lobe pneumonia on top of COPD exacerbation and CHF, now extubatred history of ESBL E. coli HCAP in 2014 CHF with EF 25% COPD history of ESBL E. coli pneumonia in 04/2015 history of recent NSTEMI atrial fibrillation on anticoagulation DM history of alcohol abuse Plan continue Cefepime, IV Vancomycin and Doxycycline day 4 - should complete 4-7 days of therapy; CXR reviewed which showed upper lobe infiltrates Will continue to monitor clinically discussed with Dr. Shell previously
--- NOTE | 2017-07-15 12:03 | RAD ---
HISTORY: COMPARISON: No prior. TECHNIQUE: Chest PA and lateral FINDINGS: LINES AND TUBES: There has been interval extubation LUNG AND PLEURA: The lungs are hyperinflated and there is peribronchial thickening with chronic changes in both lungs. No focal consolidation. HEART AND MEDIASTINUM: The heart is not enlarged. The hilar and mediastinal contours are within normal limits. SKELETAL STRUCTURES: The bony structures are within normal limits for the patient's age. VISUALIZED UPPER ABDOMEN: Normal. OTHER FINDINGS: None. IMPRESSION: COPD. No acute findings.
--- NOTE | 2017-07-15 12:22 | PN ---
DATE: 07/15/2017 REASON FOR CONSULTATION AND FOLLOWUP: History of paroxysmal atrial fibrillation, cardiomyopathy, coronary artery disease, admitted with respiratory distress, status post intubated and successfully extubated. SUBJECTIVE: The patient denies any chest pain, shortness of breath, or any palpitation. He feels better. OBJECTIVE/PHYSICAL EXAMINATION: As follows: GENERAL: Sitting at the bedside. VITAL SIGNS: Temperature is afebrile, heart rate is 93, and blood pressure is 132/78. HEENT: PERRLA. Extraocular muscles are intact. NECK: Supple. No carotid bruit or thyromegaly. CHEST: Clear to auscultation. HEART: S1 and S2 regular. ABDOMEN: Soft. EXTREMITIES: Clubbing and cyanosis negative. LABORATORY DATA: Blood workup as follows: WBC of 13.8, hemoglobin of 12.6, hematocrit of 41.1, and platelet count of 229. Chemistry shows sodium of 141, potassium of 4.3, chloride of 95, carbon dioxide of 39, anion gap of 11, BUN of 13, and creatinine of 0.7. IMPRESSION: Acute respiratory distress, acute chronic obstructive pulmonary disease exacerbation, acute respiratory failure stats post intubated, status post cardiac catheterization, nonobstructive coronary artery disease, nonischemic cardiomyopathy, last echo shows ejection fraction 15% to 20%, active tobacco abuse, prior echo shows ejection fraction 35%. RECOMMENDATIONS: Treat aggressively COPD. Continue anticoagulation, goal is to keep INR between 2 to 2.5, today's INR is 2.5. We will get the MUGA scan. Continue gentle diuretics. Continue Coreg and Lasix to p.o. We will follow with you. Thank you Dr. Shell for providing us the opportunity in taking care of the patient. Ron Lawler MD
--- NOTE | 2017-07-15 14:04 | PN ---
DATE: 07/15/2017 SUBJECTIVE: The patient is seen in room 261, bed one and also the patient has been seen while getting a MUGA scan. Overnight, nurse's notes were reviewed. The patient slept well without any complaints. The patient needed BiPap during the night. PHYSICAL EXAMINATION VITAL SIGNS: T-max 98.5. Telemetry shows sinus rhythm; heart rate 60, 62, 66, 81, 84; blood pressure 138/78, 126/62, 107/60, 114/73; respiration 20, O2 sat is 99% to 93% to 94% on BiPap nasal cannula. Intake and output, not documented correctly. HEAD: Normocephalic, atraumatic. EENT: Shows pinkish conjunctivae. Anicteric. Oropharyngeal lesion. No neck rigidity. CHEST: Kyphosis. LUNGS: Shows decreased air entry. CARDIOVASCULAR: S1, S2, regular rhythm. Positive systolic murmur, left sternal border, left second intercostal space, right second intercostal space. ABDOMEN: Protuberant, obese. Positive bowel sound. GENITALIA: Male. RECTAL: Deferred. EXTREMITY: Shows trace swelling of the lower extremity. MUSCULOSKELETAL: Shows a body mass index of 36.3. NEUROLOGIC: The patient is alert, awake, oriented x3. Cranial nerves II-XII intact. Gait examination is independent. VASCULAR: Peripheral pulses. DIAGNOSTIC DATA: From July 15: WBC 13.8, hemoglobin/hematocrit 12.6/41.1, platelet 229. Granulocytes 95% segs. PT 28.4, INR 2.53. Sodium 141, potassium 4.3, chloride 95, CO2 39, anion gap 11, BUN 37, creatinine 0.7, GFR greater than 60, glucose 173 and 162 and 180 and 308, calcium 8.9. LFTs within normal limit. Troponin is 0.03 trending downwards. BNP initially was 392. CPK is down to 207 from peak CPK of 799. EKG from July 15 shows sinus rhythm with PVCs, intraventricular conduction delays. IMPRESSION AND PLAN 1. Acute ventilator dependent respiratory failure (resolved). 2. Acute exacerbation of chronic obstructive prone disease with bronchospasm. 3. Status post hypercarbic ventilator-dependent respiratory failure. 4. Tachycardia. 5. Hypertension. 6. Tachypnea. 7. Hypoxemia. 8. Leukocytosis with granulocytosis. 9. Normocytic anemia. 10. Bandemia. 11. Coumadin dependent atrial fibrillation. 12. Hypercarbic hypoxic respiratory failure. 13. Respiratory acidosis. 14. Metabolic alkalosis. 15. Prerenal kidney injury. 16. [id number] non-insulin requiring diabetes mellitus with hyperglycemia with hemoglobin A1c of 7.8. 17. Status post hypercalcemia, hyperphosphatemia, hypermagnesemia. 18. Questionable rhabdomyolysis with elevated CPK. 19. Hypochloremia metabolic alkalosis. 20. Prerenal kidney injury. 21. Indeterminate troponin. 22. Proteinuria, microscopic hematuria, bacteriuria. 23. Bilateral upper lobe healthcare-associated versus community-acquired possibly ventilator dependent pneumonia versus aspiration pneumonia. 24. Left bundle-branch block intraventricular conduction delay. 25. Possible severe sepsis secondary to severe bilateral upper lobe pneumonia with acute exacerbation of chronic obstructive pulmonary disease. 26. Nonischemic dilated cardiomyopathy. 27. Obstructive sleep apnea. 28. History of poor compliance and noncompliance. 29. Active nicotine addiction and dependence. 1. Status post ventilator-dependent respiratory failure. 2. Status post hypercarbic hypoxic respiratory failure. 3. Respiratory acidosis with hypoxemia. 4. Questionable sepsis versus systemic inflammatory response syndrome with bilateral upper lobe questionable community-acquired versus healthcare-associated possible aspiration pneumonia. 5. Asymptomatic nonsustained ventricular tachycardia. 6. History of paroxysmal atrial fibrillation. 7. Hypoxemia. 8. Leukocytosis with granulocytosis and bandemia. 9. Normocytic anemia. 10. Hypochloremic metabolic alkalosis. 11. Prerenal kidney injury. 12. Bbr-swqpbnw-vlfxbarft diabetes mellitus. 13. Coumadin-dependent atrial fibrillation with mildly elevated PT and INR. 14. Hypercarbia. 15. Questionable mild rhabdomyolysis. 16. Indeterminate troponin. 17. Acute exacerbation of chronic obstructive pulmonary disease with bronchospasm, slowly resolving. 18. Active nicotine addiction and dependence. 19. Morbid obesity with elevated body mass index of 35. 20. History of noncompliance. 21. History of paroxysmal atrial fibrillation. 22. Hypovitaminosis D. 23. Diabetic neuropathy. 24. Dilated cardiomyopathy with ejection fraction of less than 20%. 25. Dyslipidemia with hyperlipidemia and hypertriglyceridemia. 1. Acute hypercarbic respiratory failure. 2. Status post ventilator dependent acute hypercarbic respiratory failure. 3. Acute exacerbation of chronic obstructive pulmonary disease. 4. Hypoxemia. 5. Systemic inflammatory response syndrome versus possible sepsis. 6. Bilateral multilobar healthcare-associated versus community-acquired pneumonia. 7. Coumadin-dependent atrial fibrillation. 8. Respiratory acidosis and hypercarbia. 9. Metabolic alkalosis. 10. Questionable rhabdomyolysis with elevated CPK. 11. Uncontrolled type 2 diabetes mellitus with hemoglobin A1c of 7.8. 12. Indeterminate troponin. 13. Morbid obesity. 14. Active nicotine addiction and dependence with history of alcohol abuse and dependence. 15. Dilated cardiomyopathy with ejection fraction under 30%. 16. History of noncompliance and signing out against medical advice. 17. Diabetic neuropathy. 18. Dyslipidemia with hypercholesteremia and hypertriglyceridemia. 19. History of sleep apnea. 1. Acute ventilator-dependent respiratory failure. 2. Acute exacerbation of chronic obstructive pulmonary disease with bronchospasm. 3. Acute hypercarbic ventilator-dependent respiratory failure. 4. Tachycardia. 5. Hypertension. 6. Tachycardia. 7. Leukocytosis with granulocytosis. 8. Coumadin-dependent atrial fibrillation. 9. Respiratory acidosis with hypercarbia. 10. Hypercarbic hypoxic respiratory failure. 11. Metabolic alkalosis. 12. Prerenal kidney injury. 13. Hyperglycemia with diabetes mellitus. 14. Hypercalcemia. 15. Hyperphosphatemia. 16. Indeterminate troponin. 17. Proteinuria. 18. Microscope hematuria, bacteriuria. 19. Bilateral upper lobe healthcare-associated ventilator dependent pneumonia. 20. Left bundle-branch block. 21. Severe sepsis with ventilator-dependent respiratory failure secondary to bilateral upper lobe healthcare-associated questionable aspiration pneumonia. 22. Dyslipidemia. 23. Diabetic neuropathy. 24. Kuy-vbagqdu-qwprlrmcu diabetes mellitus. 25. Systolic congestive heart failure. PLAN: At this time, the patient has been ordered serial labs. Current consultation are Cardiology, Infectious Disease. The patient's case referred to TCU. The patient is on verapamil 40 mg three times a day, Coreg 12.5 twice a day, Coumadin 2 mg every 48 hours, Cymbalta 30 mg daily. The patient is started on Diamox 250 mg twice a day for total of eight doses, Vibramycin 100 mg IV q. 12, DuoNeb nebulizer every 4 hours [id number], Humalog low-dose sliding scale coverage, digoxin 0.125 mg daily, Lasix changed to 40 mg p.o. once a day, Lipitor 20 mg daily, Lopid 600 mg twice a day, cefepime 2 g IV q. eight, Protonix 40 mg daily, Singulair 10 mg h.s., Solu-Medrol 40 mg IV q. 8, vancomycin 1 g IV q. 12. Repeat chest x-ray PA and lateral ordered. The patient gets BiPap at night 14/6, 40% FIO2, rate of 14. The patient is undergoing MUGA scan, the results of which needs to be reviewed.. The patient's nebulizer medication will be considered to be changed to Xopenex, Mucomyst nebulizer combination to help the patient with expectoration and bronchodilation. At present, the patient will be monitored very closely with Pulmonary and cardiac status. The patient's further management will be dependent upon the patient's clinical condition, hemodynamic status and as per the patient response to therapeutic intervention. The patient still has not improved with his Pulmonary status with improved aeration. The patient still has poor air entry. No decreased wheezing and rhonchi. The patient will be considered today to be left on the same dose of Solu-Medrol 40 IV q. 8. Repeat chest x-ray has been ordered. We will review echocardiogram when available. The patient has been ordered out of bed, STEPHANIE jennings, SCDs. The patient will be ordered physical therapy, occupational therapy, ambulation therapy will be ordered. TCU referral ordered. Dictated and electronically signed, not read. PHYSICAL EXAMINATION GENERAL: Text. VITAL SIGNS: Text. HEENT: Text. NECK: Text. CARDIOPULMONARY: Text. LUNGS: Text. ABDOMEN: Text. EXTREMITIES: Text. LABORATORY DATA: Text. MEDICATIONS: Text. ASSESSMENT AND PLAN: Text. Cedrick Shell MD MTDD
[2017-07-15] MEDS: Digoxin 125 mcg (0.125 mg) Tab PO SCH (14:05)
--- NOTE | 2017-07-15 21:40 | CARD ---
APPROVED REPORT INDICATION RESPIRATORY DISTRESS,EVALUATE LV AND RV EF% PROCEDURE The above named patient recieved 28.8 millicuries of Tc99m tagged red blood cells intravenously. After achieving equilibrium, gated imaging of 16/frame/cycle was performed utillizing Gamma camera interfaced with a digital computer and gated device. Gated imaging was then performed in the left anterior oblique, anterior, and the left lateral projections. Findings Left Ventricle: The quality of the study is suboptimal due to poor positioning and poor separation of left and right ventricle. The left ventricle is mildly enlarged in size. The right ventricle is normal in size. Wall motion study shows mild diffuse hypokinesis of the left ventricle. RV wall motion is normal. The right atrium is dynamic.. The remainder of the study is unremarkable. Impressions Suboptimal study. Mild LV dysfunction with diffuse hypokinesis. LVEF = 47%. Normal RV wall motion.
[2017-07-16] MEDS: Insulin Lispro (humaLOG) LOW Coverage SC SCH ×5 (00:04→21:21)
[2017-07-16] MEDS: MethylPREDNISolone 40 mg Vial IVP SCH ×3 (02:01→14:31)
[2017-07-16] MEDS: Levalbuterol 0.63 MG/3 ML Inhal Soln UD IH SCH ×4 (03:34→20:04)
[2017-07-16] MEDS: Acetylcysteine 20% Inhal Soln (4ml) IH SCH ×4 (03:38→20:04)
[2017-07-16] MEDS: Pantoprazole 40 mg EC Tab PO SCH (05:50)
[2017-07-16] MEDS: Cefepime IV 2 gm in NS 2 GM/100 ML BAG IVPB SCH ×3 (05:51→21:21)
[2017-07-16] MEDS: Vancomycin 1gm in NS 250ml 1 GM/250 ML BAG IVPB SCH (05:51)
[2017-07-16 06:13] LABS: BASO # 0.01 K/mm3 (0.0-2.0); BASO % 0.1 % (0.0-3.0); GRAN # 14.66 (1.4-6.5); GRAN % 93.1 % (50.0-68.0); HEMATOCRIT 43.3 % (42.0-52.0); LYMPH # 0.5 (1.2-3.4); LYMPH % 3.4 % (22.0-35.0); MEAN CELL VOLUME 95.6 fl (80.0-105.0); MEAN CORPUSCULAR HEMOGLOBIN 29.4 pg (25.0-35.0); MEAN CORPUSCULAR HGB CONC 30.7 g/dl (31.0-37.0); MEAN PLATELET VOLUME 10.2 fl (7.0-11.0); MONO # 0.5 (0.1-0.6); MONO % 3.4 % (1.0-6.0); RED CELL DISTRIBUTION WIDTH 15.5 % (11.5-14.5); WHITE BLOOD COUNT 15.7 10^3/ul (4.5-11.0)
[2017-07-16 06:33] LABS: INR 2.16 (0.93-1.08); PARTIAL THROMBOPLASTIN TIME 31.1 Seconds (25.1-36.5)
[2017-07-16 07:47] LABS: ALB/GLOB RATIO 1.1 (1.1-1.8); ALKALINE PHOSPHATASE 58 U/L (38-126); ALT/SGPT 35 U/L (7-56); AST/SGOT 28 U/L (17-59); BILIRUBIN,DIRECT 0.6 mg/dL (0.0-0.4); BILIRUBIN,TOTAL 0.6 mg/dL (0.2-1.3); BLOOD UREA NITROGEN 27 mg/dL (7-21); CARBON DIOXIDE 35 mmol/L (21-33); CHLORIDE 98 mmol/L (98-107); GFR AFRICAN-AMERICAN > 60; GLUCOSE,RANDOM 180 mg/dL (70-110); MAGNESIUM 1.8 mg/dL (1.7-2.2); POTASSIUM 4.5 mmol/L (3.6-5.0); SODIUM 138 mmol/L (132-148); TOTAL PROTEIN 7.3 g/dL (5.8-8.3)
[2017-07-16 07:54] LABS: TROPONIN I 0.03 ng/mL
--- NOTE | 2017-07-16 09:28 | CP.PCM.PN ---
Subjective - Date & Time of Evaluation Date of Evaluation: 07/16/17 Time of Evaluation: 09:24 - Subjective Subjective: PGY-[address] Shell's service Patient seen and examined at bedside. No acute distress. Patient states that he does not like to wear cpap machine at night. He was not able to tolerate it and wore abdirahman mask for part of the night. He states that the breathing treatment have helped. He denies any other complaints. Objective - Vital Signs/Intake and Output Vital Signs (last 24 hours): Temp Pulse Resp BP Pulse Ox 97.7 F 71 19 139/69 93 L 07/16/17 06:00 07/16/17 06:00 07/16/17 06:00 07/16/17 06:00 07/16/17 06:00 Intake and Output: 07/16/17 07/16/17 06:59 18:59 Intake Total 1240 Output Total 2000 Balance -760 - Medications Medications: Current Medications Acetazolamide (Diamox 250 Mg Tab) 250 mg PO BID [facility] Stop: 07/18/17 18:01 Last Admin: 07/15/17 17:34 Dose: 250 mg Acetylcysteine (Acetylcysteine 20%) 4 ml IH [id number] [facility] Last Admin: 07/16/17 08:08 Dose: 4 ml Atorvastatin Calcium (Lipitor) 20 mg PO DIN [facility] Last Admin: 07/15/17 17:27 Dose: 20 mg Carvedilol (Coreg) 12.5 mg PO BID [facility] Last Admin: 07/15/17 17:32 Dose: 12.5 mg Digoxin (Lanoxin) 0.125 mg PO 1400 [facility] Last Admin: 07/15/17 14:05 Dose: 0.125 mg Duloxetine HCl (Cymbalta) 30 mg PO DAILY [facility] Last Admin: 07/15/17 10:58 Dose: 30 mg Furosemide (Lasix) 40 mg PO DAILY [facility] Gemfibrozil (Lopid) 600 mg PO BID [facility] Last Admin: 07/15/17 17:27 Dose: 600 mg Propofol (Diprivan) 1,000 mg in 100 mls @ 3.119 mls/hr IV .Q24H PRN; Protocol; 5 MCG/KG/MIN PRN Reason: TITRATE PER MD ORDER Last Titration: 07/12/17 08:00 Dose: 0 mcg/kg/min, 0 mls/hr Cefepime HCl (Maxipime 2gm) 2 gm in 100 mls @ 100 mls/hr IVPB Q8 RENE PRN Reason: Protocol Stop: 07/17/17 14:01 Last Admin: 07/16/17 05:51 Dose: 100 mls/hr Doxycycline Hyclate 100 mg/ (Sodium Chloride) 100 mls @ 100 mls/hr IVPB Q12 RENE PRN Reason: Protocol Last Admin: 07/15/17 22:17 Dose: 100 mls/hr Insulin Human Lispro (Humalog Low) 0 units SC ACHS RENE PRN Reason: Protocol Last Admin: 07/16/17 08:33 Dose: 1 units Levalbuterol HCl (Xopenex) 0.63 mg IH [id number] RENE Last Admin: 07/16/17 08:08 Dose: 0.63 mg Levalbuterol HCl (Xopenex) 0.63 mg IH [id number] PRN PRN Reason: Shortness of Breath Methylprednisolone (Solu-Medrol) 30 mg IVP Q8H [facility] Last Admin: 07/16/17 08:34 Dose: 30 mg Montelukast Sodium (Singulair) 10 mg PO DAILY [facility] Last Admin: 07/15/17 10:58 Dose: 10 mg Pantoprazole Sodium (Protonix Ec Tab) 40 mg PO 0600 [facility] Last Admin: 07/16/17 05:50 Dose: 40 mg Verapamil HCl (Calan Tab) 40 mg PO TID [facility] Last Admin: 07/15/17 17:31 Dose: 40 mg Warfarin Sodium (Coumadin) 2 mg PO Q48H RENE PRN Reason: Protocol Last Admin: 07/15/17 14:05 Dose: 2 mg - Labs Labs: 07/16/17 05:30 07/16/17 07:30 PT 24.1 SECONDS (9.4-12.5) H 07/16/17 05:30 INR 2.16 (0.93-1.08) H 07/16/17 05:30 APTT 31.1 Seconds (25.1-36.5) 07/16/17 05:30 - Constitutional Appears: Well, No Acute Distress - Head Exam Head Exam: ATRAUMATIC, NORMAL INSPECTION, NORMOCEPHALIC - Eye Exam Eye Exam: EOMI, Normal appearance - ENT Exam ENT Exam: Mucous Membranes Moist - Respiratory Exam Respiratory Exam: Rhonchi, Wheezes (bilateral lower bases), NORMAL BREATHING PATTERN. absent: Decreased Breath Sounds, Rales, Respiratory Distress - Cardiovascular Exam Cardiovascular Exam: Irregular Rhythm. absent: Tachycardia, Murmur - GI/Abdominal Exam GI & Abdominal Exam: Soft, Normal Bowel Sounds. absent: Distended, Firm, Guarding, Tenderness - Extremities Exam Extremities Exam: Full ROM, Normal Inspection. absent: Pedal Edema, Tenderness - Neurological Exam Neurological Exam: Alert, Awake, Oriented x3 - Skin Skin Exam: Dry, Intact, Normal Color, Warm Assessment and Plan - Assessment and Plan (Free Text) Assessment: 52 year old male with past medical history of COPD, CHF, Afib on coumadin, CAD, HTN, DM presents to the ED for shortness of breath and productive cough found to have respiratory failure 2/2 COPD exacerbation. Patient required intubation on admission. He has been extubated and transferred out of the ICU. Plan: 1. acute hypercapnic respiratory failure - due to COPD exacerbation and pna - improved, s/p extubated - contine soulmedrol decreased to 30mg Q8H - continue xopenex q4H - Continue antibiotics: vancomycin, Cefepime, doxycycline day 5 - ID following, recommend 4-7 days of therapy 2. Sepsis - etiology most likely PNA - afebrile, Leukocytosis slightly elevated today - blood culture negative - sputum cx- negative - urine cx- negative - procal not elevated - Continue antibiotics: vancomycin, Cefepime, doxycycline day 5 - ID following 3. a. fib - heart rate controlled - INR 2.16, therapeutic - continue on coumadin 2mg q48 hours, last dose yesterday - continue digoxin, coreg 4. HTN, - controlled - Continue Coreg 12.5mg BID, Verapamil 40mg TID - Continue Digoxin 0.125mg 5. systolic CHF - Previous echo on 12/10/16 shows EF of 15-20% - MUGA scan on 07/15 was suboptimal, EF of 47% - Continue Lipitor 20mg, Gemfibrizol 600mg BID - cardiology following 6. History of DM - controlled - on Glimeperide at home - ISS- low - Target blood sugars 140-180 - Accuchecks ACHS GI/DVT protonix -Protonix -Heparin
--- NOTE | 2017-07-16 10:13 | PN ---
DATE: 07/16/2017 SUBJECTIVE: The patient is seen in room 261 bed 1. Overnight nurse's notes; the patient slept without any adverse event. The patient had no events of shortness of breath or chest pain. The patient required nasal cannula and BiPAP during the night. There was no adverse events documented by the nurses notes. REVIEW OF SYSTEMS: A 13-system review was done. The patient states that breathing has significantly improved. PHYSICAL EXAMINATION: VITAL SIGNS: T-max is 98.4. Telemetry shows sinus rhythm, heart rate of 66, 71 and 74, blood pressure of 139/69 and 123/68, and O2 saturation of 93% to 95% on nasal cannula and BiPAP. INTAKE AND OUTPUT: Intake is 1240 and output is 2000. HEENT: Head examination normocephalic and atraumatic. HEENT examination shows pinkish conjunctivae. Anicteric sclerae. No oropharyngeal lesion. No neck rigidity. NECK: Short and supple. CHEST: Examination reveals kyphosis and decreased air entry noted. No wheezing, rhonchi, or crackles noted. CARDIOVASCULAR: Examination reveals S1 and S2, regular rhythm. Positive systolic murmur, right second intercostal space, left sternal border, left second intercostal space. GASTROINTESTINAL: Abdomen is morbidly obese. GENITALIA: Male. RECTAL: Examination is deferred. EXTREMITIES: Shows no pitting edema noted. MUSCULOSKELETAL: Examination shows an elevated body mass index. NEUROLOGIC: The patient is alert, awake, and oriented x3. Cranial nerves II through XII are intact. Gait examination is independent. VASCULAR: Examination reveals palpate pulses. Plantars are downward. DTRs at 2+. LABORATORY AND DIAGNOSTIC STUDIES: From 07/16/2017, WBC of 15.7, hemoglobin and hematocrit of 13.3 and 43.3, and platelets of 226, with 93% segs. PT of 24.1 and INR of 2.16. Sodium of 138, potassium of 4.5, chloride of 98, CO2 of 35, BUN of 27, creatinine of 0.9, glucose of 180, and magnesium of 1.8. LFTs are within normal limits. Fingerstick blood sugar of 180, 162 173 177, 232 and 208. Blood cultures, urine culture, and sputum cultures are negative. Chest x-ray from 07/15/2017 shows hyperinflated lungs consistent with COPD and peribronchial thickening and no pneumonia, consolidation noted. MUGA scan was noted which is a suboptimal study which shows left ventricle ejection fraction of around 47%, diffuse LV hypokinesis, and normal right ventricle. IMPRESSION AND PLAN 1. Status post ventilator dependent respiratory failure. 2. Acute exacerbation of chronic obstructive pulmonary disease with bronchospasm and ventilator dependent respiratory failure. 3. Bilateral multilobar healthcare-associated versus community-acquired versus ventilator dependant aspiration pneumonia (resolving). 4. Hypoxemia. 5. Active nicotine addiction. 6. Morbid obesity. 7. Leukocytosis with granulocytosis. 8. Metabolic alkalosis. 9. Respiratory acidosis. 10. Acute hypercarbic hypoxic respiratory ventilator-dependent respiratory failure. 11. Laa-kctwjuo-rnkikrbdr diabetes mellitus. 12. Chronic obstructive pulmonary disease with hyperinflated lung gilliam with peribronchial thickening. 13. Resolving bilateral multilobar pneumonia. 14. Diffuse left ventricular hypokinesis with a left ventricle ejection fraction of 47%. 15. History of noncompliance. 16. History of hypertension. 17. Nonischemic dilated cardiomyopathy. 18. Coumadin dependent atrial fibrillation. 19. Paroxysmal atrial fibrillation. 20. History of poor compliance and noncompliance. 21. Advanced end-stage oxygen and steroid dependent chronic obstructive pulmonary disease. 22. Hyperuricemia. 23. Hypomagnesemia. 24. Dyslipidemia with hypercholesteremia and hypertriglyceridemia. 25. Uncontrolled diabetes mellitus with hemoglobin A1c of 7.8. 26. Morbid obesity. 1. Acute ventilator dependent respiratory failure (resolved). 2. Acute exacerbation of chronic obstructive prone disease with bronchospasm. 3. Status post hypercarbic ventilator-dependent respiratory failure. 4. Tachycardia. 5. Hypertension. 6. Tachypnea. 7. Hypoxemia. 8. Leukocytosis with granulocytosis. 9. Normocytic anemia. 10. Bandemia. 11. Coumadin dependent atrial fibrillation. 12. Hypercarbic hypoxic respiratory failure. 13. Respiratory acidosis. 14. Metabolic alkalosis. 15. Prerenal kidney injury. 16. [id number] non-insulin requiring diabetes mellitus with hyperglycemia with hemoglobin A1c of 7.8. 17. Status post hypercalcemia, hyperphosphatemia, hypermagnesemia. 18. Questionable rhabdomyolysis with elevated CPK. 19. Hypochloremia metabolic alkalosis. 20. Prerenal kidney injury. 21. Indeterminate troponin. 22. Proteinuria, microscopic hematuria, bacteriuria. 23. Bilateral upper lobe healthcare-associated versus community-acquired possibly ventilator dependent pneumonia versus aspiration pneumonia. 24. Left bundle-branch block intraventricular conduction delay. 25. Possible severe sepsis secondary to severe bilateral upper lobe pneumonia with acute exacerbation of chronic obstructive pulmonary disease. 26. Nonischemic dilated cardiomyopathy. 27. Obstructive sleep apnea. 28. History of poor compliance and noncompliance. 29. Active nicotine addiction and dependence. 1. Status post ventilator-dependent respiratory failure. 2. Status post hypercarbic hypoxic respiratory failure. 3. Respiratory acidosis with hypoxemia. 4. Questionable sepsis versus systemic inflammatory response syndrome with bilateral upper lobe questionable community-acquired versus healthcare-associated possible aspiration pneumonia. 5. Asymptomatic nonsustained ventricular tachycardia. 6. History of paroxysmal atrial fibrillation. 7. Hypoxemia. 8. Leukocytosis with granulocytosis and bandemia. 9. Normocytic anemia. 10. Hypochloremic metabolic alkalosis. 11. Prerenal kidney injury. 12. Udi-pwpsvhv-fikbldenq diabetes mellitus. 13. Coumadin-dependent atrial fibrillation with mildly elevated PT and INR. 14. Hypercarbia. 15. Questionable mild rhabdomyolysis. 16. Indeterminate troponin. 17. Acute exacerbation of chronic obstructive pulmonary disease with bronchospasm, slowly resolving. 18. Active nicotine addiction and dependence. 19. Morbid obesity with elevated body mass index of 35. 20. History of noncompliance. 21. History of paroxysmal atrial fibrillation. 22. Hypovitaminosis D. 23. Diabetic neuropathy. 24. Dilated cardiomyopathy with ejection fraction of less than 20%. 25. Dyslipidemia with hyperlipidemia and hypertriglyceridemia. 1. Acute hypercarbic respiratory failure. 2. Status post ventilator dependent acute hypercarbic respiratory failure. 3. Acute exacerbation of chronic obstructive pulmonary disease. 4. Hypoxemia. 5. Systemic inflammatory response syndrome versus possible sepsis. 6. Bilateral multilobar healthcare-associated versus community-acquired pneumonia. 7. Coumadin-dependent atrial fibrillation. 8. Respiratory acidosis and hypercarbia. 9. Metabolic alkalosis. 10. Questionable rhabdomyolysis with elevated CPK. 11. Uncontrolled type 2 diabetes mellitus with hemoglobin A1c of 7.8. 12. Indeterminate troponin. 13. Morbid obesity. 14. Active nicotine addiction and dependence with history of alcohol abuse and dependence. 15. Dilated cardiomyopathy with ejection fraction under 30%. 16. History of noncompliance and signing out against medical advice. 17. Diabetic neuropathy. 18. Dyslipidemia with hypercholesteremia and hypertriglyceridemia. 19. History of sleep apnea. 1. Acute ventilator-dependent respiratory failure. 2. Acute exacerbation of chronic obstructive pulmonary disease with bronchospasm. 3. Acute hypercarbic ventilator-dependent respiratory failure. 4. Tachycardia. 5. Hypertension. 6. Tachycardia. 7. Leukocytosis with granulocytosis. 8. Coumadin-dependent atrial fibrillation. 9. Respiratory acidosis with hypercarbia. 10. Hypercarbic hypoxic respiratory failure. 11. Metabolic alkalosis. 12. Prerenal kidney injury. 13. Hyperglycemia with diabetes mellitus. 14. Hypercalcemia. 15. Hyperphosphatemia. 16. Indeterminate troponin. 17. Proteinuria. 18. Microscope hematuria, bacteriuria. 19. Bilateral upper lobe healthcare-associated ventilator dependent pneumonia. 20. Left bundle-branch block. 21. Severe sepsis with ventilator-dependent respiratory failure secondary to bilateral upper lobe healthcare-associated questionable aspiration pneumonia. 22. Dyslipidemia. 23. Diabetic neuropathy. 24. Mfk-wpentst-qnhvvrmuz diabetes mellitus. 25. Systolic congestive heart failure. PLAN: At this time, the patient is to be continued on the medications as per the MAR which is reviewed. The patient steroids will be decreased to Solu-Medrol 30 mg IV q. 8 hours. The patient's telemetry will be discontinued. The patient will be continued on nebulizer treatment, bronchodilators, and IV antibiotics as per infectious disease recommendation including cefepime 2 g IV q. 8 hours. and doxycycline 100 mg IV q. 12 hours. for a total of 7 days. The patient will be continued on fingerstick blood sugar, sliding scale coverage a.c. and at bedtime. The patient will be continued on Lasix 40 mg p.o. daily and Diamox 250 mg twice a day for total of eight doses. The patient will be continued on Coumadin 2 mg every 48 hours. The patient will be continued on GI prophylaxis with Protonix 40 mg daily. The patient is already on DVT prophylaxis with treatment of the atrial fibrillation on Coumadin. The patient has been advised out of bed to chair and ambulate. The patient was referred to TCU. The patient declined by TCU secondary to insurance issues. The patient's case referred to physical therapy and occupational therapy. If the patient continues to improve and shows significant improvement over improvement over the next 24 to 48 hours as soon as the patient completes the IV antibiotics as per recommendation by the infectious disease, the patient will be considered for discharge soon with slow tapering of the IV steroids. The patient has been re-counseled about cessation of smoking, weight loss, dietary and medication compliance and physician followup compliance. Dictated and electronically signed, not read. Signing off Cedrick Shell MD. Cedrick Shell MD MTDD
--- NOTE | 2017-07-16 11:40 | CP.PCM.PN ---
Subjective - Date & Time of Evaluation Date of Evaluation: 07/16/17 Time of Evaluation: 10:20 - Subjective Subjective: Breathing better, today, no cough currently, no fevers overnight. Objective - Vital Signs/Intake and Output Vital Signs (last 24 hours): Temp Pulse Resp BP Pulse Ox 97.7 F 71 19 139/69 93 L 07/16/17 06:00 07/16/17 06:00 07/16/17 06:00 07/16/17 06:00 07/16/17 06:00 Intake and Output: 07/16/17 07/16/17 06:59 18:59 Intake Total 1240 Output Total 2000 Balance -760 - Medications Medications: Current Medications Acetazolamide (Diamox 250 Mg Tab) 250 mg PO BID [facility] Stop: 07/18/17 18:01 Last Admin: 07/15/17 17:34 Dose: 250 mg Acetylcysteine (Acetylcysteine 20%) 4 ml IH [id number] [facility] Last Admin: 07/16/17 08:08 Dose: 4 ml Atorvastatin Calcium (Lipitor) 20 mg PO DIN [facility] Last Admin: 07/15/17 17:27 Dose: 20 mg Carvedilol (Coreg) 12.5 mg PO BID [facility] Last Admin: 07/15/17 17:32 Dose: 12.5 mg Digoxin (Lanoxin) 0.125 mg PO 1400 [facility] Last Admin: 07/15/17 14:05 Dose: 0.125 mg Duloxetine HCl (Cymbalta) 30 mg PO DAILY [facility] Last Admin: 07/15/17 10:58 Dose: 30 mg Furosemide (Lasix) 40 mg PO DAILY [facility] Gemfibrozil (Lopid) 600 mg PO BID [facility] Last Admin: 07/15/17 17:27 Dose: 600 mg Propofol (Diprivan) 1,000 mg in 100 mls @ 3.119 mls/hr IV .Q24H PRN; Protocol; 5 MCG/KG/MIN PRN Reason: TITRATE PER MD ORDER Last Titration: 07/12/17 08:00 Dose: 0 mcg/kg/min, 0 mls/hr Cefepime HCl (Maxipime 2gm) 2 gm in 100 mls @ 100 mls/hr IVPB Q8 [facility] PRN Reason: Protocol Stop: 07/17/17 14:01 Last Admin: 07/16/17 05:51 Dose: 100 mls/hr Doxycycline Hyclate 100 mg/ (Sodium Chloride) 100 mls @ 100 mls/hr IVPB Q12 [facility] PRN Reason: Protocol Last Admin: 07/15/17 22:17 Dose: 100 mls/hr Vancomycin HCl (Vancomycin 1gm) 1 gm in 250 mls @ 167 mls/hr IVPB Q12H [facility] PRN Reason: Protocol Last Admin: 07/16/17 05:51 Dose: 167 mls/hr Insulin Human Lispro (Humalog Low) 0 units SC ACHS [facility] PRN Reason: Protocol Last Admin: 07/16/17 08:33 Dose: 1 units Levalbuterol HCl (Xopenex) 0.63 mg IH [id number] [facility] Last Admin: 07/16/17 08:08 Dose: 0.63 mg Levalbuterol HCl (Xopenex) 0.63 mg IH [id number] PRN PRN Reason: Shortness of Breath Methylprednisolone (Solu-Medrol) 30 mg IVP Q8H [facility] Last Admin: 07/16/17 08:34 Dose: 30 mg Montelukast Sodium (Singulair) 10 mg PO DAILY [facility] Last Admin: 07/15/17 10:58 Dose: 10 mg Pantoprazole Sodium (Protonix Ec Tab) 40 mg PO 0600 [facility] Last Admin: 07/16/17 05:50 Dose: 40 mg Verapamil HCl (Calan Tab) 40 mg PO TID [facility] Last Admin: 07/15/17 17:31 Dose: 40 mg Warfarin Sodium (Coumadin) 2 mg PO Q48H [facility] PRN Reason: Protocol Last Admin: 07/15/17 14:05 Dose: 2 mg - Labs Labs: 07/16/17 05:30 07/16/17 07:30 PT 24.1 SECONDS (9.4-12.5) H 07/16/17 05:30 INR 2.16 (0.93-1.08) H 07/16/17 05:30 APTT 31.1 Seconds (25.1-36.5) 07/16/17 05:30 - Constitutional Appears: Non-toxic - Head Exam Head Exam: NORMAL INSPECTION - ENT Exam ENT Exam: Mucous Membranes Moist - Neck Exam Neck Exam: absent: Lymphadenopathy, Meningismus - Respiratory Exam Respiratory Exam: Decreased Breath Sounds - Cardiovascular Exam Cardiovascular Exam: +S1, +S2 - GI/Abdominal Exam GI & Abdominal Exam: Soft. absent: Tenderness Assessment and Plan - Assessment and Plan (Free Text) Plan: Assessment Consider severe sepsis probably due to severe upper lobe pneumonia on top of COPD exacerbation and CHF, now extubated history of ESBL E. coli HCAP in 2014 CHF with EF 25% COPD history of ESBL E. coli pneumonia in 04/2015 history of recent NSTEMI atrial fibrillation on anticoagulation DM history of alcohol abuse Plan continue Cefepime and Doxycycline day 5 and d/c IV Vancomycin since cultures are negative - should complete 4-7 days of therapy; CXR reviewed which showed upper lobe infiltrates Will continue to monitor clinically discussed with Dr. Shell previously
[2017-07-16] MEDS: Levalbuterol 0.63 MG/3 ML Inhal Soln UD IH PRN (11:43)
[2017-07-16] MEDS: Digoxin 125 mcg (0.125 mg) Tab PO SCH (13:20)
--- NOTE | 2017-07-16 14:25 | PN ---
DATE: 07/16/2017 REASON FOR CONSULTATION AND FOLLOWUP: History of paroxysmal atrial fibrillation, cardiomyopathy, coronary artery disease, admitted with respiratory failure, status post intubated and successfully extubated. SUBJECTIVE: Denies any chest pain, shortness of breath or any palpitation. Feels better. OBJECTIVE: GENERAL: Not in any apparent distress. VITAL SIGNS: Temperature afebrile, heart rate is 71, blood pressure 139/69. HEENT: PERRLA intact. NECK: Supple. No carotid bruits, thyromegaly. CHEST: Clear to auscultation. HEART: S1 and S2, regular. ABDOMEN: Soft. EXTREMITIES: Clubbing and cyanosis negative. LABORATORY DATA: Blood workup as follows: WBC 15.7, hemoglobin 13.3, hematocrit 43.3, platelet count 226. Chemistry shows sodium 130, potassium 4.5, chloride 90, carbon dioxide 35, anion gap of 10, BUN 27, creatinine 0.7. MUGA scan: The patient had a MUGA scan done yesterday that showed ejection fraction of 47%, normal RV. IMPRESSION: Nonischemic cardiomyopathy with normal coronaries, chronic obstructive pulmonary disease, active tobacco abuse, admitted with chronic obstructive pulmonary disease exacerbation, status post respiratory distress, status post intubated and now successfully extubated. Last echo shows 15-20% ejection fraction, prior echo shows 35%. RECOMMENDATION: Continue Coumadin. Continue atorvastatin. Continue Lasix. Continue Xopenex. Avoid DuoNeb nebulizer treatment because it causes more tachycardia. INR today is 2.16. Continue verapamil. Thank you Dr. Shell for providing us the opportunity in taking care of Sam Hawkins. Ron Lawler MD
[2017-07-17] MEDS: MethylPREDNISolone 40 mg Vial IVP SCH ×4 (00:21→22:51)
[2017-07-17] MEDS: Acetylcysteine 20% Inhal Soln (4ml) IH SCH ×4 (01:48→20:58)
[2017-07-17] MEDS: Levalbuterol 0.63 MG/3 ML Inhal Soln UD IH SCH ×4 (01:49→20:59)
[2017-07-17] MEDS: Cefepime IV 2 gm in NS 2 GM/100 ML BAG IVPB SCH ×2 (05:54→13:53)
[2017-07-17] MEDS: Pantoprazole 40 mg EC Tab PO SCH (05:54)
[2017-07-17 07:11] LABS: BASO # 0.02 K/mm3 (0.0-2.0); BASO % 0.1 % (0.0-3.0); GRAN # 14.95 (1.4-6.5); GRAN % 90.3 % (50.0-68.0); HEMATOCRIT 44.3 % (42.0-52.0); LYMPH # 0.7 (1.2-3.4); LYMPH % 4.2 % (22.0-35.0); MEAN CELL VOLUME 93.5 fl (80.0-105.0); MEAN CORPUSCULAR HEMOGLOBIN 29.3 pg (25.0-35.0); MEAN CORPUSCULAR HGB CONC 31.4 g/dl (31.0-37.0); MEAN PLATELET VOLUME 10.3 fl (7.0-11.0); MONO # 0.9 (0.1-0.6); MONO % 5.4 % (1.0-6.0); PLATELET COUNT 205 10^3/uL (120.0-450.0); RED CELL DISTRIBUTION WIDTH 15.1 % (11.5-14.5); WHITE BLOOD COUNT 16.6 10^3/ul (4.5-11.0)
[2017-07-17 07:25] LABS: INR 2.56 (0.93-1.08); PARTIAL THROMBOPLASTIN TIME 29.8 Seconds (25.1-36.5)
[2017-07-17 07:35] LABS: ALB/GLOB RATIO 1.1 (1.1-1.8); ALKALINE PHOSPHATASE 57 U/L (38-126); ALT/SGPT 51 U/L (7-56); AST/SGOT 23 U/L (17-59); BILIRUBIN,TOTAL 0.6 mg/dL (0.2-1.3); BLOOD UREA NITROGEN 26 mg/dL (7-21); CALCIUM 9.3 mg/dL (8.4-10.5); CARBON DIOXIDE 35 mmol/L (21-33); CHLORIDE 99 mmol/L (98-107); GFR AFRICAN-AMERICAN > 60; GLUCOSE,RANDOM 170 mg/dL (70-110); MAGNESIUM 1.8 mg/dL (1.7-2.2); POTASSIUM 4.3 mmol/L (3.6-5.0); SODIUM 140 mmol/L (132-148); TOTAL PROTEIN 7.3 g/dL (5.8-8.3)
[2017-07-17 07:39] LABS: BILIRUBIN,DIRECT 0.6 mg/dL (0.0-0.4); TROPONIN I 0.02 ng/mL
--- NOTE | 2017-07-17 07:53 | CP.PCM.PN ---
Subjective - Date & Time of Evaluation Date of Evaluation: 07/17/17 Time of Evaluation: 07:51 - Subjective Subjective: PGY-[address] Shell's service Patient seen and examined at bedside. No acute distress. Patient resting comfortably with cpap. He states his breathing is better. He states that he does not wish to go to [facility] at this time. He is tolerating diet and is able to ambulate with walker. Objective - Vital Signs/Intake and Output Vital Signs (last 24 hours): Temp Pulse Resp BP Pulse Ox 97.5 F L 53 L 19 128/78 93 L 07/16/17 18:00 07/17/17 07:43 07/16/17 18:00 07/16/17 18:00 07/16/17 06:00 Intake and Output: 07/17/17 07/17/17 06:59 18:59 Intake Total 180 Output Total 700 Balance -520 - Medications Medications: Current Medications Acetazolamide (Diamox 250 Mg Tab) 250 mg PO BID [facility] Stop: 07/18/17 18:01 Last Admin: 07/16/17 17:34 Dose: 250 mg Acetylcysteine (Acetylcysteine 20%) 4 ml IH [id number] [facility] Last Admin: 07/17/17 07:39 Dose: 4 ml Atorvastatin Calcium (Lipitor) 20 mg PO DIN [facility] Last Admin: 07/16/17 17:33 Dose: 20 mg Carvedilol (Coreg) 12.5 mg PO BID [facility] Last Admin: 07/16/17 17:33 Dose: 12.5 mg Digoxin (Lanoxin) 0.125 mg PO 1400 [facility] Last Admin: 07/16/17 13:20 Dose: 0.125 mg Duloxetine HCl (Cymbalta) 30 mg PO DAILY [facility] Last Admin: 07/16/17 09:55 Dose: 30 mg Furosemide (Lasix) 40 mg PO DAILY [facility] Last Admin: 07/16/17 09:51 Dose: 40 mg Gemfibrozil (Lopid) 600 mg PO BID [facility] Last Admin: 07/16/17 17:34 Dose: 600 mg Cefepime HCl (Maxipime 2gm) 2 gm in 100 mls @ 100 mls/hr IVPB Q8 [facility] PRN Reason: Protocol Stop: 07/17/17 14:01 Last Admin: 07/17/17 05:54 Dose: 100 mls/hr Doxycycline Hyclate 100 mg/ (Sodium Chloride) 100 mls @ 100 mls/hr IVPB Q12 [facility] PRN Reason: Protocol Last Admin: 07/16/17 23:25 Dose: 100 mls/hr Insulin Human Lispro (Humalog Low) 0 units SC ACHS [facility] PRN Reason: Protocol Last Admin: 07/16/17 21:21 Dose: Not Given Levalbuterol HCl (Xopenex) 0.63 mg IH [id number] [facility] Last Admin: 07/17/17 07:39 Dose: 0.63 mg Levalbuterol HCl (Xopenex) 0.63 mg IH [id number] PRN PRN Reason: Shortness of Breath Last Admin: 07/16/17 11:43 Dose: 0.63 mg Methylprednisolone (Solu-Medrol) 30 mg IVP Q8H [facility] Last Admin: 07/17/17 00:21 Dose: 30 mg Montelukast Sodium (Singulair) 10 mg PO DAILY [facility] Last Admin: 07/16/17 09:51 Dose: 10 mg Pantoprazole Sodium (Protonix Ec Tab) 40 mg PO 0600 [facility] Last Admin: 07/17/17 05:54 Dose: 40 mg Verapamil HCl (Calan Tab) 40 mg PO TID [facility] Last Admin: 07/16/17 17:33 Dose: 40 mg Warfarin Sodium (Coumadin) 2 mg PO Q48H [facility] PRN Reason: Protocol Last Admin: 07/15/17 14:05 Dose: 2 mg - Labs Labs: 07/17/17 06:50 07/17/17 06:50 PT 28.7 SECONDS (9.4-12.5) H 07/17/17 06:50 INR 2.56 (0.93-1.08) H 07/17/17 06:50 APTT 29.8 Seconds (25.1-36.5) 07/17/17 06:50 - Constitutional Appears: Well, No Acute Distress - Head Exam Head Exam: ATRAUMATIC, NORMAL INSPECTION, NORMOCEPHALIC - Eye Exam Eye Exam: EOMI, Normal appearance - ENT Exam ENT Exam: Mucous Membranes Moist - Respiratory Exam Respiratory Exam: Clear to Ausculation Bilateral, NORMAL BREATHING PATTERN. absent: Rales, Rhonchi, Wheezes, Respiratory Distress - Cardiovascular Exam Cardiovascular Exam: REGULAR RHYTHM, +S1, +S2. absent: Tachycardia, Murmur - GI/Abdominal Exam GI & Abdominal Exam: Soft, Normal Bowel Sounds. absent: Distended, Firm, Tenderness - Extremities Exam Extremities Exam: Normal Inspection. absent: Pedal Edema, Tenderness - Neurological Exam Neurological Exam: Alert, Awake, Oriented x3 - Skin Skin Exam: Dry, Intact, Normal Color, Warm Assessment and Plan - Assessment and Plan (Free Text) Assessment: 52 year old male with past medical history of COPD, CHF, Afib on coumadin, CAD, HTN, DM presents to the ED for shortness of breath and productive cough found to have respiratory failure 2/2 COPD exacerbation. Patient required intubation on admission. He has been extubated and transferred out of the ICU. Plan: 1. acute hypercapnic respiratory failure - due to COPD exacerbation and pna - improved, s/p extubated - contine soulmedrol decreased to 30mg Q12H - continue xopenex q4H - Continue antibiotics: vancomycin, Cefepime, doxycycline day 6 - ID following, recommend 4-7 days of therapy - will consider discharging tomorrow after 7 days of antibiotics and tapering steroids 2. Sepsis - etiology most likely PNA - afebrile - blood culture negative - sputum cx- negative - urine cx- negative - procal not elevated - Continue antibiotics: vancomycin, Cefepime, doxycycline day 6, total of 7 days - ID following 3. a. fib - heart rate controlled - INR 2.56, therapeutic - continue on coumadin 2mg q48 hours - continue digoxin, coreg 4. HTN, - controlled - Continue Coreg 12.5mg BID, Verapamil 40mg TID - Continue Digoxin 0.125mg 5. systolic CHF - Previous echo on 12/10/16 shows EF of 15-20% - MUGA scan on 07/15 was suboptimal, EF of 47% - Continue Lipitor 20mg, Gemfibrizol 600mg BID - cardiology following 6. History of DM - controlled - on Glimeperide at home - ISS- low - Target blood sugars 140-180 - Accuchecks ACHS GI/DVT protonix -Protonix -Heparin
[2017-07-17 08:34] LABS: ANISOCYTOSIS SLIGHT; NEUTROPHIL 91 % (50.0-70.0); PLATELET ESTIMATE NORMAL (NORMAL)
[2017-07-17] MEDS: Insulin Lispro (humaLOG) LOW Coverage SC SCH ×4 (10:02→23:43)
--- NOTE | 2017-07-17 13:26 | CP.PCM.PN ---
Subjective - Date & Time of Evaluation Date of Evaluation: 07/17/17 Time of Evaluation: 11:30 - Subjective Subjective: Feeling better, breathing better, less cough, no fevers overnight. Objective - Vital Signs/Intake and Output Vital Signs (last 24 hours): Temp Pulse Resp BP Pulse Ox 97.6 F 62 20 144/77 95 07/17/17 08:20 07/17/17 08:20 07/17/17 08:20 07/17/17 10:01 07/17/17 10:18 Intake and Output: 07/17/17 07/17/17 06:59 18:59 Intake Total 180 Output Total 700 Balance -520 - Medications Medications: Current Medications Acetazolamide (Diamox 250 Mg Tab) 250 mg PO BID [facility] Stop: 07/18/17 18:01 Last Admin: 07/17/17 10:01 Dose: 250 mg Acetylcysteine (Acetylcysteine 20%) 4 ml IH [id number] [facility] Last Admin: 07/17/17 07:39 Dose: 4 ml Atorvastatin Calcium (Lipitor) 20 mg PO DIN [facility] Last Admin: 07/16/17 17:33 Dose: 20 mg Carvedilol (Coreg) 12.5 mg PO BID [facility] Last Admin: 07/17/17 10:01 Dose: 12.5 mg Digoxin (Lanoxin) 0.125 mg PO 1400 [facility] Last Admin: 07/16/17 13:20 Dose: 0.125 mg Duloxetine HCl (Cymbalta) 30 mg PO DAILY [facility] Last Admin: 07/17/17 10:00 Dose: 30 mg Furosemide (Lasix) 40 mg PO DAILY [facility] Last Admin: 07/17/17 10:01 Dose: 40 mg Gemfibrozil (Lopid) 600 mg PO BID [facility] Last Admin: 07/17/17 10:01 Dose: 600 mg Cefepime HCl (Maxipime 2gm) 2 gm in 100 mls @ 100 mls/hr IVPB Q8 [facility] PRN Reason: Protocol Stop: 07/17/17 14:01 Last Admin: 07/17/17 05:54 Dose: 100 mls/hr Doxycycline Hyclate 100 mg/ (Sodium Chloride) 100 mls @ 100 mls/hr IVPB Q12 [facility] PRN Reason: Protocol Last Admin: 07/17/17 09:26 Dose: 100 mls/hr Insulin Human Lispro (Humalog Low) 0 units SC ACHS [facility] PRN Reason: Protocol Last Admin: 07/17/17 10:02 Dose: 1 units Levalbuterol HCl (Xopenex) 0.63 mg IH [id number] [facility] Last Admin: 07/17/17 07:39 Dose: 0.63 mg Levalbuterol HCl (Xopenex) 0.63 mg IH [id number] PRN PRN Reason: Shortness of Breath Last Admin: 07/16/17 11:43 Dose: 0.63 mg Methylprednisolone (Solu-Medrol) 30 mg IVP Q8H [facility] Last Admin: 07/17/17 10:02 Dose: 30 mg Montelukast Sodium (Singulair) 10 mg PO DAILY [facility] Last Admin: 07/17/17 10:01 Dose: 10 mg Pantoprazole Sodium (Protonix Ec Tab) 40 mg PO 0600 [facility] Last Admin: 07/17/17 05:54 Dose: 40 mg Verapamil HCl (Calan Tab) 40 mg PO TID [facility] Last Admin: 07/17/17 09:59 Dose: 40 mg Warfarin Sodium (Coumadin) 2 mg PO Q48H [facility] PRN Reason: Protocol Last Admin: 07/15/17 14:05 Dose: 2 mg - Labs Labs: 07/17/17 06:50 07/17/17 06:50 PT 28.7 SECONDS (9.4-12.5) H 07/17/17 06:50 INR 2.56 (0.93-1.08) H 07/17/17 06:50 APTT 29.8 Seconds (25.1-36.5) 07/17/17 06:50 - Constitutional Appears: Non-toxic - Head Exam Head Exam: NORMAL INSPECTION - ENT Exam ENT Exam: Mucous Membranes Moist - Neck Exam Neck Exam: absent: Lymphadenopathy, Meningismus - Respiratory Exam Respiratory Exam: Decreased Breath Sounds - Cardiovascular Exam Cardiovascular Exam: +S1, +S2 - GI/Abdominal Exam GI & Abdominal Exam: Soft. absent: Tenderness Assessment and Plan - Assessment and Plan (Free Text) Plan: Assessment Consider severe sepsis probably due to severe upper lobe pneumonia on top of COPD exacerbation and CHF, now extubated history of ESBL E. coli HCAP in 2014 CHF with EF 25% COPD history of ESBL E. coli pneumonia in 04/2015 history of recent NSTEMI atrial fibrillation on anticoagulation DM history of alcohol abuse Plan continue Cefepime and Doxycycline day 6 - should complete up to 7 days of therapy; CXR reviewed which showed upper lobe infiltrates Will continue to monitor clinically discussed with Dr. Shell previously
[2017-07-17] MEDS: Digoxin 125 mcg (0.125 mg) Tab PO SCH (13:50)
[2017-07-17 13:57] VITALS: PULSE 65
[2017-07-17] MEDS: Levalbuterol 0.63 MG/3 ML Inhal Soln UD IH PRN ×2 (17:55→23:40)
--- NOTE | 2017-07-17 20:27 | PN ---
LOCATION: The patient was seen in room 573, bed 1. SUBJECTIVE: The patient was made out of bed to chair and to ambulate. The patient's overnight nurse's notes were reviewed, no adverse events were documented. The patient stayed well. PHYSICAL EXAMINATION: VITAL SIGNS: T-max 98.3. Pulse 62, 53, 70, 78; blood pressure is 134/78, 150/76, 144/77; respiration 22; O2 sat 97%. HEENT: Head examination, normocephalic, atraumatic. HEENT examination shows pinkish conjunctivae. Anicteric sclerae. No oropharyngeal lesion. No neck rigidity. CHEST: Kyphosis. LUNG: Shows decreased air entry. No wheezing, crackles or rales. CARDIOVASCULAR: S1 and S2, regular rhythm. ABDOMEN: Morbidly protuberant. GENITALIA: Male. RECTAL: Deferred. EXTREMITY: Shows no pitting, no calf tenderness, no Homans' sign. NEUROLOGIC: The patient is alert, awake, oriented x3. Cranial nerves II-XII intact. Gait examination is independent. VASCULAR: Palpate pulses. Plantars are downward. DTRs at 2+. DIAGNOSTICS: On 07/17, WBC is 16.6, hemoglobin/hematocrit 13.9, 44.3, platelet 205, granulocytes 91% segs. PT 28.7, INR 2.56. Sodium 140, potassium 4.3, chloride 99, CO2 35, anion gap 10, BUN 26, creatinine 0.8. GFR greater than 60, glucose 180, 226, 150, 170, 195, and 294; calcium 9.3. LFTs are normal. Magnesium 1.8. Troponin is negative. Sputum cultures, MRSA cultures, urine cultures, blood cultures negative. IMPRESSION AND PLAN: 1. Status post ventilator dependent respiratory failure. 2. Acute exacerbation of chronic obstructive pulmonary disease. 3. Hypertension. 4. Leukocytosis with granulocytosis. 5. Bandemia. 6. Coumadin dependent atrial fibrillation. 7. Hypercarbic ventilator-dependent respiratory failure. 8. Hypercarbic hypoxic ventilator-dependent respiratory failure. 9. Type 2 [id number]-rchbijhqy diabetes mellitus with hyperglycemia. 10. Hypochloremia metabolic alkalosis. 11. Uncontrolled non-insulin requiring diabetes mellitus with hyperglycemia and hemoglobin A1c of 7.8. 12. Mild rhabdomyolysis with elevated CPK. 13 Proteinuria, microscopic hematuria. 14 Bacteriuria. 15 Morbid obesity with elevated body mass index of 32. 16. Hyperinflated lung gilliam with peribronchial thickening and bilateral chronic pulmonary changes with chronic obstructive pulmonary disease. 17. Possible severe sepsis, severe bilateral upper lobe community-acquired versus healthcare-associated ventilator dependent possible aspiration pneumonia. 18 Acute exacerbation of chronic obstructive pulmonary disease. 19. Advanced end-stage oxygen and steroid dependent chronic obstructive pulmonary disease. 20. Active nicotine addiction and dependence with history of alcohol dependence. 21. Obstructive sleep apnea. 22. Poor compliance. 23. Diabetic neuropathy. 24. Dyslipidemia and hypercholesteremia, hypertriglyceridemia. PLAN: At this time, the patient will be continued on IV antibiotics as per infectious disease recommendation up to 7 days. The patient's current medications, Mucomyst nebulizer 20% 4 mL q. 6 hours with Xopenex nebulizer 0.63 mg every 6 hours; verapamil 40 mg three times a day; Coreg 12.5 mg twice a day; Coumadin 2 mg every 48 hours; Cymbalta 30 mg daily; Diamox 250 mg twice a day for total of eight doses which will end tomorrow; doxycycline 100 mg IV q. 12; Humalog low dose sliding scale coverage; digoxin 0.125 mg p.o. daily; Lasix 40 mg p.o. daily; Lipitor 20 mg daily; Lopid 600 mg twice a day; Protonix 40 mg daily; Singulair 10 mg daily; Solu-Medrol 30 mg IV q. 12; Xopenex nebulizer every 6 hours round the clock. The patient is on BiPAP 14/6, FIO2 40%, rate of 14. The patient has been ordered out of bed, fingerstick blood sugar, STEPHANIE stockings, SCDs. The patient was seen by physical therapist. Recommendation is home with services. If the patient stays stable, the patient will be considered for discharge in a.m. Dictated and electronically signed, not read. Signing off Cedrick Shell MD, thank you. Cedrick Shell MD
[2017-07-18] MEDS: Acetylcysteine 20% Inhal Soln (4ml) IH SCH ×3 (01:18→15:37)
[2017-07-18] MEDS: Levalbuterol 0.63 MG/3 ML Inhal Soln UD IH SCH ×4 (01:19→15:37)
[2017-07-18] MEDS: Levalbuterol 0.63 MG/3 ML Inhal Soln UD IH PRN (04:47)
[2017-07-18] MEDS: Pantoprazole 40 mg EC Tab PO SCH (05:41)
[2017-07-18 07:51] LABS: ALB/GLOB RATIO 1.1 (1.1-1.8); ALKALINE PHOSPHATASE 58 U/L (38-126); ALT/SGPT 40 U/L (7-56); AST/SGOT 31 U/L (17-59); BILIRUBIN,TOTAL 0.9 mg/dL (0.2-1.3); BLOOD UREA NITROGEN 32 mg/dL (7-21); CALCIUM 9.4 mg/dL (8.4-10.5); CARBON DIOXIDE 36 mmol/L (21-33); CHLORIDE 95 mmol/L (98-107); GFR AFRICAN-AMERICAN > 60; GLUCOSE,RANDOM 170 mg/dL (70-110); POTASSIUM 4.3 mmol/L (3.6-5.0); SODIUM 136 mmol/L (132-148); TOTAL PROTEIN 7.3 g/dL (5.8-8.3)
[2017-07-18] MEDS: Insulin Lispro (humaLOG) LOW Coverage SC SCH ×2 (08:10→12:09)
--- NOTE | 2017-07-18 08:58 | CP.PCM.PN ---
Subjective - Date & Time of Evaluation Date of Evaluation: 07/18/17 Time of Evaluation: 08:55 - Subjective Subjective: PGY-[address] Shell's service Patient seen and examined at bedside. No acute distress. Patient has no complaints he states he feels better today and would like to go home. He is tolerrtaing diet, able to ambulate with walker. Objective - Vital Signs/Intake and Output Vital Signs (last 24 hours): Temp Pulse Resp BP Pulse Ox 98.3 F 62 22 134/78 97 07/17/17 17:18 07/18/17 01:17 07/17/17 17:18 07/17/17 17:23 07/17/17 17:18 Intake and Output: 07/18/17 07/18/17 06:59 18:59 Intake Total 960 Output Total 1150 Balance -190 - Medications Medications: Current Medications Acetazolamide (Diamox 250 Mg Tab) 250 mg PO BID [facility] Stop: 07/18/17 18:01 Last Admin: 07/17/17 17:22 Dose: 250 mg Acetylcysteine (Acetylcysteine 20%) 4 ml IH [id number] [facility] Last Admin: 07/18/17 07:46 Dose: Not Given Atorvastatin Calcium (Lipitor) 20 mg PO DIN [facility] Last Admin: 07/17/17 17:22 Dose: 20 mg Carvedilol (Coreg) 12.5 mg PO BID [facility] Last Admin: 07/17/17 17:22 Dose: 12.5 mg Digoxin (Lanoxin) 0.125 mg PO 1400 [facility] Last Admin: 07/17/17 13:50 Dose: 0.125 mg Duloxetine HCl (Cymbalta) 30 mg PO DAILY [facility] Last Admin: 07/17/17 10:00 Dose: 30 mg Furosemide (Lasix) 40 mg PO DAILY [facility] Last Admin: 07/17/17 10:01 Dose: 40 mg Gemfibrozil (Lopid) 600 mg PO BID [facility] Last Admin: 07/17/17 17:22 Dose: 600 mg Doxycycline Hyclate 100 mg/ (Sodium Chloride) 100 mls @ 100 mls/hr IVPB Q12 [facility] PRN Reason: Protocol Last Admin: 07/17/17 22:51 Dose: 100 mls/hr Insulin Human Lispro (Humalog Low) 0 units SC ACHS [facility] PRN Reason: Protocol Last Admin: 07/17/17 23:43 Dose: Not Given Levalbuterol HCl (Xopenex) 0.63 mg IH [id number] [facility] Last Admin: 07/18/17 07:45 Dose: 0.63 mg Levalbuterol HCl (Xopenex) 0.63 mg IH [id number] PRN PRN Reason: Shortness of Breath Last Admin: 07/18/17 04:47 Dose: 0.63 mg Methylprednisolone (Solu-Medrol) 30 mg IVP Q12H [facility] Last Admin: 07/17/17 22:51 Dose: 30 mg Montelukast Sodium (Singulair) 10 mg PO DAILY [facility] Last Admin: 07/17/17 10:01 Dose: 10 mg Pantoprazole Sodium (Protonix Ec Tab) 40 mg PO 0600 [facility] Last Admin: 07/18/17 05:41 Dose: 40 mg Verapamil HCl (Calan Tab) 40 mg PO TID [facility] Last Admin: 07/17/17 17:23 Dose: 40 mg Warfarin Sodium (Coumadin) 2 mg PO Q48H [facility] PRN Reason: Protocol Last Admin: 07/17/17 14:55 Dose: 2 mg - Labs Labs: 07/17/17 06:50 07/18/17 07:00 PT 28.7 SECONDS (9.4-12.5) H 07/17/17 06:50 INR 2.56 (0.93-1.08) H 07/17/17 06:50 APTT 29.8 Seconds (25.1-36.5) 07/17/17 06:50 - Constitutional Appears: Well - Head Exam Head Exam: ATRAUMATIC, NORMAL INSPECTION, NORMOCEPHALIC - Eye Exam Eye Exam: EOMI, Normal appearance - ENT Exam ENT Exam: Mucous Membranes Moist - Respiratory Exam Respiratory Exam: Clear to Ausculation Bilateral, NORMAL BREATHING PATTERN. absent: Decreased Breath Sounds, Rales, Rhonchi, Wheezes, Respiratory Distress, Stridor - Cardiovascular Exam Cardiovascular Exam: REGULAR RHYTHM, +S1, +S2. absent: Tachycardia, Murmur - GI/Abdominal Exam GI & Abdominal Exam: Soft, Normal Bowel Sounds. absent: Distended, Firm, Guarding, Tenderness - Extremities Exam Extremities Exam: Normal Inspection - Neurological Exam Neurological Exam: Alert, Awake, Oriented x3 - Skin Skin Exam: Dry, Intact, Normal Color, Warm Assessment and Plan - Assessment and Plan (Free Text) Assessment: 52 year old male with past medical history of COPD, CHF, Afib on coumadin, CAD, HTN, DM presents to the ED for shortness of breath and productive cough found to have respiratory failure 2/2 COPD exacerbation. Patient required intubation on admission. He has been extubated and transferred out of the ICU. Plan: 1. acute hypercapnic respiratory failure - due to COPD exacerbation and pna - improved, s/p extubated - contine soulmedrol decreased to 30mg Q12H - continue xopenex q4H - Continue antibiotics: vancomycin, Cefepime, doxycycline day 7 - ID following, recommend 4-7 days of therapy - will consider discharging tomorrow after 7 days of antibiotics and tapering steroids 2. Sepsis - etiology most likely PNA - afebrile - blood culture negative - sputum cx- negative - urine cx- negative - procal not elevated - Continue antibiotics: vancomycin, Cefepime, doxycycline day 7, total of 7 days - ID following 3. a. fib - heart rate controlled - INR 2.56, therapeutic - continue on Coumadin 2mg q48 hours - continue digoxin, coreg 4. HTN, - controlled - Continue Coreg 12.5mg BID, Verapamil 40mg TID - Continue Digoxin 0.125mg 5. systolic CHF - Previous echo on 12/10/16 shows EF of 15-20% - MUGA scan on 07/15 was suboptimal, EF of 47% - Continue Lipitor 20mg, Gemfibrizol 600mg BID - cardiology following 6. History of DM - controlled - on Glimeperide at home - ISS- low - Target blood sugars 140-180 - Accuchecks ACHS GI/DVT protonix -Protonix -Heparin
[2017-07-18 09:13] VITALS: PULSE 80; RESP 20; TEMP 97.7; O2SAT 95
[2017-07-18] MEDS: MethylPREDNISolone 40 mg Vial IVP SCH ×2 (10:13→12:10)
--- NOTE | 2017-07-18 11:19 | PN ---
DATE: 07/17/2017 LOCATION: The patient is in room 573, bed 1. REASON FOR CONSULTATION AND FOLLOWUP: History of paroxysmal atrial fibrillation, cardiomyopathy, coronary artery disease, admitted with respiratory failure, status post intubation and later on successfully extubation. SUBJECTIVE: The patient is in sitting bed without any chest pain. He says his breathing is also better. Denies any palpitation. PHYSICAL EXAMINATION: VITAL SIGNS: Blood pressure 150/76, earlier it was 144/77, respirations 19, pulse 78, and temperature 97.5. HEENT: Head is normocephalic. Eyes, pupils normal. Conjunctivae normal. NECK: JVP low. Carotid equal. THORAX: AP diameter size increased. LUNGS: No rales. Few wheezing sounds heard. CARDIOVASCULAR: S1 and S2. ABDOMEN: Soft. No tenderness. No organomegaly. EXTREMITIES: No clubbing. No cyanosis. LABORATORY DATA: WBC 16.6, hemoglobin 13.9, hematocrit 44.3, and platelet 205. Sodium 140, potassium 4.3, BUN 26, creatinine 0.8, random glucose 150, calcium 9.3, and magnesium 1.8. AST and ALT normal. Troponin 0.02. DIAGNOSES: Nonischemic cardiomyopathy with normal coronaries, chronic obstructive pulmonary disease, active tobacco abuse, admitted with exacerbation of chronic obstructive pulmonary disease, status post respiratory failure, status post intubation and now successfully extubated. Last echocardiogram showed of ejection fraction of 15% to 20%, prior echocardiogram had shown an ejection fraction of 35%. PLAN: The patient's prothrombin time today is 28.7, his INR 2.56, which is therapeutic. We will continue warfarin 2 mg q.48 hours, verapamil 40 t.i.d., acetazolamide 250 mg p.o. b.i.d., presently 8 doses ordered, doxycycline 100 mg IV q.12 hours, digoxin 0.125 daily, furosemide 40 p.o. daily, Lipitor 20 mg daily, Lopid 600 mg b.i.d., Protonix 40 mg p.o. daily, Singulair 10 mg daily, methylprednisolone 30 mg IV q.12 hours, and Xopenex hand nebulizer therapy. We will continue present therapy and we will follow with you. Ron Rubio MD [facility] # [id number]
--- NOTE | 2017-07-18 12:52 | CP.PCM.PN ---
Subjective - Date & Time of Evaluation Date of Evaluation: 07/18/17 Time of Evaluation: 11:15 - Subjective Subjective: Comfortable in bed, breathing better, no fevers. Objective - Vital Signs/Intake and Output Vital Signs (last 24 hours): Temp Pulse Resp BP Pulse Ox 97.7 F 80 20 169/74 H 95 07/18/17 08:00 07/18/17 08:00 07/18/17 08:00 07/18/17 09:47 07/18/17 08:00 Intake and Output: 07/18/17 07/18/17 06:59 18:59 Intake Total 960 Output Total 1150 Balance -190 - Medications Medications: Current Medications Acetazolamide (Diamox 250 Mg Tab) 250 mg PO BID [facility] Stop: 07/18/17 18:01 Last Admin: 07/18/17 09:48 Dose: 250 mg Acetylcysteine (Acetylcysteine 20%) 4 ml IH [id number] [facility] Last Admin: 07/18/17 07:46 Dose: Not Given Atorvastatin Calcium (Lipitor) 20 mg PO DIN [facility] Last Admin: 07/17/17 17:22 Dose: 20 mg Carvedilol (Coreg) 12.5 mg PO BID [facility] Last Admin: 07/18/17 09:47 Dose: 12.5 mg Digoxin (Lanoxin) 0.125 mg PO 1400 [facility] Last Admin: 07/17/17 13:50 Dose: 0.125 mg Duloxetine HCl (Cymbalta) 30 mg PO DAILY [facility] Last Admin: 07/18/17 09:47 Dose: 30 mg Furosemide (Lasix) 40 mg PO DAILY [facility] Last Admin: 07/18/17 09:47 Dose: 40 mg Gemfibrozil (Lopid) 600 mg PO BID [facility] Last Admin: 07/18/17 09:48 Dose: 600 mg Doxycycline Hyclate 100 mg/ (Sodium Chloride) 100 mls @ 100 mls/hr IVPB Q12 [facility] PRN Reason: Protocol Last Admin: 07/18/17 09:46 Dose: 100 mls/hr Insulin Human Lispro (Humalog Low) 0 units SC ACHS [facility] PRN Reason: Protocol Last Admin: 07/17/17 23:43 Dose: Not Given Levalbuterol HCl (Xopenex) 0.63 mg IH [id number] [facility] Last Admin: 07/18/17 07:45 Dose: 0.63 mg Levalbuterol HCl (Xopenex) 0.63 mg IH [id number] PRN PRN Reason: Shortness of Breath Last Admin: 07/18/17 04:47 Dose: 0.63 mg Methylprednisolone (Solu-Medrol) 30 mg IVP Q12H [facility] Last Admin: 07/18/17 10:13 Dose: 30 mg Montelukast Sodium (Singulair) 10 mg PO DAILY [facility] Last Admin: 07/18/17 10:13 Dose: 10 mg Pantoprazole Sodium (Protonix Ec Tab) 40 mg PO 0600 [facility] Last Admin: 07/18/17 05:41 Dose: 40 mg Verapamil HCl (Calan Tab) 40 mg PO TID [facility] Last Admin: 07/18/17 09:48 Dose: 40 mg Warfarin Sodium (Coumadin) 2 mg PO Q48H [facility] PRN Reason: Protocol Last Admin: 07/17/17 14:55 Dose: 2 mg - Labs Labs: 07/17/17 06:50 07/18/17 07:00 PT 28.7 SECONDS (9.4-12.5) H 07/17/17 06:50 INR 2.56 (0.93-1.08) H 07/17/17 06:50 APTT 29.8 Seconds (25.1-36.5) 07/17/17 06:50 - Constitutional Appears: Non-toxic - Head Exam Head Exam: NORMAL INSPECTION - ENT Exam ENT Exam: Mucous Membranes Moist - Neck Exam Neck Exam: absent: Lymphadenopathy, Meningismus - Respiratory Exam Respiratory Exam: Decreased Breath Sounds - Cardiovascular Exam Cardiovascular Exam: +S1, +S2 - GI/Abdominal Exam GI & Abdominal Exam: Soft. absent: Tenderness Assessment and Plan - Assessment and Plan (Free Text) Plan: Assessment Consider severe sepsis probably due to severe upper lobe pneumonia on top of COPD exacerbation and CHF, clinically improved history of ESBL E. coli HCAP in 2014 CHF with EF 25% COPD history of ESBL E. coli pneumonia in 04/2015 history of recent NSTEMI atrial fibrillation on anticoagulation DM history of alcohol abuse Plan on Cefepime and Doxycycline day 7 - complete up to 7 days of therapy (december d/c antibiotics today); CXR reviewed which showed upper lobe infiltrates
--- NOTE | 2017-07-18 13:51 | PN ---
DATE: 07/18/2017 LOCATION: The patient is in room 573, bed 1. REASON FOR CONSULTATION AND FOLLOWUP: History of paroxysmal atrial fibrillation, cardiomyopathy, and respiratory failure status post intubation and status post successful extubation. SUBJECTIVE: The patient is in sitting bed without any chest pain or palpitation. He says his breathing is also getting better. PHYSICAL EXAMINATION: VITAL SIGNS: Blood pressure 169/93, respirations 20, pulse 80, and temperature 97.7. HEENT: Head is normocephalic. Eyes, pupils normal. Conjunctivae normal. NECK: JVP low. Carotid equal. THORAX: AP diameter slightly increased. LUNGS: No rales. Few wheezing, distant breathing breath sounds. CARDIOVASCULAR: S1 and S2. ABDOMEN: Soft. No tenderness. No organomegaly. Bowel sounds normal. EXTREMITIES: No clubbing. No cyanosis. LABORATORY DATA: WBC 16.6, hemoglobin 13.9, hematocrit 44.3, and platelets 205. Sodium 136, potassium 4.3, BUN 32, creatinine 0.9, and blood glucose 170. AST and ALT normal. Total protein and albumin normal. DIAGNOSES: Nonischemic cardiomyopathy with normal coronaries, chronic obstructive pulmonary disease, and active tobacco abuse, was admitted with exacerbation of chronic obstructive pulmonary disease, status post respiratory failure, status post intubation and status post successful extubation. Last echocardiogram showed left ventricular ejection fraction of 15% to 20% and prior echocardiogram had shown ejection fraction of 35%. PLAN: Continue Coreg 12.5 b.i.d., warfarin 2 mg daily. The patient is getting Diamox 250 mg b.i.d., Vibramycin 100 mg IV q. 12 hours, digoxin 0.125 daily, furosemide 40 p.o. daily, Lipitor 20 daily, Lopid 600 mg p.o. b.i.d., Protonix 40 daily, Singulair 10 mg daily, Solu-Medrol 30 mg IV q. 12 hours, and Xopenex hand nebulizer therapy. We will follow. Ron Rubio MD
[2017-07-18 14:41] VITALS: BP 132/65
--- NOTE | 2017-07-19 03:36 | DS ---
LOCATION: The patient is seen in room 573, bed #1. SUBJECTIVE: The patient denies any chest pain. Denies shortness of breath. Denies hemoptysis, hematemesis, melena. Denies fever, chills. PHYSICAL EXAMINATION: VITAL SIGNS: T-max 97.7, heart rate 80, blood pressure in the last 24 hours 134/78, 169/93 121/75, respirations 20, O2 sat is 93-95% to 96-97%. INTAKE/OUTPUT: Intake is 540, output is 1150. HEENT: Head examination is normocephalic, atraumatic. HEENT examination shows pink conjunctivae. Anicteric sclerae. No oropharyngeal lesion. No neck rigidity. CHEST: Examination shows kyphosis. LUNGS: Examination shows no audible rales. No audible crackles. No audible wheezing. No audible rhonchi. CARDIOVASCULAR: Examination S1, S2, regular rhythm. Questionable systolic murmur left sternal border, right second intercostal space. ABDOMEN: Obese, protuberant. GENITALIA: Male. RECTAL: Examination is deferred. EXTREMITIES: Shows no pitting edema. No calf tenderness. No Homans' sign. NEUROLOGIC: The patient is alert, awake, oriented x3. Cranial nerves II-XII grossly intact. Gait examination is independent. VASCULAR: Palpable pulses. MUSCULOSKELETAL: Examination shows a body mass index of 35.2. DIAGNOSTICS: From 07/18, sodium 136, potassium 4.3, chloride 95, CO2 36, anion gap 10, BUN 0.32, creatinine 0.9, GFR greater than 60, glucose 170, fingerstick blood sugar 195, 180, 226, 150, hemoglobin A1c 7.8, calcium 9.4, LFTs are normal. Microbiology, sputum cultures, smear cultures, urine and blood cultures are negative. FINAL IMPRESSION, PLAN AND DISCHARGE DIAGNOSIS: Status post ventilator-dependent respiratory failure. DIAGNOSES: 1. Acute exacerbation of chronic obstructive pulmonary disease. 2. Acute exacerbation of chronic obstructive pulmonary disease with bronchospasm. 3. Acute hypercarbic ventilator-dependent respiratory failure. 4. Respiratory acidosis with hypercarbia and hypercarbic hypoxic respiratory failure. 5. Severe sepsis with ventilator-dependent respiratory failure secondary to bilateral upper lobe healthcare-associated versus community-acquired versus ventilator-dependent aspiration pneumonia. 6. Low grade fever. 7. History of paroxysmal atrial fibrillation. 8. Hypertension. 9. Tachycardia. 10. Tachypnea. 11. Morbid obesity. 12. History of active nicotine addiction and history of alcohol dependence in the past. 13. Leukocytosis. 14. Normocytic anemia. 15. Granulocytosis. 16. Bandemia. 17. Coumadin-dependent atrial fibrillation. 18. Hypercarbia, hypoxemia with respiratory acidosis. 19. Metabolic alkalosis. 20. Prerenal kidney injury. 21. Qiu-ygvborj-npleztsde diabetes mellitus with hyperglycemia and hemoglobin A1c of 7.8. 22. Nonischemic dilated cardiomyopathy. 23. Systolic congestive heart failure. 24. Mild rhabdomyolysis with elevated CPK. 25. Proteinuria. 26. Microscopic hematuria. 27. Bacteriuria. 28. History of poor compliance. 29. Possible severe sepsis secondary to ventilator-dependent bilateral upper lobe pneumonia with acute exacerbation of chronic obstructive pulmonary disease and acute exacerbation of systolic congestive heart failure. 30. Nonischemic dilated cardiomyopathy. 31. Mild left ventricular dysfunction with diffuse left ventricular hypokinesis, ejection fraction was 47% with normal right ventricular wall motion. 32. Left bundle-branch block. PLAN: At this time, the patient is cleared by all subspecialty for discharge during this hospitalization, the patient and the patient's daughter and the next of kin were explained about the patient's overall guarded to poor prognosis. If the patient continues to be noncompliant with medication, diet and smoking and possible alcohol use, the patient and the family was explained about all the worse consequences including of the patient's underlying multiple comorbidities, decompensation. During this hospitalization, the patient and the patient's daughter were explained on multiple occasions regarding the patient's diagnostic test results, recommendation by all the physicians involved in the care of the patient. It was explained to the patient during this hospitalization and all discharge instructions were extensively given to the patient upon discharge. The patient is to be discharged today. DISCHARGE MEDICATIONS: Mucomyst nebulizer treatment with DuoNeb nebulizer treatment every 6 hours and Xopenex nebulizer treatment 0.63 mg every 6 hours. The patient is also to resume Ventolin HFA 2 puffs q.i.d., allopurinol 300 mg daily, Lipitor 20 mg daily, Coreg 12.5 twice a day, vitamin D3 2000 IU daily, digoxin 0.125 daily, Cymbalta 30 mg daily, folic acid 1 mg daily, Lasix 40 mg b.i.d. or t.i.d., gemfibrozil, Lopid 600 mg twice a day, Amaryl 2 mg once a day with breakfast, magnesium oxide 400 mg 2 tablets twice a day, Singulair 10 mg daily Protonix 40 mg daily, Prilosec 40 mg daily, prednisone tapering 40 mg daily for 3 days, then 30 mg daily for 3 days, then 20 mg daily for 3 days, then 10 mg daily to be maintained, thiamine 100 mg daily, Calan (verapamil) 40 mg 3 times a day. Patient is also discharged on Coumadin 2 mg every 48 hours, every 2 days. Patient is to be discharged home. Patient is to follow up with Dr. Shell in 1 week. Discharge medications as per updated ambulatory orders plus new scripts. The patient was advised weight loss about 50 pounds. The patient was counseled about cessation of smoking. The patient's case was referred to case management. The patient's case was referred to case management and social economist for discharge planning. The patient was referred to [facility] aide for durable medical equipment. The patient was found to be qualifying for rollator with a seat and which will be delivered to the patient's home. The patient at the time of discharge declined all services. The patient was also advised to follow up with the pulmonary physician for his repeat sleep apnea study and for his obstructive sleep apnea. Time spent in the entire discharge process more than 45 minutes. Cedrick Shell MD
== END 2017-07-18 16:49 | disposition home or self-care (01) | DRG 584 ==
LOC: ED 03:28 → ERH 03:53 → CCU 06:03 → 2RNO 07-14 07:17 → 3RSO 07-16 11:14 → 5RSO 07-16 22:30
PROVIDERS: ADMIT Internal Medicine; ATTEND Internal Medicine
PROC: 5A1935Z Respiratory Ventilation, Less than 24 Consecutive Hours (ICD-10-PCS; principal; 2017-07-12)
PROC: 0BH17EZ Insertion of Endotracheal Airway into Trachea, Via Natural or Artificial Opening (ICD-10-PCS; 2017-07-12)
DX: A41.9 Sepsis, unspecified organism (principal); J96.01 Acute respiratory failure with hypoxia; I47.2 Ventricular tachycardia; Z99.11 Dependence on respirator [ventilator] status; J18.9 Pneumonia, unspecified organism; I11.0 Hypertensive heart disease with heart failure; E87.4 Mixed disorder of acid-base balance; I42.0 Dilated cardiomyopathy; E83.42 Hypomagnesemia; I50.22 Chronic systolic (congestive) heart failure; M62.82 Rhabdomyolysis; J96.22 Acute and chronic respiratory failure with hypercapnia; E11.40 Type 2 diabetes mellitus with diabetic neuropathy, unspecified; J44.1 Chronic obstructive pulmonary disease with (acute) exacerbation; E87.8 Other disorders of electrolyte and fluid balance, not elsewhere classified; I08.1 Rheumatic disorders of both mitral and tricuspid valves; J44.0 Chronic obstructive pulmonary disease with (acute) lower respiratory infection; E86.1 Hypovolemia; I48.0 Paroxysmal atrial fibrillation; E11.65 Type 2 diabetes mellitus with hyperglycemia; E83.39 Other disorders of phosphorus metabolism; E66.01 Morbid (severe) obesity due to excess calories; R65.20 Severe sepsis without septic shock; J98.01 Acute bronchospasm; D64.9 Anemia, unspecified; E55.9 Vitamin D deficiency, unspecified; E78.00 Pure hypercholesterolemia, unspecified; E78.1 Pure hyperglyceridemia; E78.5 Hyperlipidemia, unspecified; E83.52 Hypercalcemia; F17.210 Nicotine dependence, cigarettes, uncomplicated; G47.33 Obstructive sleep apnea (adult) (pediatric); I25.10 Atherosclerotic heart disease of native coronary artery without angina pectoris; I25.2 Old myocardial infarction; I44.7 Left bundle-branch block, unspecified; R31.29 Other microscopic hematuria; R79.1 Abnormal coagulation profile; Z68.35 Body mass index [BMI] 35.0-35.9, adult; Z79.01 Long term (current) use of anticoagulants; Z79.52 Long term (current) use of systemic steroids; Z79.899 Other long term (current) drug therapy; Z87.01 Personal history of pneumonia (recurrent); Z87.440 Personal history of urinary (tract) infections; Z91.14 Patient's other noncompliance with medication regimen; Z91.19 Patient's noncompliance with other medical treatment and regimen; Z99.81 Dependence on supplemental oxygen; F41.9 Anxiety disorder, unspecified; Z91.048 Other nonmedicinal substance allergy status; F10.21 Alcohol dependence, in remission

== ENCOUNTER 2017-08-10 22:37 | Emergency (ER) | payer OTHER ==
[2017-08-10 22:37] VITALS: PULSE 65
[2017-08-10 22:43] VITALS: BMI 36.4
[2017-08-10] MEDS ORDERED: Albuterol 0.083% Inhal Sol (2.5 mg/3 mL) UD ONE (22:47)
[2017-08-10 22:54] VITALS: TEMP 98.7
--- NOTE | 2017-08-10 22:56 | ED PDOC ---
Arrival/HPI - General Chief Complaint: Shortness Of Breath Time Seen by Provider: 08/10/17 22:42 Historian: Patient - History of Present Illness Narrative History of Present Illness (Text): 08/10/17 22:47 A 52 year old male, whose past medical history includes COPD (home oxygen taken during the night when sleeping), CHF (intakes water pills), presents to the emergency department complaining of shortness of breath since last night. Patient reports also experiencing slight cough with phelgm and chills. Patient denies any pain, fever, or any other complaints. Also, patient mentions he " quit smoking yesterday", although he has aroma of smoke. PMD: Dr. Cedrick Shell Time/Duration: Other (last night) Symptom Onset: Gradual Symptom Course: Unchanged Past Medical History - Provider Review Nursing Documentation Reviewed: Yes - Past History Past History: No Previous - Infectious Disease Hx of Infectious Diseases: None - Tetanus Immunization Tetanus Immunization: Unknown - Past Medical History Past Medical History: No Previous - Cardiac Hx Cardiac Arrhythmia: Yes (a fib) Hx Congestive Heart Failure: Yes Hx Hypertension: Yes - Pulmonary Hx Respiratory Disorders: Yes (SOB [id number]) Hx Bronchitis: Yes Hx Chronic Obstructive Pulmonary Disease (COPD): Yes Hx Pneumonia: Yes Hx Sleep Apnea: Yes - Neurological HX Cerebrovascular Accident: No - HEENT Hx HEENT Disorder: No Hx Blind: No Hx Cataracts: No Hx Deafness: No Hx Difficulty Chewing: No Hx Epistaxis: No Hx Glaucoma: No Hx Macular Degeneration: No - Renal Hx Renal Failure: No - Endocrine/Metabolic Hx Diabetes Mellitus Type 2: Yes - Hematological/Oncological Hx Unexplained Bleeding: No - Integumentary Other/Comment: multiple skin discolorations to ble - Musculoskeletal/Rheumatological Hx Falls: No - Gastrointestinal Hx Gastrointestinal Disorders: Yes (obese) Other/Comment: umbilical hernia repair - Genitourinary/Gynecological Hx Hematuria: Yes Hx Urinary Tract Infection: Yes - Psychiatric Hx Anxiety: Yes Hx Substance Use: No - Surgical History Other/Comment: umbilical hernia sx - Anesthesia Hx Anesthesia: Yes Hx Anesthesia Reactions: No Hx Malignant Hyperthermia: No - Suicidal Assessment Feels Threatened In Home Enviroment: No Family/Social History - Physician Review Nursing Documentation Reviewed: Yes Family/Social History: No Known Family HX Smoking Status: Heavy Smoker > 10 Cigarettes Daily Hx Alcohol Use: No Amount per day: 2 Hx Substance Use: No Hx Substance Use Treatment: No Allergies/Home Meds Allergies/Adverse Reactions: Allergies cat dander Allergy (Uncoded 07/12/17 04:25) SHORTNESS OF BREATH Home Medications: Home Meds Medication Instructions Recorded Confirmed Allopurinol [Zyloprim] 300 mg PO DAILY 01/01/16 07/12/17 Furosemide [Lasix] 40 mg PO TID 01/01/16 07/12/17 Albuterol HFA [Ventolin HFA 90 2 puff IH [id number] PRN 02/14/16 07/12/17 mcg/actuation (8 g)] Albuterol 0.083% [Albuterol 0.083% 1 vial IH QID 12/08/16 07/12/17 Inhal Poly (2.5 mg/3 ml) UD] Cholecalciferol (Vitamin D3) 2,000 unit PO DAILY 12/08/16 07/12/17 [Vitamin D3] Magnesium Oxide [Magox 400] 2 tab PO BID 12/08/16 07/12/17 Glimepiride [Amaryl] 2 mg PO ACB 07/12/17 07/12/17 Warfarin [Coumadin] 2 mg PO QOTHERDAY 07/12/17 07/12/17 Review of Systems - Physician Review All systems were reviewed & negative as marked: Yes - Review of Systems Constitutional: Night Sweats. absent: Fevers Respiratory: SOB, Cough (slight cough with phlegm) Cardiovascular: absent: Chest Pain Gastrointestinal: absent: Abdominal Pain Physical Exam Vital Signs Temp Pulse Resp BP Pulse Ox 08/11/17 00:27 63 19 128/73 95 08/10/17 23:00 32 H 08/10/17 22:51 98.7 F 81 32 H 130/83 98 Pain Distress: None Mental Status: Positive for: Alert and Oriented X 3 (patient is cooperative and follows commands) - Systems Exam Mouth: Present: Moist Mucous Membranes Respiratory/Chest: Present: Respiratory Distress, Accessory Muscle Use, Wheezes , Decreased Breath Sounds, Rhonchi Cardiovascular: Present: Other (occasional extrasistole) Abdomen: Present: Normal Bowel Sounds. No: Tenderness, Distention, Peritoneal Signs Upper Extremity: Present: NORMAL PULSES (+2). No: Cyanosis, Edema Lower Extremity: No: Edema Medical Decision Making ED Course and Treatment: 08/10/17 22:52 Impression: 52 year old male with shortness of breath. Physical exam shows respiratory distress, using accessory muscle for breathing, rhonchi, wheezing, decreased air sounds, no cyanosis; speaks in half sentences; occasional extrasistole; moist mucous membranes; abdomen soft, non-tender; no edema to lower extremities, +2 pulses; is alert and oriented x3 and cooperative. Plan: -- EKG -- Chest X-ray -- Labs -- Albuterol -- SOLU-Medrol -- Blood Culture -- Reassess and disposition Progress Notes: EKG: Ordered, reviewed, and independently interpreted the EKG. Rate : 79 BPM Rhythm : NSR Interpretation : Frequent unifocal PVCs, interventricular conduction delay, LBBB , non-specific ST- and T- wave changes. Comparison : No previous EKG for comparison. 08/11/17 00:10 Patient currently feeling better. No accessory muscle usage for breathing. Saturation level at 97% on 2 liters (always on this at home). 08/11/17 00:27 Chest X-ray read and interpreted by me, which shows left atrial enlargement, and no active pulmonary disease. - Lab Interpretations Lab Results: 08/10/17 22:50 08/10/17 22:50 Lab Results 08/10/17 22:50: Sodium 139, Potassium 3.9, Chloride 83 L, Carbon Dioxide 44 H D , Anion Gap 16, BUN 23 H, Creatinine 1.0, Est GFR ( Amer) > 60, Est GFR ( Non-Af Amer) > 60, Random Glucose 216 H, Calcium 9.5, Total Bilirubin 0.6, AST 50, ALT 63 H, Alkaline Phosphatase 74, Lactate Dehydrogenase 900 H, Total Creatine Kinase 41, Troponin I 0.05 D, NT-Pro-B Natriuret Pep 298, Total Protein 7.4, Albumin 4.2, Globulin 3.2, Albumin/Globulin Ratio 1.3 08/10/17 22:50: WBC 8.5 D, RBC 5.09, Hgb 15.4, Hct 48.5, MCV 95.3, MCH 30.3, MCHC 31.8, RDW 15.7 H, Plt Count 239, MPV 10.5, Gran % 61.9, Lymph % (Auto) 15.6 L, [place] % (Auto) 18.2 H, Eos % (Auto) 3.7, Baso % (Auto) 0.6, Gran # 5.24, Lymph # 1.3, [place] # 1.5 H, Eos # 0.3, Baso # 0.05 I have reviewed the lab results: Yes - RAD Interpretation Radiology Orders: 08/10/17 23:01 CHEST PORTABLE [RAD] Stat - Medication Orders Current Medication Orders: Discontinued Medications Albuterol Sulfate (Albuterol 0.5% Inhal Poly (2.5 Mg/0.5 Ml) Ud) 10 mg IH STAT STA Stop: 08/10/17 23:01 Last Admin: 08/10/17 23:14 Dose: Albuterol Sulfate (Albuterol 0.083% Inhal Poly (2.5 Mg/3 Ml) Ud) 10 mg INH STAT STA Stop: 08/10/17 23:14 Last Admin: 08/10/17 23:14 Dose: Methylprednisolone (Solu-Medrol) 125 mg IVP STAT STA Stop: 08/10/17 23:01 Last Admin: 08/10/17 23:13 Dose: 125 mg IVP Administration Document 08/10/17 23:13 RD (Rec: 08/10/17 23:13 RD [id number]) Charges for Administration # of IVP Administrations 1 - Scribe Statement The provider has reviewed the documentation as recorded by the Petrona Melgoza Provider Scribe Attestation: All medical record entries made by the Scribdeion were at my direction and personally dictated by me. I have reviewed the chart and agree that the record accurately reflects my personal performance of the history, physical exam, medical decision making, and the department course for this patient. I have also personally directed, reviewed, and agree with the discharge instructions and disposition. Disposition/Present on Arrival - Present on Arrival Any Indicators Present on Arrival: No History of DVT/PE: No History of Uncontrolled Diabetes: No Urinary Catheter: Yes (inserted in er) History of Decub. Ulcer: No History Surgical Site Infection Following: None - Disposition Have Diagnosis and Disposition been Completed?: Yes Diagnosis: COPD exacerbation, Acute exacerbation of chronic obstructive pulmonary disease (COPD) Disposition: HOME/ ROUTINE Disposition Time: 03:55 Patient Plan: Discharge Condition: FAIR Discharge Instructions (ExitCare): COPD (Chronic Obstructive Pulmonary Disease ) (ED) Print Language: YI Prescriptions: Azithromycin [Z-Mahendra] 250 mg PO DAILY #6 tab Prednisone [Deltasone] 20 mg PO DAILY #5 tablet Referrals: [facility] [place] [Outside] - Follow up with primary Forms: [employer] (Icelandic)
[2017-08-10] MEDS ORDERED: Albuterol 0.5% Inhal Sol (2.5 mg/0.5 ml) UD IH STA (23:00)
[2017-08-10] MEDS ORDERED: Albuterol 0.083% Inhal Sol (2.5 mg/3 mL) UD INH STA (23:13)
[2017-08-10 23:16] LABS: BASO # 0.05 K/mm3 (0.0-2.0); BASO % 0.6 % (0.0-3.0); EOS # 0.3 (0.0-0.7); EOS % 3.7 % (1.5-5.0); GRAN # 5.24 (1.4-6.5); GRAN % 61.9 % (50.0-68.0); HEMATOCRIT 48.5 % (42.0-52.0); LYMPH # 1.3 (1.2-3.4); LYMPH % 15.6 % (22.0-35.0); MEAN CELL VOLUME 95.3 fl (80.0-105.0); MEAN CORPUSCULAR HEMOGLOBIN 30.3 pg (25.0-35.0); MEAN CORPUSCULAR HGB CONC 31.8 g/dl (31.0-37.0); MEAN PLATELET VOLUME 10.5 fl (7.0-11.0); MONO # 1.5 (0.1-0.6); MONO % 18.2 % (1.0-6.0); RED CELL DISTRIBUTION WIDTH 15.7 % (11.5-14.5); WHITE BLOOD COUNT 8.5 10^3/ul (4.5-11.0)
[2017-08-10 23:42] LABS: TROPONIN I 0.05 ng/mL
[2017-08-11 00:15] LABS: ALB/GLOB RATIO 1.3 (1.1-1.8); ALKALINE PHOSPHATASE 74 U/L (38-126); ALT/SGPT 63 U/L (7-56); AST/SGOT 50 U/L (17-59); BILIRUBIN,TOTAL 0.6 mg/dL (0.2-1.3); BLOOD UREA NITROGEN 23 mg/dL (7-21); CALCIUM 9.5 mg/dL (8.4-10.5); CARBON DIOXIDE 44 mmol/L (21-33); CHLORIDE 83 mmol/L (98-107); GFR AFRICAN-AMERICAN > 60; GLUCOSE,RANDOM 216 mg/dL (70-110); POTASSIUM 3.9 mmol/L (3.6-5.0); SODIUM 139 mmol/L (132-148); TOTAL PROTEIN 7.4 g/dL (5.8-8.3)
[2017-08-11 00:28] VITALS: BP 128/73; PULSE 63; RESP 19; O2SAT 95
--- NOTE | 2017-08-11 20:07 | CARD ---
APPROVED REPORT EKG Measurement Heart [id number] <Conclusion> Sinus rhythm with frequent premature ventricular complexes and fusion complexes Incomplete left bundle branch block Nonspecific ST abnormality Abnormal ECG
--- NOTE | 2017-08-13 08:59 | RAD ---
HISTORY: sob COMPARISON: Comparison made with prior study dated 07/15/2017. FINDINGS: LUNGS: Minor right basilar atelectasis. PLEURA: No significant pleural effusion identified, no pneumothorax apparent. CARDIOVASCULAR: Heart appears enlarged. OSSEOUS STRUCTURES: No significant abnormalities. VISUALIZED UPPER ABDOMEN: Normal. OTHER FINDINGS: None. IMPRESSION: Minor right basilar atelectasis
== END 2017-08-11 00:50 | disposition home or self-care (01) ==
LOC: ED 22:37
DX: J44.1 Chronic obstructive pulmonary disease with (acute) exacerbation (principal); E11.9 Type 2 diabetes mellitus without complications; I48.91 Unspecified atrial fibrillation; I50.9 Heart failure, unspecified; I10 Essential (primary) hypertension; F17.210 Nicotine dependence, cigarettes, uncomplicated
CPT/HCPCS: 80053; 82550; 83615; 83880; 84484; 85025; 87040; 93005; 96374; 99284; J2930

== ENCOUNTER 2018-01-09 22:12 | Inpatient (IN) | payer OTHER ==
[2018-01-09 22:12] VITALS: PULSE 65; BMI 36.4
[2018-01-09] MEDS: Albuterol-Ipratrop 3 mg / 0.5 (3 ml) UD IH SCH ×3 (22:41→23:04)
[2018-01-09 22:53] LABS: BASO # 0.02 K/mm3 (0.0-2.0); BASO % 0.1 % (0.0-3.0); EOS # 0.2 (0.0-0.7); EOS % 0.7 % (1.5-5.0); GRAN # 22.32 (1.4-6.5); GRAN % 86.1 % (50.0-68.0); HEMOGLOBIN 12.8 g/dL (14.0-18.0); LYMPH # 1.3 (1.2-3.4); MEAN CELL VOLUME 92.8 fl (80.0-105.0); MEAN CORPUSCULAR HEMOGLOBIN 30.8 pg (25.0-35.0); MEAN CORPUSCULAR HGB CONC 33.2 g/dl (31.0-37.0); MEAN PLATELET VOLUME 10.1 fl (7.0-11.0); MONO # 2.1 (0.1-0.6); MONO % 8.1 % (1.0-6.0); PLATELET COUNT 353 10^3/uL (120.0-450.0); RBC 4.16 10^6/uL (3.5-6.1); RED CELL DISTRIBUTION WIDTH 14.5 % (11.5-14.5)
[2018-01-09 22:59] LABS: WHITE BLOOD COUNT 25.9 10^3/ul (4.5-11.0)
[2018-01-09 23:16] LABS: BLOOD UREA NITROGEN 20 mg/dL (7-21); CALCIUM 9.1 mg/dL (8.4-10.5); GFR AFRICAN-AMERICAN > 60; GFR NON-AFRICAN AMERICAN > 60
[2018-01-09 23:18] LABS: TROPONIN I 0.02 ng/mL
[2018-01-09] MEDS ORDERED: cefTRIAXone 2 GM IN NS 2 GM/100 ML BAG IVPB STA (23:20)
[2018-01-09] MEDS ORDERED: Azithromycin 500MG/NS 250ml 500 MG/250 ML BAG IVPB STA (23:21)
[2018-01-09 23:22] LABS: ARTERIAL BLOOD GAS HEMOGLOBIN 12.5 g/dL (11.7-17.4); ARTERIAL BLOOD GAS O2 CAPACITY 17.1 mL/dl (16-24); ARTERIAL BLOOD GAS O2 SAT 99.4 % (95-98); ARTERIAL BLOOD GAS PCO2 68 mm/Hg (35-45); ARTERIAL BLOOD GAS PH 7.39 (7.35-7.45); ARTERIAL BLOOD GAS TCO2 43.3 mmol.L (22-28)
[2018-01-09 23:26] LABS: ARTERIAL BLOOD GAS HCO3 41.2 mmol/L (21-28)
--- NOTE | 2018-01-09 23:26 | ED PDOC ---
Arrival/HPI <Sadi Rodriguez - Last Filed: 01/10/18 01:08> - General Historian: Patient - History of Present Illness Time/Duration: Prior to Arrival Symptom Onset: Gradual Symptom Course: Worsening Activities at Onset: Rest Context: Home <Dante Ch - Last Filed: 01/10/18 04:00> - General Chief Complaint: Shortness Of Breath Time Seen by Provider: 01/09/18 22:30 - History of Present Illness Narrative History of Present Illness (Text): 01/09/18 23:24 Patient is a 52 year old male with a past medical history of COPD ( uses 3L of O2 at home), pneumonia, CHF (EF 15-20%), Atrial fibrillation on coumadin, CAD, hypertension, diabetes mellitus who presents with complaints of shortness of breath and productive cough (green sputum) x 2 days. As per patient he called the paramedics yesterday because he was afraid of possibly having pneumonia once again. Paramedics came, patient had a breathing treatment and expectorated a large amount of sputum and states after he felt much better and opted to not go to the hospital. However today he states he began feeling the same shortness of breath and the coughing associated with fevers and chills so he decided to go to the hospital this time. Patient admits to being around sick contacts this past week (ex- and daughter). Admits to fevers, chills, productive cough with green sputum, and shortness of breath. Denies nausea, vomiting, diarrhea, abdominal pain, headache, body aches, dizziness, weakness. Patient states as of late his wbc was increasing possibly due to steroids (was originally taking 30 mg per day) but has since then cut down to 10 mg per day except for today where he took 20 mg. PMD: Formerly Dr Shell; patient is very non-compliant Allergies: NKDA, Cat dander Medications: Lipitor 20mg, Albuterol, Singulair 10mg, Coumadin 2mg qod, Folic acid, cymbalta 30mg, Thiamine, Allopurinol 300mg, Digoxin 0.125mg, Vitamin D3, Verapamil 40mg TID, Protonix, Coreg 12.5mg BID, Lasix 40mg TID, Glimeperide 2mg , Gemfibrizol 600mg BID, Prednisone 10mg Medical Hx: COPD, CHF(EF 15-20%), Afib on coumadin, CAD, HTN, DM Surgical Hx: umbilical hernia repair Social Hx: Smokes 1.5 ppd x 20 years now currently smokes 9 cigarettes per day, denies alcohol, drug use; currently living with ex- however was supposed to move in with his friend tomorrow morning. Family Hx: non-contributory (Dante Ch) Past Medical History - Provider Review Nursing Documentation Reviewed: Yes - Past History Past History: No Previous - Infectious Disease Hx of Infectious Diseases: None - Tetanus Immunization Tetanus Immunization: Unknown - Past Medical History Past Medical History: No Previous - Cardiac Hx Cardiac Disorders: Yes Hx Cardiac Arrhythmia: Yes (a fib) Hx Congestive Heart Failure: Yes Hx Hypertension: Yes - Pulmonary Hx Respiratory Disorders: Yes (SOB [id number]) Hx Bronchitis: Yes Hx Chronic Obstructive Pulmonary Disease (COPD): Yes Hx Emphysema: Yes Hx Pneumonia: Yes Hx Sleep Apnea: Yes - Neurological HX Cerebrovascular Accident: No - HEENT Hx HEENT Disorder: No Hx Blind: No Hx Cataracts: No Hx Deafness: No Hx Difficulty Chewing: No Hx Epistaxis: No Hx Glaucoma: No Hx Macular Degeneration: No - Renal Hx Renal Failure: No - Endocrine/Metabolic Hx Endocrine Disorders: Yes Hx Diabetes Mellitus Type 2: Yes - Hematological/Oncological Hx Unexplained Bleeding: No - Integumentary Other/Comment: multiple skin discolorations to ble - Musculoskeletal/Rheumatological Hx Falls: No - Gastrointestinal Hx Gastrointestinal Disorders: Yes (obese) Other/Comment: umbilical hernia repair - Genitourinary/Gynecological Hx Genitourinary Disorders: Yes Hx Hematuria: Yes Hx Urinary Tract Infection: Yes - Psychiatric Hx Psychophysiologic Disorder: Yes Hx Anxiety: Yes Hx Substance Use: No - Surgical History Other/Comment: umbilical hernia sx - Anesthesia Hx Anesthesia: Yes Hx Anesthesia Reactions: No Hx Malignant Hyperthermia: No - Suicidal Assessment Feels Threatened In Home Enviroment: No <Dante Ch - Last Filed: 01/10/18 04:00> Family/Social History - Physician Review Nursing Documentation Reviewed: Yes Family/Social History: Other (non-contributory) Smoking Status: Heavy Smoker > 10 Cigarettes Daily Hx Alcohol Use: Yes (quit 3 years ago) Amount per day: 2 Hx Substance Use: No Hx Substance Use Treatment: No <Dante Ch - Last Filed: 01/10/18 04:00> Allergies/Home Meds <Sadi Rodriguez - Last Filed: 01/10/18 01:08> <Dante Ch - Last Filed: 01/10/18 04:00> Allergies/Adverse Reactions: Allergies cat dander Allergy (Uncoded 07/12/17 04:25) SHORTNESS OF BREATH Home Medications: Home Meds Medication Instructions Recorded Confirmed Allopurinol [Zyloprim] 300 mg PO DAILY 01/01/16 01/10/18 Furosemide [Lasix] 40 mg PO TID 01/01/16 01/10/18 Albuterol HFA [Ventolin HFA 90 2 puff IH [id number] PRN 02/14/16 01/10/18 mcg/actuation (8 g)] Albuterol 0.083% [Albuterol 0.083% 1 vial IH QID 12/08/16 01/10/18 Inhal Poly (2.5 mg/3 ml) UD] Cholecalciferol (Vitamin D3) 2,000 unit PO DAILY 12/08/16 01/10/18 [Vitamin D3] Magnesium Oxide [Magox 400] 2 tab PO BID 12/08/16 01/10/18 Glimepiride [Amaryl] 2 mg PO ACB 07/12/17 01/10/18 Warfarin [Coumadin] 2 mg PO QOTHERDAY 07/12/17 01/10/18 Review of Systems - Physician Review All systems were reviewed & negative as marked: Yes - Review of Systems Constitutional: Fevers. absent: Fatigue, Night Sweats Eyes: absent: Vision Changes Respiratory: SOB, Cough, Sputum (green) Cardiovascular: absent: Chest Pain, Palpitations Gastrointestinal: absent: Abdominal Pain, Diarrhea, Nausea, Vomiting Genitourinary Male: absent: Dysuria Musculoskeletal: absent: Back Pain Neurological: absent: Headache, Dizziness Psychiatric: absent: Anxiety <Dante Ch - Last Filed: 01/10/18 04:00> Physical Exam Vital Signs Reviewed: Yes Temperature: Afebrile Blood Pressure: Hypertensive Pulse: Regular Respiratory Rate: Normal Appearance: Positive for: Uncomfortable Pain Distress: None Mental Status: Positive for: Alert and Oriented X 3 - Systems Exam Head: Present: Atraumatic, Normocephalic Pupils: Present: PERRL Extroacular Muscles: Present: EOMI Mouth: Present: Moist Mucous Membranes Neck: Present: Normal Range of Motion Respiratory/Chest: Present: Wheezes, Rhonchi (diffuse b/l). No: Clear to Auscultation Cardiovascular: Present: Irregular Rhythm Abdomen: Present: Normal Bowel Sounds. No: Tenderness, Peritoneal Signs Upper Extremity: Present: Normal Inspection. No: Edema Lower Extremity: Present: Normal Inspection. No: Edema Neurological: Present: GCS=15, CN II-XII Intact, Speech Normal Skin: Present: Warm, Normal Color Psychiatric: Present: Alert, Oriented x 3, Normal Insight <Dante Ch - Last Filed: 01/10/18 04:00> Vital Signs Temp Pulse Pulse Resp BP Pulse Ox 01/10/18 02:22 79 01/10/18 02:07 98 F 78 78 19 125/78 01/10/18 00:52 75 26 H 115/63 94 L 01/09/18 22:17 98.5 F 71 18 160/62 H 96 Medical Decision Making <Sadi Rodriguez - Last Filed: 01/10/18 01:08> - Lab Interpretations I have reviewed the lab results: Yes Interpretation: Abnormal lab values (WBC, Mg, Troponin 0.02 (pt's baseline)) - EKG Interpretation Interpreted by ED Physician: Yes <Dante Ch - Last Filed: 01/10/18 04:00> ED Course and Treatment: 01/10/18 00:49 Ross Vargas is a 52 year old male, who presents to the emergency department with complaint of shortness of breath and productive cough for the past 2 days. Patient has a medical history of COPD , on 3L of O2 at home, pneumonia, CHF, Atrial fibrillation on Coumadin, CAD, hypertension, and diabetes. In agreement with resident note. Patient was seen and evaluated with resident, came up with plan and treatment together. (Sadi Rodriguez) 01/10/18 00:15 Patient's previous admission required intubation. Patient is able to speak in full sentences and has an O2 Sat 97%. 01/10/18 00:[address] Romero and medical territory manager regarding case, they accept patient to being admitted to telemetry. Diagnosis: COPD exacerbation with possible pneumonia (Dante Ch) - Lab Interpretations Lab Results: 01/09/18 22:49 01/09/18 22:49 Lab Results 01/09/18 23:19: pCO2 68 H, pO2 169.0 H, HCO3 41.2 H*, ABG pH 7.39, ABG Total CO2 43.3 H, ABG O2 Saturation 99.4 H, ABG O2 Content 17.0, ABG Base Excess 13.3 H, ABG Hemoglobin 12.5, ABG Carboxyhemoglobin 3.7 H, POC ABG HHb (Measured) 0.6 , ABG Methemoglobin 0.7, ABG O2 Capacity 17.1, Hgb O2 Saturation 95.0, FiO2 40.0 01/09/18 23:18: Urine Color Yellow, Urine Appearance Clear, Urine pH 6.0, Ur Specific [place] 1.025, Urine Protein 100 H, Urine Glucose (UA) Negative, Urine Ketones Negative, Urine Blood Trace-intact H, Urine Nitrate Negative, Urine Bilirubin Negative, Urine Urobilinogen 0.2, Ur Leukocyte Esterase Negative, Urine RBC 1 - 3, Urine WBC 0 - 2, Ur Epithelial Cells 0 - 2 01/09/18 22:49: NT-Pro-B Natriuret Pep 1710 H 01/09/18 22:49: Sodium 143, Potassium 4.0, Chloride 90 L, Carbon Dioxide 38 H, Anion Gap 19, BUN 20, Creatinine 0.8, Est GFR ( Amer) > 60, Est GFR (Non- Af Amer) > 60, Random Glucose 214 H, Calcium 9.1, Phosphorus 3.1, Magnesium 1.4 L, Troponin I 0.02 D 01/09/18 22:49: WBC 25.9 H* D, RBC 4.16, Hgb 12.8 L D, Hct 38.6 L, MCV 92.8, MCH 30.8, MCHC 33.2, RDW 14.5, Plt Count 353, MPV 10.1, Gran % 86.1 H, Lymph % ( Auto) 5.0 L, [place] % (Auto) 8.1 H, Eos % (Auto) 0.7 L, Baso % (Auto) 0.1, Gran # 22.32 H, Lymph # (Auto) 1.3, [place] # (Auto) 2.1 H, Eos # (Auto) 0.2, Baso # (Auto ) 0.02, Neutrophils % (Manual) 86 H, Lymphocytes % (Manual) 6 L, Monocytes % ( Manual) 7 H, Eosinophils % (Manual) 1, Large Platelets Present - RAD Interpretation Radiology Orders: 01/09/18 22:35 CXR [CHEST PORTABLE] [RAD] Stat - Medication Orders Current Medication Orders: Albuterol/Ipratropium (Duoneb 3 Mg/0.5 Mg (3 Ml) Ud) 3 ml IH [id number] RENE Albuterol/Ipratropium (Duoneb 3 Mg/0.5 Mg (3 Ml) Ud) 3 ml IH Q2 PRN PRN Reason: Shortness of Breath Albuterol/Ipratropium (Duoneb 3 Mg/0.5 Mg (3 Ml) Ud) 3 ml IH [id number] RENE Stop: 01/10/18 07:30 Last Admin: 01/10/18 02:21 Dose: 3 ml Allopurinol (Zyloprim) 300 mg PO DAILY [facility] Atorvastatin Calcium (Lipitor) 20 mg PO DIN RENE Budesonide (Pulmicort Respules) 0.25 mg IH [id number] RENE Carvedilol (Coreg) 12.5 mg PO BID RENE Cholecalciferol (Vitamin D) 2,000 intlu PO DAILY [facility] Digoxin (Digoxin) 0.125 mg PO 1400 RENE Duloxetine HCl (Cymbalta) 30 mg PO DAILY [facility] Folic Acid (Folic Acid) 1 mg PO DAILY RENE Furosemide (Lasix) 40 mg PO TID RENE Gemfibrozil (Lopid) 600 mg PO BID RENE Glimepiride (Amaryl) 2 mg PO ACB RENE Ceftriaxone Sodium (Rocephin 1 Gram Ivpb) 1 gm in 100 mls @ 100 mls/hr IVPB DAILY RENE PRN Reason: Protocol Azithromycin (Zithromax 500mg In Ns) 500 mg in 250 mls @ 167 mls/hr IVPB DAILY RENE PRN Reason: Protocol Insulin Human Regular (Humulin R Low) 0 units SC ACHS RENE PRN Reason: Protocol Magnesium Oxide (Mag-Ox) 800 mg PO BID RENE Methylprednisolone (Solu-Medrol) 40 mg IVP Q12 RENE Montelukast Sodium (Singulair) 10 mg PO HS RENE Nicotine (Nicoderm Cq) 1 patch TD DAILY RENE Pantoprazole Sodium (Protonix Ec Tab) 40 mg PO 0600 RENE Thiamine HCl (Vitamin B1 Tab) 100 mg PO DAILY RENE Verapamil HCl ([place] Tab) 40 mg PO TID RENE Warfarin Sodium (Coumadin) 2 mg PO Q48H RENE PRN Reason: Protocol Discontinued Medications Albuterol/Ipratropium (Duoneb 3 Mg/0.5 Mg (3 Ml) Ud) 3 ml IH Q15M [facility] Stop: 01/09/18 23:16 Last Admin: 01/09/18 23:04 Dose: 3 ml Albuterol/Ipratropium (Duoneb 3 Mg/0.5 Mg (3 Ml) Ud) 3 ml IH Q15M [facility] Stop: 01/10/18 01:46 Last Admin: 01/10/18 01:35 Dose: 3 ml Ceftriaxone Sodium (Rocephin 2 Gm Ivpb) 2 gm in 100 mls @ 100 mls/hr IVPB STAT STA PRN Reason: Protocol Stop: 01/10/18 00:19 Last Admin: 01/09/18 23:47 Dose: 100 mls/hr eMAR Start Stop Document 01/09/18 23:47 CNR (Rec: 01/09/18 23:47 CNR [id number]) Intravenous Solution Start Date 01/09/18 Start Time 23:47 End Date 01/10/18 End time 00:47 Total Infusion Time 60 Azithromycin (Zithromax 500mg In Ns) 500 mg in 250 mls @ 167 mls/hr IVPB STAT STA PRN Reason: Protocol Stop: 01/10/18 00:50 Last Admin: 01/10/18 00:56 Dose: 167 mls/hr eMAR Start Stop Document 01/10/18 00:56 CNR (Rec: 01/10/18 00:57 CNR [id number]) Intravenous Solution Start Date 01/10/18 Start Time 00:56 End Date 01/10/18 End time 02:26 Total Infusion Time 90 Magnesium Sulfate/Dextrose (Magnesium Sulfate 1 Gm/100 Ml D5w) 1 gm in 100 mls @ 100 mls/hr IVPB ONCE ONE Stop: 01/10/18 00:36 Last Admin: 01/10/18 01:21 Dose: 100 mls/hr eMAR Start Stop Document 01/10/18 01:21 CNR (Rec: 01/10/18 01:21 CNR [id number]) Intravenous Solution Start Date 01/10/18 Start Time 01:21 End Date 01/10/18 End time 02:21 Total Infusion Time 60 Methylprednisolone (Solu-Medrol) 125 mg IVP STAT STA Stop: 01/09/18 22:32 Last Admin: 01/09/18 22:41 Dose: 125 mg IVP Administration Document 01/09/18 22:41 CNR (Rec: 01/09/18 22:45 CNR [id number]) Charges for Administration # of IVP Administrations 1 - PA / [employer] / Resident Statement MD/DO has reviewed & agrees with the documentation as recorded. MD/DO has examined the patient and agrees with the treatment plan. - Scribe Statement The provider has reviewed the documentation as recorded by the Scribe <Sadi Rodriguez - Last Filed: 01/10/18 01:08> <Dante Ch - Last Filed: 01/10/18 04:00> - Scribe Statement Alessandra Duncan Provider Scribe Attestation: All medical record entries made by the Scribe were at my direction and personally dictated by me. I have reviewed the chart and agree that the record accurately reflects my personal performance of the history, physical exam, medical decision making, and the department course for this patient. I have also personally directed, reviewed, and agree with the discharge instructions and disposition. (Sadi Rdoriguez) Disposition/Present on Arrival <Sadi Rodriguez - Last Filed: 01/10/18 01:08> - Present on Arrival Any Indicators Present on Arrival: No History of DVT/PE: No History of Uncontrolled Diabetes: No Urinary Catheter: No History of Decub. Ulcer: No History Surgical Site Infection Following: None - Disposition Have Diagnosis and Disposition been Completed?: Yes Disposition Time: 00:33 Patient Plan: Admission, Telemetry <Dante Ch - Last Filed: 01/10/18 04:00> - Disposition Diagnosis: Acute exacerbation of chronic obstructive pulmonary disease (COPD), Pneumonia Disposition: HOSPITALIZED Patient Problems: Current Active Problems Problem Status Onset Acute exacerbation of chronic obstructive pulmonary disease (COPD) Acute Pneumonia Acute Condition: SERIOUS
[2018-01-09 23:27] LABS: EOSINOPHIL 1 % (0.0-3.0); LARGE PLATELETS PRESENT; LYMPHOCYTE 6 % (22.0-35.0); MONOCYTE 7 % (1.0-6.0); NEUTROPHIL 86 % (50.0-70.0)
[2018-01-09 23:30] LABS: URINE BILIRUBIN NEGATIVE (NEGATIVE); URINE BLOOD TRACE-INTACT (NEGATIVE); URINE GLUCOSE (UA) NEGATIVE (NEGATIVE); URINE LEUKOCYTE ESTERASE NEGATIVE Leu/uL (NEGATIVE); URINE PROTEIN 100 mg/dL (<30 mg/dL); URINE UROBILINOGEN 0.2 E.U./dL (<1 E.U./dL)
[2018-01-09] MEDS ORDERED: Magnesium Sulfate 1 gm in D5W 1 GM/100 ML BAG IVPB ONE (23:37)
[2018-01-09 23:51] LABS: URINE APPEARANCE CLEAR (CLEAR); URINE COLOR YELLOW (YELLOW)
[2018-01-10] LABS: URINE EPITHELIAL CELLS 0 - 2 /hpf (0-5); URINE WBC 0 - 2 /hpf (0-6)
--- NOTE | 2018-01-10 00:52 | CP.PCM.HP ---
History of Present Illness - History of Present Illness History of Present Illness: CC: SOB and cough Mr Vargas, 52 year old malel, active smoker, with PMH COPD (3L O2 at home and daily prednisone) with hx intubation last admission, CAD, systolic CHF (EF 15-20 %), Afib on coumadin, and diabetes c/o shortness of breath and productive cough (green sputum) x 2 days. After last admission, pt went home. His breathing was baseline until several days ago when he started coughing and SOB. The cough was with greenish sputum. Pt called the paramedics yesterday because he was afraid of possibly having pneumonia once again. Paramedics came, patient had a breathing treatment and expectorated a large amount of sputum. He felt much better and opted to not go to the hospital. However today he states he began feeling the same shortness of breath and cough with subjective fever and chills. Pt was taking steroid 10 per day, but took 20mg today. Denies recent antibiotics. (+) sick contacts this past week (ex- and daughter). ROS: (+) fevers, chills, productive cough with green sputum, and shortness of breath. Denies nausea, vomiting, diarrhea, abdominal pain, headache, body aches, dizziness, weakness. PMD: Dr Shell PMH: PMH COPD (3L O2 at home) with hx intubation, CAD, systolic CHF (EF 15-20% December 2016), Afib on coumadin, and diabetes PSH: umbilical hernia repair Family Hx: Denies Social Hx: Alternating his living arrangement with ex- and daughter. He has lost his own apartment due to losing his job Smokes 1/4 ppd. He was used to smoke 1/2-1ppd x 40 years, denies alcohol, drug use; lives with girlfriend Quit smoking in 2014 Allergies: NKDA, Cat dander Medications: Prednisone 10, Montelukast, Albuterol neb Coumadin 2, coreg 12.5 bid, Verapamil 40 TID, Digoxin 0.125, Lasix 40 TID Protonix, MgOx, folic acid, thiamine, folic acid Amaryl 2 ACB, gemfibroxil, Lipitor, alluporinol Cymbalta Past Patient History - Infectious Disease Hx of Infectious Diseases: None - Tetanus Immunizations Tetanus Immunization: Unknown - Past Medical History & Family History Past Medical History?: Yes - Past Social History Smoking Status: Heavy Smoker > 10 Cigarettes Daily - CARDIAC Hx Cardiac Disorders: Yes Hx Cardia Arrhythmia: Yes (a fib) Hx Congestive Heart Failure: Yes Hx Hypertension: Yes - PULMONARY Hx Respiratory Disorders: Yes (SOB /02/15) Hx Bronchitis: Yes Hx Chronic Obstructive Pulmonary Disease (COPD): Yes Hx Emphysema: Yes Hx Pneumonia: Yes Hx Sleep Apnea: Yes - NEUROLOGICAL HX Cerebrovascular Accident: No - HEENT Hx HEENT Problems: No Hx Blind: No Hx Cataracts: No Hx Deafness: No Hx Difficulty Chewing: No Hx Epistaxis: No Hx Glaucoma: No Hx Macular Degeneration: No - RENAL Hx Renal Failure: No - ENDOCRINE/METABOLIC Hx Endocrine Disorders: Yes Hx Diabetes Mellitus Type 2: Yes - HEMATOLOGICAL/ONCOLOGICAL Hx Unexplained Bleeding: No - INTEGUMENTARY Other/Comment: multiple skin discolorations to ble - MUSCULOSKELETAL/RHEUMATOLOGICAL Hx Falls: No - GASTROINTESTINAL Hx Gastrointestinal Disorders: Yes (obese) Other/Comment: umbilical hernia repair - GENITOURINARY/GYNECOLOGICAL Hx Genitourinary Disorders: Yes Hx Hematuria: Yes Hx Urinary Tract Infection: Yes - PSYCHIATRIC Hx Psychophysiologic Disorder: Yes Hx Anxiety: Yes Hx Substance Use: No - SURGICAL HISTORY Other/Comment: umbilical hernia sx - ANESTHESIA Hx Anesthesia: Yes Hx Anesthesia Reactions: No Hx Malignant Hyperthermia: No Meds Allergies/Adverse Reactions: Allergies Allergy/AdvReac Type Severity Reaction Status Date / Time cat dander Allergy SHORTNESS Uncoded 07/12/17 04:25 OF BREATH Physical Exam - Constitutional Appears: Non-toxic Additional comments: Wearing face mask, able to complete 1 sentence - Head Exam Head Exam: ATRAUMATIC, NORMAL INSPECTION, NORMOCEPHALIC - Eye Exam Eye Exam: EOMI, Normal appearance, PERRL. absent: Scleral icterus Pupil Exam: NORMAL ACCOMODATION - ENT Exam ENT Exam: Mucous Membranes Moist - Neck Exam Additional comments: supple, no JVD - Respiratory Exam Respiratory Exam: Clear to Auscultation Bilateral, Rhonchi, Wheezes - Cardiovascular Exam Cardiovascular Exam: REGULAR RHYTHM, +S1, +S2 - GI/Abdominal Exam GI & Abdominal Exam: Normal Bowel Sounds, Soft. absent: Distended, Firm, Guarding, Rigid - Extremities Exam Extremities exam: Positive for: normal capillary refill, pedal pulses present. Negative for: calf tenderness, pedal edema - Neurological Exam Neurological exam: Alert, Oriented x3 - Psychiatric Exam Psychiatric exam: Normal Affect, Normal Mood - Skin Skin Exam: Diaphoretic, Warm Results - Vital Signs Recent Vital Signs: Last Vital Signs Temp 98.5 F 01/09/18 22:17 Pulse 71 01/09/18 22:17 Resp 18 01/09/18 22:17 BP 160/62 H 01/09/18 22:17 Pulse Ox 96 01/09/18 22:17 - Labs Result Diagrams: 01/09/18 22:49 01/09/18 22:49 Labs: Laboratory Results - last 24 hr 01/09/18 01/09/18 01/09/18 22:49 22:49 23:18 WBC 25.9 H* D RBC 4.16 Hgb 12.8 L D Hct 38.6 L MCV 92.8 MCH 30.8 MCHC 33.2 RDW 14.5 Plt Count 353 MPV 10.1 Gran % 86.1 H Lymph % (Auto) 5.0 L [place] % (Auto) 8.1 H Eos % (Auto) 0.7 L Baso % (Auto) 0.1 Gran # 22.32 H Lymph # (Auto) 1.3 [place] # (Auto) 2.1 H Eos # (Auto) 0.2 Baso # (Auto) 0.02 Neutrophils % (Manual) 86 H Lymphocytes % (Manual) 6 L Monocytes % (Manual) 7 H Eosinophils % (Manual) 1 Large Platelets Present pCO2 pO2 HCO3 ABG pH ABG Total CO2 ABG O2 Saturation ABG O2 Content ABG Base Excess ABG Hemoglobin ABG Carboxyhemoglobin POC ABG HHb (Measured) ABG Methemoglobin ABG O2 Capacity Hgb O2 Saturation FiO2 Sodium 143 Potassium 4.0 Chloride 90 L Carbon Dioxide 38 H Anion Gap 19 BUN 20 Creatinine 0.8 Est GFR ( Amer) > 60 Est GFR (Non-Af Amer) > 60 Random Glucose 214 H Calcium 9.1 Phosphorus 3.1 Magnesium 1.4 L Troponin I 0.02 D Urine Color Yellow Urine Appearance Clear Urine pH 6.0 Ur Specific [place] 1.025 Urine Protein 100 H Urine Glucose (UA) Negative Urine Ketones Negative Urine Blood Trace-intact H Urine Nitrate Negative Urine Bilirubin Negative Urine Urobilinogen 0.2 Ur Leukocyte Esterase Negative Urine RBC 1 - 3 Urine WBC 0 - 2 Ur Epithelial Cells 0 - 2 01/09/18 23:19 WBC RBC Hgb Hct MCV MCH MCHC RDW Plt Count MPV Gran % Lymph % (Auto) [place] % (Auto) Eos % (Auto) Baso % (Auto) Gran # Lymph # (Auto) [place] # (Auto) Eos # (Auto) Baso # (Auto) Neutrophils % (Manual) Lymphocytes % (Manual) Monocytes % (Manual) Eosinophils % (Manual) Large Platelets pCO2 68 H pO2 169.0 H HCO3 41.2 H* ABG pH 7.39 ABG Total CO2 43.3 H ABG O2 Saturation 99.4 H ABG O2 Content 17.0 ABG Base Excess 13.3 H ABG Hemoglobin 12.5 ABG Carboxyhemoglobin 3.7 H POC ABG HHb (Measured) 0.6 ABG Methemoglobin 0.7 ABG O2 Capacity 17.1 Hgb O2 Saturation 95.0 FiO2 40.0 Sodium Potassium Chloride Carbon Dioxide Anion Gap BUN Creatinine Est GFR ( Amer) Est GFR (Non-Af Amer) Random Glucose Calcium Phosphorus Magnesium Troponin I Urine Color Urine Appearance Urine pH Ur Specific [place] Urine Protein Urine Glucose (UA) Urine Ketones Urine Blood Urine Nitrate Urine Bilirubin Urine Urobilinogen Ur Leukocyte Esterase Urine RBC Urine WBC Ur Epithelial Cells Assessment & Plan - Assessment and Plan (Free Text) Plan: Mr Vargas, 52 year old male, active smoker, with PMH COPD (3L O2 at home and daily prednisone) with hx intubation last admission, CAD, systolic CHF (EF 15-20 %), Afib on coumadin, and diabetes c/o shortness of breath and productive cough (green sputum) x 2 days. CXR shows RLL infiltrates pending official read. Lung sounds were diffuse rhronus. Pt is able to complete sentences without pause. COPD exacerbation Chronic COPD likely Gold 4-5, O2 dependent - 5L face mask, titrate to SaO2 > 90 - Azithromycin, rocephin - Steroid 40 q 12 - Duoneb q6 RENE, q2 PRN - Continue home montelukast - Add pulmicort QUestionable pneumoia - CXR pending official read - pending procalc, BNP, lactic acid - Pending blood and sputum culture Hx A fib CAD Hx systolic CHF ef 15-20% - Daily INR - Continue home Coumadin 2 q other day - Continue home coreg 12.5 bid, Verapamil 40 TID, Digoxin 0.125, Lasix 40 TID Diabetes with neuropathy - A1C - Continue home amaryl 1 ACD - ISSS-low - Home Cymbalta Active smoker - Conducted smoking cessation counseling - nicoderm patch GERD - home protonix Diet suppl - MgOx, folic acid, thiamine, folic acid HLD - gemfibroxil, Lipitor Gout - alluporinol Prophylaxis - Home coumadin, Home protonix s/r/d/w Dr Romero
[2018-01-10] MEDS: Albuterol-Ipratrop 3 mg / 0.5 (3 ml) UD IH SCH ×6 (01:06→08:06)
[2018-01-10] MEDS ORDERED: Albuterol-Ipratrop 3 mg / 0.5 (3 ml) UD IH PRN ×2 (02:11→02:14)
[2018-01-10] MEDS ORDERED: Pantoprazole 40 mg EC Tab PO SCH (06:00)
[2018-01-10 06:23] LABS: GRAN # 20.3 (1.4-6.5); GRAN % 96.6 % (50.0-68.0); HEMOGLOBIN 12.1 g/dL (14.0-18.0); LYMPH # 0.5 (1.2-3.4); LYMPH % 2.5 % (22.0-35.0); MEAN CELL VOLUME 92.3 fl (80.0-105.0); MEAN CORPUSCULAR HEMOGLOBIN 30.1 pg (25.0-35.0); MEAN CORPUSCULAR HGB CONC 32.6 g/dl (31.0-37.0); MEAN PLATELET VOLUME 10.2 fl (7.0-11.0); MONO # 0.2 (0.1-0.6); MONO % 0.9 % (1.0-6.0); RBC 4.02 10^6/uL (3.5-6.1); RED CELL DISTRIBUTION WIDTH 14.4 % (11.5-14.5)
[2018-01-10 06:48] LABS: INR 2.13 (0.93-1.08); PARTIAL THROMBOPLASTIN TIME 30.1 Seconds (25.1-36.5); PROTHROMBIN TIME 24.9 SECONDS (9.4-12.5)
[2018-01-10 06:58] VITALS: PULSE 85; TEMP 97.4
[2018-01-10 07:02] LABS: ALB/GLOB RATIO 1.1 (1.1-1.8); ALT/SGPT 29 U/L (7-56); AST/SGOT 27 U/L (17-59); BLOOD UREA NITROGEN 22 mg/dL (7-21); CALCIUM 8.9 mg/dL (8.4-10.5); GFR AFRICAN-AMERICAN > 60; GFR NON-AFRICAN AMERICAN > 60
[2018-01-10 07:06] LABS: FREE T4 1.68 ng/dL (0.78-2.19)
[2018-01-10] MEDS ORDERED: Insulin Reg-LOW-Coverage SC SCH (07:30)
[2018-01-10] MEDS ORDERED: Budesonide 0.25 mg/2 ml Inhal Susp UD IH SCH (08:00)
[2018-01-10] MEDS ORDERED: Albuterol-Ipratrop 3 mg / 0.5 (3 ml) UD IH SCH ×2 (08:00→11:30)
[2018-01-10] MEDS: guaiFENesin-Codeine 100-10mg/5ml Syrup (5 ml) UD PO SCH ×2 (08:02→08:04)
--- NOTE | 2018-01-10 08:57 | RAD ---
HISTORY: COPD exacerbation COMPARISON: 08/10/2017 FINDINGS: LUNGS: No active pulmonary disease. PLEURA: No significant pleural effusion identified, no pneumothorax apparent. CARDIOVASCULAR: Mild cardiomegaly OSSEOUS STRUCTURES: No significant abnormalities. VISUALIZED UPPER ABDOMEN: Normal. OTHER FINDINGS: None. IMPRESSION: No active disease.
[2018-01-10 09:57] VITALS: BP 124/75; RESP 18; O2SAT 95
[2018-01-10] MEDS ORDERED: cefTRIAXone 1 gm 1 GM/100 ML BAG IVPB SCH (10:00)
[2018-01-10] MEDS ORDERED: Magnesium Oxide 400 mg Tab UD PO SCH (10:00)
[2018-01-10] MEDS ORDERED: MethylPREDNISolone 40 mg Vial IVP SCH ×2 (10:00→12:00)
[2018-01-10] MEDS ORDERED: Azithromycin 500MG/NS 250ml 500 MG/250 ML BAG IVPB SCH (10:00)
[2018-01-10] MEDS ORDERED: Cholecalciferol 1,000 INTLU TAB PO SCH (10:00)
--- NOTE | 2018-01-10 10:23 | CARD ---
APPROVED REPORT EKG Measurement Heart [id number] <Conclusion> Sinus rhythm with frequent premature ventricular complex LBBB
--- NOTE | 2018-01-10 11:39 | CP.PCM.DIS ---
<Gurpreet Quiñonez - Last Filed: 01/10/18 11:36> Provider - Provider Date of Admission: 01/10/18 00:33 Attending physician: Tamanna Rodrigues MD Primary care physician: Cedrick Shell MD Time Spent in preparation of Discharge (in minutes): 45 Hospital Course - Lab Results Lab Results: Most Recent Lab Values WBC 21.0 10^3/ul (4.5-11.0) H 01/10/18 05:30 RBC 4.02 10^6/uL (3.5-6.1) 01/10/18 05:30 Hgb 12.1 g/dL (14.0-18.0) L 01/10/18 05:30 Hct 37.1 % (42.0-52.0) L 01/10/18 05:30 MCV 92.3 fl (80.0-105.0) 01/10/18 05:30 MCH 30.1 pg (25.0-35.0) 01/10/18 05:30 MCHC 32.6 g/dl (31.0-37.0) 01/10/18 05:30 RDW 14.4 % (11.5-14.5) 01/10/18 05:30 Plt Count 317 10^3/uL (120.0-450.0) 01/10/18 05:30 MPV 10.2 fl (7.0-11.0) 01/10/18 05:30 Gran % 96.6 % (50.0-68.0) H 01/10/18 05:30 Lymph % (Auto) 2.5 % (22.0-35.0) L 01/10/18 05:30 [place] % (Auto) 0.9 % (1.0-6.0) L 01/10/18 05:30 Eos % (Auto) 0.0 % (1.5-5.0) L 01/10/18 05:30 Baso % (Auto) 0.0 % (0.0-3.0) 01/10/18 05:30 Gran # 20.30 (1.4-6.5) H 01/10/18 05:30 Lymph # (Auto) 0.5 (1.2-3.4) L 01/10/18 05:30 [place] # (Auto) 0.2 (0.1-0.6) 01/10/18 05:30 Eos # (Auto) 0.0 (0.0-0.7) 01/10/18 05:30 Baso # (Auto) 0.00 K/mm3 (0.0-2.0) 01/10/18 05:30 Neutrophils % (Manual) 86 % (50.0-70.0) H 01/09/18 22:49 Lymphocytes % (Manual) 6 % (22.0-35.0) L 01/09/18 22:49 Monocytes % (Manual) 7 % (1.0-6.0) H 01/09/18 22:49 Eosinophils % (Manual) 1 % (0.0-3.0) 01/09/18 22:49 Large Platelets Present 01/09/18 22:49 PT 24.9 SECONDS (9.4-12.5) H 01/10/18 05:30 INR 2.13 (0.93-1.08) H 01/10/18 05:30 APTT 30.1 Seconds (25.1-36.5) 01/10/18 05:30 pCO2 68 mm/Hg (35-45) H 01/09/18 23:19 pO2 169.0 mm/Hg (80-100) H 01/09/18 23:19 HCO3 41.2 mmol/L (21-28) H* 01/09/18 23:19 ABG pH 7.39 (7.35-7.45) 01/09/18 23:19 ABG Total CO2 43.3 mmol.L (22-28) H 01/09/18 23:19 ABG O2 Saturation 99.4 % (95-98) H 01/09/18 23:19 ABG O2 Content 17.0 ML/dl (15-23) 01/09/18 23:19 ABG Base Excess 13.3 mmol/L (-2.0-3.0) H 01/09/18 23:19 ABG Hemoglobin 12.5 g/dL (11.7-17.4) 01/09/18 23:19 ABG Carboxyhemoglobin 3.7 % (0.5-1.5) H 01/09/18 23:19 POC ABG HHb (Measured) 0.6 % (0-5) 01/09/18 23:19 ABG Methemoglobin 0.7 % (0.0-3.0) 01/09/18 23:19 ABG O2 Capacity 17.1 mL/dl (16-24) 01/09/18 23:19 Hgb O2 Saturation 95.0 % (95.0-98.0) 01/09/18 23:19 FiO2 40.0 % 01/09/18 23:19 Sodium 142 mmol/L (132-148) 01/10/18 05:30 Potassium 4.1 mmol/L (3.6-5.0) 01/10/18 05:30 Chloride 91 mmol/L (98-107) L 01/10/18 05:30 Carbon Dioxide 37 mmol/L (21-33) H 01/10/18 05:30 Anion Gap 18 (10-20) 01/10/18 05:30 BUN 22 mg/dL (7-21) H 01/10/18 05:30 Creatinine 0.8 mg/dl (0.8-1.5) 01/10/18 05:30 Est GFR ( Amer) > 60 01/10/18 05:30 Est GFR (Non-Af Amer) > 60 01/10/18 05:30 POC Glucose (mg/dL) 306 mg/dL (65-110) H 01/10/18 07:51 Random Glucose 324 mg/dL (70-110) H* D 01/10/18 05:30 Lactic Acid 1.3 mmol/L (0.7-2.1) 01/10/18 01:15 Calcium 8.9 mg/dL (8.4-10.5) 01/10/18 05:30 Phosphorus 3.1 mg/dL (2.5-4.5) 01/09/18 22:49 Magnesium 1.4 mg/dL (1.7-2.2) L 01/09/18 22:49 Total Bilirubin 0.4 mg/dL (0.2-1.3) 01/10/18 05:30 AST 27 U/L (17-59) 01/10/18 05:30 ALT 29 U/L (7-56) 01/10/18 05:30 Alkaline Phosphatase 96 U/L (38-126) 01/10/18 05:30 Troponin I 0.02 ng/mL D 01/09/18 22:49 NT-Pro-B Natriuret Pep 1710 pg/mL (0-450) H 01/09/18 22:49 Total Protein 7.5 g/dL (5.8-8.3) 01/10/18 05:30 Albumin 4.0 g/dL (3.0-4.8) 01/10/18 05:30 Globulin 3.6 gm/dL 01/10/18 05:30 Albumin/Globulin Ratio 1.1 (1.1-1.8) 01/10/18 05:30 Free T4 1.68 ng/dL (0.78-2.19) 01/10/18 05:30 TSH 3rd Generation 0.27 mIU/mL (0.46-4.68) L 01/10/18 05:30 Urine Color Yellow (YELLOW) 01/09/18 23:18 Urine Appearance Clear (CLEAR) 01/09/18 23:18 Urine pH 6.0 (4.7-8.0) 01/09/18 23:18 Ur Specific [place] 1.025 (1.005-1.035) 01/09/18 23:18 Urine Protein 100 mg/dL (<30 mg/dL) H 01/09/18 23:18 Urine Glucose (UA) Negative mg/dL (NEGATIVE) 01/09/18 23:18 Urine Ketones Negative mg/dL (NEGATIVE) 01/09/18 23:18 Urine Blood Trace-intact (NEGATIVE) H 01/09/18 23:18 Urine Nitrate Negative (NEGATIVE) 01/09/18 23:18 Urine Bilirubin Negative (NEGATIVE) 01/09/18 23:18 Urine Urobilinogen 0.2 E.U./dL (<1 E.U./dL) 01/09/18 23:18 Ur Leukocyte Esterase Negative [place]/uL (NEGATIVE) 01/09/18 23:18 Urine RBC 1 - 3 /hpf (0-2) 01/09/18 23:18 Urine WBC 0 - 2 /hpf (0-6) 01/09/18 23:18 Ur Epithelial Cells 0 - 2 /hpf (0-5) 01/09/18 23:18 - Hospital Course Hospital Course: Mr Vargas, 52 year old mal[place], active smoker, with PMH COPD (3L O2 at home and daily prednisone) with hx intubation last admission, CAD, systolic CHF (EF 15-20 %), Afib on coumadin, and diabetes c/o shortness of breath and productive cough (green sputum) x 2 days. After last admission, pt went home. His breathing was baseline until several days ago when he started coughing and SOB. The cough was with greenish sputum. Pt called the paramedics yesterday because he was afraid of possibly having pneumonia once again. Paramedics came, patient had a breathing treatment and expectorated a large amount of sputum. He felt much better and opted to not go to the hospital. However today he states he began feeling the same shortness of breath and cough with subjective fever and chills. Pt was taking steroid 10 per day, but took 20mg today. Denies recent antibiotics. Hospital course. Patient was started on antibiotics, duonebs and steroids. He was still wheezing this am but insisted on leaving AMA. I explained the risks of the patient leaving at this stage in his treatment as well as the benefits that would have been provided if he stayed in the hospital but he still insisted on leaving. I provided him with a medrol dose pack. Discharge Exam - Head Exam Head Exam: ATRAUMATIC, NORMAL INSPECTION, NORMOCEPHALIC - Eye Exam Eye Exam: EOMI, Normal appearance, PERRL Pupil Exam: NORMAL ACCOMODATION, PERRL - Respiratory Exam Respiratory Exam: Rhonchi, Wheezes - Cardiovascular Exam Cardiovascular Exam: REGULAR RHYTHM - GI/Abdominal Exam GI & Abdominal Exam: Normal Bowel Sounds, Unremarkable - Rectal Exam Rectal Exam: NORMAL INSPECTION - Neurological Exam Neurological exam: Alert, CN II-XII Intact, Normal Gait, Oriented x3, Reflexes Normal - Psychiatric Exam Psychiatric exam: Normal Affect, Normal Mood - Skin Skin Exam: Dry, Intact, Normal Color, Warm Discharge Plan - Discharge Medications Prescriptions: Methylprednisolone [Medrol Dose Pack (21 tabs)] 4 mg PO DAILY #21 mg - Follow Up Plan Condition: SERIOUS Disposition: AGAINST MEDICAL ADVICE Referrals: Cedrick Shell MD [Primary Care Provider] - <Tamanna Rodrigues - Last Filed: 01/10/18 15:15> Provider - Provider Date of Admission: 01/10/18 00:33 Attending physician: Tamanna Rodrigues MD Primary care physician: Cedrick Shell MD Hospital Course - Lab Results Lab Results: Most Recent Lab Values WBC 21.0 10^3/ul (4.5-11.0) H 01/10/18 05:30 RBC 4.02 10^6/uL (3.5-6.1) 01/10/18 05:30 Hgb 12.1 g/dL (14.0-18.0) L 01/10/18 05:30 Hct 37.1 % (42.0-52.0) L 01/10/18 05:30 MCV 92.3 fl (80.0-105.0) 01/10/18 05:30 MCH 30.1 pg (25.0-35.0) 01/10/18 05:30 MCHC 32.6 g/dl (31.0-37.0) 01/10/18 05:30 RDW 14.4 % (11.5-14.5) 01/10/18 05:30 Plt Count 317 10^3/uL (120.0-450.0) 01/10/18 05:30 MPV 10.2 fl (7.0-11.0) 01/10/18 05:30 Gran % 96.6 % (50.0-68.0) H 01/10/18 05:30 Lymph % (Auto) 2.5 % (22.0-35.0) L 01/10/18 05:30 [place] % (Auto) 0.9 % (1.0-6.0) L 01/10/18 05:30 Eos % (Auto) 0.0 % (1.5-5.0) L 01/10/18 05:30 Baso % (Auto) 0.0 % (0.0-3.0) 01/10/18 05:30 Gran # 20.30 (1.4-6.5) H 01/10/18 05:30 Lymph # (Auto) 0.5 (1.2-3.4) L 01/10/18 05:30 [place] # (Auto) 0.2 (0.1-0.6) 01/10/18 05:30 Eos # (Auto) 0.0 (0.0-0.7) 01/10/18 05:30 Baso # (Auto) 0.00 K/mm3 (0.0-2.0) 01/10/18 05:30 Neutrophils % (Manual) 86 % (50.0-70.0) H 01/09/18 22:49 Lymphocytes % (Manual) 6 % (22.0-35.0) L 01/09/18 22:49 Monocytes % (Manual) 7 % (1.0-6.0) H 01/09/18 22:49 Eosinophils % (Manual) 1 % (0.0-3.0) 01/09/18 22:49 Large Platelets Present 01/09/18 22:49 PT 24.9 SECONDS (9.4-12.5) H 01/10/18 05:30 INR 2.13 (0.93-1.08) H 01/10/18 05:30 APTT 30.1 Seconds (25.1-36.5) 01/10/18 05:30 pCO2 68 mm/Hg (35-45) H 01/09/18 23:19 pO2 169.0 mm/Hg (80-100) H 01/09/18 23:19 HCO3 41.2 mmol/L (21-28) H* 01/09/18 23:19 ABG pH 7.39 (7.35-7.45) 01/09/18 23:19 ABG Total CO2 43.3 mmol.L (22-28) H 01/09/18 23:19 ABG O2 Saturation 99.4 % (95-98) H 01/09/18 23:19 ABG O2 Content 17.0 ML/dl (15-23) 01/09/18 23:19 ABG Base Excess 13.3 mmol/L (-2.0-3.0) H 01/09/18 23:19 ABG Hemoglobin 12.5 g/dL (11.7-17.4) 01/09/18 23:19 ABG Carboxyhemoglobin 3.7 % (0.5-1.5) H 01/09/18 23:19 POC ABG HHb (Measured) 0.6 % (0-5) 01/09/18 23:19 ABG Methemoglobin 0.7 % (0.0-3.0) 01/09/18 23:19 ABG O2 Capacity 17.1 mL/dl (16-24) 01/09/18 23:19 Hgb O2 Saturation 95.0 % (95.0-98.0) 01/09/18 23:19 FiO2 40.0 % 01/09/18 23:19 Sodium 142 mmol/L (132-148) 01/10/18 05:30 Potassium 4.1 mmol/L (3.6-5.0) 01/10/18 05:30 Chloride 91 mmol/L (98-107) L 01/10/18 05:30 Carbon Dioxide 37 mmol/L (21-33) H 01/10/18 05:30 Anion Gap 18 (10-20) 01/10/18 05:30 BUN 22 mg/dL (7-21) H 01/10/18 05:30 Creatinine 0.8 mg/dl (0.8-1.5) 01/10/18 05:30 Est GFR ( Amer) > 60 01/10/18 05:30 Est GFR (Non-Af Amer) > 60 01/10/18 05:30 POC Glucose (mg/dL) 306 mg/dL (65-110) H 01/10/18 07:51 Random Glucose 324 mg/dL (70-110) H* D 01/10/18 05:30 Hemoglobin A1c 8.5 % (4.2-6.5) H 01/10/18 05:30 Lactic Acid 1.3 mmol/L (0.7-2.1) 01/10/18 01:15 Calcium 8.9 mg/dL (8.4-10.5) 01/10/18 05:30 Phosphorus 3.1 mg/dL (2.5-4.5) 01/09/18 22:49 Magnesium 1.4 mg/dL (1.7-2.2) L 01/09/18 22:49 Total Bilirubin 0.4 mg/dL (0.2-1.3) 01/10/18 05:30 AST 27 U/L (17-59) 01/10/18 05:30 ALT 29 U/L (7-56) 01/10/18 05:30 Alkaline Phosphatase 96 U/L (38-126) 01/10/18 05:30 Troponin I 0.02 ng/mL D 01/09/18 22:49 NT-Pro-B Natriuret Pep 1710 pg/mL (0-450) H 01/09/18 22:49 Total Protein 7.5 g/dL (5.8-8.3) 01/10/18 05:30 Albumin 4.0 g/dL (3.0-4.8) 01/10/18 05:30 Globulin 3.6 gm/dL 01/10/18 05:30 Albumin/Globulin Ratio 1.1 (1.1-1.8) 01/10/18 05:30 Procalcitonin 0.15 NG/ML (0.19-0.49) L 01/09/18 22:49 Free T4 1.68 ng/dL (0.78-2.19) 01/10/18 05:30 TSH 3rd Generation 0.27 mIU/mL (0.46-4.68) L 01/10/18 05:30 Urine Color Yellow (YELLOW) 01/09/18 23:18 Urine Appearance Clear (CLEAR) 01/09/18 23:18 Urine pH 6.0 (4.7-8.0) 01/09/18 23:18 Ur Specific [place] 1.025 (1.005-1.035) 01/09/18 23:18 Urine Protein 100 mg/dL (<30 mg/dL) H 01/09/18 23:18 Urine Glucose (UA) Negative mg/dL (NEGATIVE) 01/09/18 23:18 Urine Ketones Negative mg/dL (NEGATIVE) 01/09/18 23:18 Urine Blood Trace-intact (NEGATIVE) H 01/09/18 23:18 Urine Nitrate Negative (NEGATIVE) 01/09/18 23:18 Urine Bilirubin Negative (NEGATIVE) 01/09/18 23:18 Urine Urobilinogen 0.2 E.U./dL (<1 E.U./dL) 01/09/18 23:18 Ur Leukocyte Esterase Negative [place]/uL (NEGATIVE) 01/09/18 23:18 Urine RBC 1 - 3 /hpf (0-2) 01/09/18 23:18 Urine WBC 0 - 2 /hpf (0-6) 01/09/18 23:18 Ur Epithelial Cells 0 - 2 /hpf (0-5) 01/09/18 23:18 Attending/Attestation - Attestation I have personally seen and examined this patient.: Yes I have fully participated in the care of the patient.: Yes I have reviewed all pertinent clinical information, including history, physical exam and plan: Yes Notes (Text): Patient left AMA.
[2018-01-10] MEDS ORDERED: Digoxin 125 mcg (0.125 mg) Tab PO SCH (14:00)
== END 2018-01-10 10:22 | disposition left against medical advice (07) | DRG 541 ==
LOC: ED 22:12 → ERH 01-10 00:33 → 2RNO 01-10 01:58
PROVIDERS: ADMIT Internal Medicine; ATTEND Hospitalist
DX: J44.1 Chronic obstructive pulmonary disease with (acute) exacerbation (principal); I50.22 Chronic systolic (congestive) heart failure; I11.0 Hypertensive heart disease with heart failure; E11.40 Type 2 diabetes mellitus with diabetic neuropathy, unspecified; I48.91 Unspecified atrial fibrillation; F17.210 Nicotine dependence, cigarettes, uncomplicated; G47.30 Sleep apnea, unspecified; I25.10 Atherosclerotic heart disease of native coronary artery without angina pectoris; Z79.01 Long term (current) use of anticoagulants; Z87.01 Personal history of pneumonia (recurrent); Z87.440 Personal history of urinary (tract) infections; Z91.19 Patient's noncompliance with other medical treatment and regimen; Z99.81 Dependence on supplemental oxygen; Z91.048 Other nonmedicinal substance allergy status